=== PATIENT | female | born 1980 | race Caucasian/White ===

== ENCOUNTER 2021-08-04 15:05 | Outpatient (REF) | payer MEDICARE, MEDICAID, SELFPAY ==
[2021-08-04 20:26] LABS: ALT 23 U/L (14-59); AST 21 U/L (15-37); Albumin 3.5 g/dL (3.4-5.0); Alkaline Phosphatase 99 U/L (46-116); Anion Gap 8.9 mmol/L (3-11); BUN 15 mg/dL (7-18); Bilirubin, Total 0.3 mg/dL (0.2-1.0); CO2 27.1 mmol/L (21.0-32.0); CREATININE 0.7 mg/dL (0.55-1.02); Calcium 8.3 mg/dL (8.5-10.1); Calculated LDL 136 mg/dL (<100); Chloride 104 mmol/L (98-107); Cholesterol 237 mg/dL (<200); Glucose 170 mg/dL (74-106); HDL Cholesterol 40 mg/dL (40-60); Potassium 3.5 mmol/L (3.5-5.1); Sodium 140 mmol/L (136-145); Total Protein 6.7 g/dL (6.4-8.2); Triglyceride 307 mg/dL (<150)
[2021-08-04 21:55] LABS: COMMENT (LAB VIEW ONLY) 153.36 mg/dL; Microalb ug/mg Crea 4.2 ug/mg Cr
[2021-08-10 01:36] LABS: GAD65 Ab Assay 0.01 nmol/L (<= 0.02)
== END 2021-08-04 15:06 | disposition home or self-care (01) ==
LOC: NCHCN 15:05
PROVIDERS: Visit Provider Nurse Practitioner Family
DX: E11.65 Type 2 diabetes mellitus with hyperglycemia (principal); Z79.899 Other long term (current) drug therapy
CPT/HCPCS: 80053; 80061; 86341; 82043; 82570

== ENCOUNTER 2021-12-29 18:31 | Outpatient (REF) | payer MEDICARE, MEDICAID, SELFPAY ==
[2021-12-29 15:14] LABS: Abs Immature Grans 0.02 10^3/uL (0.0-0.06); Absolute Basophil Count 0.05 10^3/uL (0.0-0.2); Absolute Eosinophil Count 0.37 10^3/uL (0.0-0.7); Absolute Lymphocyte Count 2.82 10^3/uL (1.2-3.4); Absolute Monocyte Count 0.77 10^3/uL (0.1-0.8); Absolute Neutrophil Count 5.45 10^3/uL (1.2-6.7); Basophils % 0.5; Eosinophils % 3.9; HCT 41.7 % (36.0-46.0); HGB 14.1 g/dL (11.2-15.7); Immature Grans % 0.2; Lymphocytes % 29.7; MCH 30.9 pg (27.0-33.0); MCHC 33.8 % (32.0-36.0); MCV 91 fL (80-95); MPV 10.7 fL (8.0-11.0); Monocytes % 8.1; Neutrophils % 57.6; Platelet Count 305 10^3/uL (130-400); RBC 4.56 10^6/uL (3.93-5.22); RDW 12.1 % (11.7-14.6); RDW-SD 40.7 fL; WBC 9.48 10^3/uL (4.4-10.8)
[2021-12-29 15:53] LABS: ALT 20 U/L (14-59); AST 10 U/L (15-37); Albumin 3.6 g/dL (3.4-5.0); Alkaline Phosphatase 107 U/L (46-116); Anion Gap 6.8 mmol/L (3-11); BUN 14 mg/dL (7-18); Bilirubin, Total 0.2 mg/dL (0.2-1.0); CO2 28.2 mmol/L (21.0-32.0); CREATININE 0.6 mg/dL (0.55-1.02); Calcium 8.7 mg/dL (8.5-10.1); Chloride 103 mmol/L (98-107); Glucose 220 mg/dL (74-106); Potassium 4.2 mmol/L (3.5-5.1); Sodium 138 mmol/L (136-145); TSH (W/Ref FT4) 1.46 uIU/mL (0.36-3.74); Total Protein 6.6 g/dL (6.4-8.2)
[2021-12-29 16:59] LABS: Hemoglobin A1C 7.2 % (<5.7)
== END 2021-12-29 18:32 | disposition home or self-care (01) ==
LOC: NCHCN 18:31
PROVIDERS: Visit Provider Nurse Practitioner Family
DX: F43.22 Adjustment disorder with anxiety (principal); E11.9 Type 2 diabetes mellitus without complications
CPT/HCPCS: 80053; 83036; 84443; 85025

== ENCOUNTER 2022-02-23 13:25 | Emergency (ER) | payer MEDICARE, MEDICAID, SELFPAY ==
[2022-02-23 13:47] VITALS: BP 113/72; PULSE 103; RESP 20; TEMP 37.1; O2SAT 96
--- NOTE | 2022-02-23 14:00 | DI.CT_ITS ---
Exam(s) CT RENAL COLIC WO EXAM: CT RENAL COLIC WO CLINICAL HISTORY: left flank low back pain. TECHNIQUE: Imaging Protocol: Axial computed tomography images with coronal and sagittal reformatted images were created and reviewed. CONTRAST MATERIAL: Noncontrast COMPARISON: No exams were available for comparison FINDINGS: ABDOMEN: Lung Bases: Normal where visualized. Liver: Mildly enlarged. Mild fatty infiltration. No measurable mass. Gallbladder and biliary tract: No radiodense calculus or dilation. Pancreas: Normal density, no calcifications or inflammatory process. Spleen: Normal. Kidneys: Normal size, contour and axis. No radiodense stones or obstructive uropathy. No masses seen. Adrenal glands: No masses seen. Abdominal Aorta: Abdominal portion non-dilated. PELVIS: Bladder: Symmetric distention, no gross wall thickening. No evidence of stones.No visible mass. Bowel: No obstruction or bowel wall thickening. Appendix normal. Reproductive: Status post hysterectomy. Peritoneal cavity: No ascites, collection or mesenteric inflammatory response. Bones: Unremarkable for age.. IMPRESSION: Unremarkable CT scan of the abdomen and pelvis. RADIATION DOSE DELIVERED: 854.18mGy.cm Total DLP DATA REPOSITORY: All CT scans at this facility are submitted to the National Radiology Data Registry (NRDR) Dose Index Registry (DIR) with the [employer] ([employer]). RADIATION OPTIMIZATION: All CT scans at this facility use at least one of these dose optimization te chniques: automated exposure control; mA and/or kV adjustment per patient size (includes targeted exa ms where dose is matched to clinical indication); or iterative reconstruction.
[2022-02-23] MEDS: diazePAM 10 MG/2 ML SYR 5 MG IM (14:38)
[2022-02-23] MEDS: Lidocaine 5% Patch 1 PATCH TP (14:39)
--- NOTE | 2022-02-23 14:42 | NUR.NOTE ---
Nursing Note: PT MEDICATED IM VALIUM LEFT GLUT., LIDOCAINE PATCH PLACED LOWED MID SPINE PER PT REPORT OF AREA OF PAIN. PT TO DI VIA STRETCHER FOR ORDERED EXAM.
[2022-02-23 15:06] VITALS: BP 126/74; PULSE 95; RESP 18; O2SAT 97
[2022-02-23] MEDS: Ketorolac 30 MG/ML VIAL IVP (15:06)
--- NOTE | 2022-02-23 15:08 | ED.GENADUL_ITS ---
Discharge Plan Disposition Patient Disposition: Home Condition: Stable Discharge Details Clinical Impression: Pain in left lumbar region of back, Lumbar paraspinal muscle spasm Primary Care Provider: Unknown,Unknown ED Provider: Zack Downs Home Meds and New Rx's Prescriptions: New diazepam [Valium] 5 mg tablet 5 mg PO BID PRN (Reason: muscle spasm) Qty: 14 0RF Continued insulin aspart U-100 [Novolog Flexpen U-100 Insulin] 100 unit/mL (3 mL) Insulin Pen SUBCUT TID Discharge Instructions Instructions: Acute Low Back Pain (ED), Muscle Spasm (ED) Additional Instructions: Please take ibuprofen over the counter. Take 600mg by mouth every 6 hours as needed for pain. Please take acetaminophen (tylenol) - 650mg every 6 hours by mouth as needed for pain. Please use lidocaine patches. These are [id number]. Dose according to label. Use Valium only as prescribed for muscle relaxant. Please contact your primary care physician to arrange follow-up. Return to the ER immediately for any worsening or new concerning symptoms. Stand Alone Forms: Work Release Medical Decision Making 1512 --41-year-old female with history of insulin-dependent diabetes, renal stone on, COPD, here with severe left low back pain with radiation into her left leg over the past 6 days. Patient is neurologically intact. She does have focal tenderness left low thoracic/lumbar paraspinal with associated paraspinal muscle spasm. No overlying inflammatory changes. Consider renal stone given history. CT of the abdomen pelvis was interpreted by radiology, Dr. Cordova who noted normal study. For her discomfort patient was given Toradol 30 mg IV, Valium 5 mg IM, and lid ocaine patch. -- Patient reassessed and had worsening pain after coughing. She was given Dilaudid 1 mg IV. -- Patient was reassessed and notes significant improvement in pain. Plan for discharge with outpatient follow-up. Disposition decision was made weighing the risks and benefits of hospitalization versus outpatient treatment, the risk for further decompensation, and the patient's wishes. The patient was stable and requested discharge. Prior to discharge, my usual and customary return precautions were reviewed with the patient - this included follow-up instructions and reason to return to the emergency department if condition worsens, does not improve as expected, or other new concerns arise. Lab Data Lab results reviewed: Yes I reviewed the patient's lab results. Labs: Laboratory Tests Range/Units 02/23/22 02/23/22 15:00 15:00 WBC (4.4-10.8) 10^3/uL 7.96 RBC (3.93-5.22) 10^6/uL 4.68 Hgb (11.2-15.7) g/dL 14.3 Hct (36.0-46.0) % 42.2 MCV (80-95) fL 90 MCH (27.0-33.0) pg 30.6 MCHC (32.0-36.0) % 33.9 RDW (11.7-14.6) % 12.3 Plt Count (130-400) 10^3/uL 358 MPV (8.0-11.0) fL 10.0 Immature Gran % 0.3 Neutrophils % 60.6 Lymphocytes % 26.5 Monocytes % 9.4 Eosinophils % 2.8 Basophils % 0.4 Nucleated RBC % (0.0-0.3) % 0.0 Absolute Neutrophils (1.2-6.7) 10^3/uL 4.83 Absolute Lymphocytes (1.2-3.4) 10^3/uL 2.11 Absolute Monocytes (0.1-0.8) 10^3/uL 0.75 Absolute Eosinophils (0.0-0.7) 10^3/uL 0.22 Absolute Basophils (0.0-0.2) 10^3/uL 0.03 Sodium (136-145) mmol/L 141 Potassium (3.5-5.1) mmol/L 3.9 Chloride (98-107) mmol/L 108 H Carbon Dioxide (21.0-32.0) mmol/L 25.8 Anion Gap (3-11) mmol/L 7.2 BUN (7-18) mg/dL 17 Creatinine (0.55-1.02) mg/dL 0.5 L Est GFR (CKD-EPI 2020) (mL/min/1.73m2) 121.52 Glucose (74-106) mg/dL 123 H Calcium (8.5-10.1) mg/dL 8.3 L Magnesium (1.8-2.4) mg/dL 2.0 Total Bilirubin (0.2-1.0) mg/dL 0.2 AST (15-37) U/L 16 ALT (14-59) U/L 23 Alkaline Phosphatase (46-116) U/L 104 Total Protein (6.4-8.2) g/dL 6.8 Albumin (3.4-5.0) g/dL 3.6 HPI General Mode of arrival: ambulatory . Date/Time Provider Initiated Documentation: 02/23/22 13:52 . Limitations to Documentation: other (acuity of presentation) . Information obtained by: patient . HPI Narrative: 41-year-old female with history of COPD and insulin-dependent diabetes, presents with chief complaint of back pain. Back pain started on 1230 and has persisted. Patient does not recall any specific injury. She notes pain is localized to her left lower back and radiates down her left leg as a shooting pain that is severe and rated 10/10. Pain waxes and wanes. She notes pain is worse in certain positions. No associated numbness, tingling, bowel or bladder dysfunction. Patient does have a history of renal stones and had a large stone remotely. She denies associated fever or chills. Related Data Home Medications Medication Instructions Recorded Confirmed diazepam 5 mg tablet (Valium) 5 mg PO BID PRN muscle spasm #14 02/23/22 tabs insulin aspart U-100 100 unit/mL sliding scale dose subcut TID 02/23/22 (3 mL) subcutaneous pen (Novolog Flexpen U-100 Insulin aspart) Previous Rx's Medication Instructions Recorded diazepam 5 mg tablet (Valium) 5 mg PO BID PRN muscle spasm #14 02/23/22 tabs Allergies Allergy/AdvReac Type Severity Reaction Status Date / Time Penicillins Allergy Severe Anaphylaxis Unverified 02/23/22 13:52 General Stated Complaint: Orthopedic ARUN: 3 Review of Systems All systems reviewed & are unremarkable except as noted in HPI and below Constitutional Constitutional: Denies fever(s) Gastrointestinal Gastrointestinal: Denies abdominal pain Genitourinary Genitourinary: Denies difficulty voiding and Denies dysuria Musculoskeletal Musculoskeletal: Reports as per HPI PFSH All Active Problems (Updated 02/23/22 @ 15:57 by Zack Downs MD) Pain in left lumbar region of back (Acute) Lumbar paraspinal muscle spasm (Acute) Insulin dependent type 1 diabetes mellitus (Acute) COPD (chronic obstructive pulmonary disease) (Chronic) Social History Smoking/Tobacco Use Status: Never Smoking risk assessment performed?: Yes Alcohol Intake: never Substance use type: does not use Do you feel safe at home: Yes Do you feel safe in your relationship?: Yes Exam Const General: cooperative and uncomfortable HENMT Mouth: moist mucous membranes Eyes Conjunctivae: normal conjunctivae Sclera: normal sclerae Neck Neck: trachea midline Resp Auscultation: clear to auscultation bilaterally, no rales, no rhonchi and no wheezes Cardio Rate: regular rate and not tachycardic Rhythm: regular rhythm GI Palpation: soft, not firm, no guarding, no masses, not rigid and nontender Back/Spine/Pelvis Thoracic/Lumbar Spine: thoracic and lumbar spine normal to inspection, paraspinal tenderness (low thoracic and lumbar left with spasm) and No lumbar spinal tenderness Skin Rashes: rashes noted (Psoriatic rash on extremities) Neuro General: patient alert, patient awake, patient oriented x3 and tone normal Extrem General: no edema Psych Appearance: grossly normal Mental Status: mental status grossly normal Speech and Movement: speech and movement normal Course Vital Signs Vital signs: Vital Signs Temperature 37.1 C 02/23/22 13:47 Pulse 103 H 02/23/22 13:47 Respiratory Rate 20 02/23/22 13:47 Blood Pressure 113/72 02/23/22 13:47 Pulse Oximetry 96 02/23/22 13:47 Temperature 37.1 C 02/23/22 13:47 Temperature Source Tympanic 02/23/22 13:47 Pulse 95 H 02/23/22 15:06 Respiratory Rate 18 02/23/22 15:06 Blood Pressure 126/74 02/23/22 15:06 Blood Pressure Position Supine 02/23/22 13:47 Pulse Oximetry 97 02/23/22 15:06 Oxygen Delivery Method Room Air 02/23/22 15:06 Oxygen Flow Rate 0 02/23/22 15:06 Pain Level 8 02/23/22 15:06 Lab/Test Results Lab/Test Results: POC- Test(urine) Negative
[2022-02-23 15:15] LABS: Abs Immature Grans 0.02 10^3/uL (0.0-0.06); Absolute Basophil Count 0.03 10^3/uL (0.0-0.2); Absolute Eosinophil Count 0.22 10^3/uL (0.0-0.7); Absolute Lymphocyte Count 2.11 10^3/uL (1.2-3.4); Absolute Monocyte Count 0.75 10^3/uL (0.1-0.8); Absolute Neutrophil Count 4.83 10^3/uL (1.2-6.7); Basophils % 0.4; Eosinophils % 2.8; HCT 42.2 % (36.0-46.0); HGB 14.3 g/dL (11.2-15.7); Immature Grans % 0.3; Lymphocytes % 26.5; MCH 30.6 pg (27.0-33.0); MCHC 33.9 % (32.0-36.0); MCV 90 fL (80-95); Monocytes % 9.4; Neutrophils % 60.6; Platelet Count 358 10^3/uL (130-400); RBC 4.68 10^6/uL (3.93-5.22); RDW 12.3 % (11.7-14.6); RDW-SD 40.3 fL; WBC 7.96 10^3/uL (4.4-10.8)
[2022-02-23] MEDS: HYDROmorphone 2 MG/ML SYR 1 MG IVP (15:23)
[2022-02-23 15:32] LABS: ALT 23 U/L (14-59); AST 16 U/L (15-37); Albumin 3.6 g/dL (3.4-5.0); Alkaline Phosphatase 104 U/L (46-116); Anion Gap 7.2 mmol/L (3-11); BUN 17 mg/dL (7-18); Bilirubin, Total 0.2 mg/dL (0.2-1.0); CO2 25.8 mmol/L (21.0-32.0); CREATININE 0.5 mg/dL (0.55-1.02); Calcium 8.3 mg/dL (8.5-10.1); Chloride 108 mmol/L (98-107); Estimated GFR 121.52 (mL/min/1.73m2); Glucose 123 mg/dL (74-106); Potassium 3.9 mmol/L (3.5-5.1); Sodium 141 mmol/L (136-145); Total Protein 6.8 g/dL (6.4-8.2)
[2022-02-23 16:35] VITALS: BP 122/91; PULSE 101; TEMP 36.4; O2SAT 96
== END 2022-02-23 16:36 | disposition home or self-care (01) ==
PROVIDERS: Emergency Provider Student in an Organized Health Care Education/Training Program
DX: M62.830 Muscle spasm of back (principal); R21 Rash and other nonspecific skin eruption; J44.9 Chronic obstructive pulmonary disease, unspecified; E10.9 Type 1 diabetes mellitus without complications; Z79.4 Long term (current) use of insulin
CPT/HCPCS: 80053; 81025; 96372; 96374; 96375; 99284; 74176; 83735; 85025; J1170; J1885; J3360

== ENCOUNTER 2022-03-02 07:38 | Emergency (ER) | payer MEDICARE, MEDICAID, SELFPAY ==
[2022-03-02] VITALS (15 sets, daily range): BP systolic 92–120; BP diastolic 58–77; PULSE 109–120; RESP 20; TEMP 36.7; O2SAT 90–100
--- OUTSIDE RECORDS SUMMARY | 2022-03-02 07:59 | XMS_ITS | Continuity of Care Document ---
:1980 Author Organization [facility] Address [address] [place] [address] Encounter NCTY_WA Date(s): 02/24/22 - 02/25/22 [facility] [address] [place] [address] Encounter Diagnosis Lumbosacral radiculopathy (Discharge Diagnosis) - 02/25/22 Discharge Disposition: Home or Self Care Attending Physician: Anuel Noriega MD Admitting Physician: Anuel Noriega MD Allergies, Adverse Reactions, Alerts Substance Reaction Severity Status SHELLFISH DERIVED Unknown Active acetaminophen-hydrocodone Unknown Active acetaminophen-oxycodone Unknown Active varicella virus vaccine Skin rash Mild Active cephalosporins Unknown Active penicillins Unknown Active Assessment and Plan Extracted from: Title: Clinical Document Author: Rasheeda Christian Date: 02/25/22 Diagnosis: 1. Lumbosacral radiculopathy Comment: Diagnosis: Leg pain-swelling Comment: Functional Status 02/24/22 Family Member Travel History No recent travel Recent Travel History No recent travel Other exposure to Infectious Disease None Immunizations Given and Recorded Vaccine Date Status Refusal Reason influenza virus vaccine, live 11/12/20 Recorded influenza virus vaccine, inactivated 01/22/14 Recorded influenza virus vaccine, inactivated 11/02/10 Recorded influenza virus vaccine, inactivated 12/22/09 Recorded influenza virus vaccine, inactivated 02/11/09 Recorded influenza virus vaccine, inactivated 02/28/07 Recorded tetanus/diphth/pertuss (Tdap) adult/adol 06/20/12 Recorde d tetanus/diphth/pertuss (Tdap) adult/adol 02/08/07 Recorde d Novel [id number], all formulation 02/19/09 Recorde d rubella virus vaccine 02/21/00 Recorded Medications Albuterol (Eqv-ProAir HFA) 90 mcg/inh inhalation aerosol See Instructions, . use with spacer chamber, 0 Refill(s) Start Date: 02/24/22 Status: Orderedcyclobenzaprine 5 mg oral tablet 5 mg = 1 tab, Oral, BID, PRN as needed for muscle spasm, # 20 tab, 0 Refill(s), Pharmacy: [facility] #[id number], 149.86, cm, 02/24/22 21:23:00 EST, Height/Length Dosing, 85.9, kg, 02/24/22 21:23:00 EST, Weight Dosing Start Date: 02/25/22 Stop Date: 03/07/22 Status: OrderedMedrol 4 mg oral tablet 4 mg = 1 tab, Oral, Daily, # 10 tab, 0 Refill(s), Pharmacy: [facility] #[id number], 149.86, cm,02/24/22 21:23:00 EST, Height/Length Dosing, 85.9, kg, 02/24/22 21:23:00 EST, Weight Dosing Start Date: 02/25/22 Stop Date: 03/07/22 Status: OrderedNovoLOG FlexPen 100 units/mL injectable solution See Instructions, Subcutaneous BID(AC), 0 Refill(s) Start Date: 02/24/22 Status: OrderedoxyCODONE 5 mg oral capsule See Instructions, PRN as needed for pain, 1-2 cap Oral every 6 hr, # 10 cap, 0 Refill(s), Pharmacy: [facility] #[id number], 149, cm, 02/26/22 2:12:00 EST, Height/Length Dosing, 76, kg, 02/26/22 2:12:00 EST, Weight Dosing Start Date: 02/26/22 Status: OrderedTresiba 40 units =, Subcutaneous, Daily, 0 Refill(s) Start Date: 02/24/22 Status: OrderedValium 5 mg =, Oral, BID, 0 Refill(s) Start Date: 02/24/22 Status: OrderedValium 2 mg oral tablet 2 mg = 1 tab, Oral, BID, 0 Refill(s) Start Date: 02/24/22 Status: OrderedXopenex HFA 45 mcg/inh inhalation aerosol 1 puffs, Inhale, every 4 hr, PRN as needed for wheezing, # 15 g, 2 Refill(s), Pharmacy: [facility] #[id number] Start Date: 11/18/21 Status: Ordered Results Laboratory List Name Date Basic Metabolic Panel 02/24/22 C-Reactive Protein High Sensitivity 02/24/22 CBC w/ Diff 02/24/22 Test Urine Qual 02/24/22 Urinalysis with Micro if Indicated and Culture if Christin cated 02/24/22 Automated Diff 02/24/22 Most recent to oldest [Reference Range]: 1 WBC [5.0-10.0 x10^3/mcL] 9.8 x10^3/mcL (02/24/22 10:06 PM) RBC [4.1-5.3 x10^6/mcL] 4.4 x10^6/mcL (02/24/22 10:06 PM) Neutro Auto [40.0-75.0 %] 58.6 % (02/24/22 10:06 PM) Lymph Auto [20.0-50.0 %] 29.4 % (02/24/22 10:06 PM) [place] Auto [2.0-15.0 %] 8.5 % (02/24/22 10:06 PM) Basophil Auto [0.0-1.0 %] 0.3 % (02/24/22 10:06 PM) BUN [7-18 mg/dL] 24 mg/dL *HI* (02/24/22 10:06 PM) UA Color Yellow (02/24/22 9:48 PM) Glucose Level [74-106 mg/dL] 97 mg/dL (02/24/22 10:06 PM) Potassium Level [3.5-5.1 mmol/L] 3.7 mmol/L (02/24/22 10:06 PM) MCV [80.0-96.0] 92.5 (02/24/22 10:06 PM) UA Urobilinogen Normal (02/24/22 9:48 PM) UA Bili [Negative] Negative (02/24/22 9:48 PM) UA Ketones Trace *ABN* (02/24/22 9:48 PM) MCHC [31.0-35.0 g/dL] 32.8 g/dL (02/24/22 10:06 PM) Sodium Level [136-145 mmol/L] 139 mmol/L (02/24/22 10:06 PM) UA Leuk Est Negative (02/24/22 9:48 PM) UA Nitrite Negative (02/24/22 9:48 PM) UA Glucose [Negative] Negative (02/24/22 9:48 PM) Hct [37.0-47.0 %] 40.8 % (02/24/22 10:06 PM) Calcium Level [8.5-10.1 mg/dL] 8.5 mg/dL (02/24/22 10:06 PM) UA Protein Negative (02/24/22 9:48 PM) MCH [26.0-32.0 pg] 30.4 pg (02/24/22 10:06 PM) Neutro Absolute 5.7 x10^3/mcL *NA* (02/24/22 10:06 PM) Hgb [12.0-16.0 g/dL] 13.4 g/dL (02/24/22 10:06 PM) UA Blood Negative (02/24/22 9:48 PM) UA Spec Grav 1.025 *NA* (02/24/22 9:48 PM) Platelets [130-450 x10^3/mcL] 336 x10^3/mcL (02/24/22 10:06 PM) CO2 [21-32 mmol/L] 30 mmol/L (02/24/22 10:06 PM) UA pH 6.5 *NA* (02/24/22 9:48 PM) eGFR Non-AA [>=60] 102 (02/24/22 10:06 PM) eGFR AA [>=60] 102 (02/24/22 10:06 PM) UA Appear Clear (02/24/22 9:48 PM) Chloride Level [98-107 mmol/L] 104 mmol/L (02/24/22 10:06 PM) RDW-CV [11.7-17.0 %] 12.5 % (02/24/22 10:06 PM) Imm Gran Auto [0.0-0.9 %] 0.2 % (02/24/22 10:06 PM) CRP High Sens [0.00-3.00 mg/L] 5.74 mg/L *HI* (02/24/22 10:06 PM) Creatinine Level [0.55-1.02 mg/dL] 0.76 mg/dL (02/24/22 10:06 PM) Eos, Auto [1.0-6.0 %] 3.0 % (02/24/22 10:06 PM) U hCG Ql Negative (02/24/22 9:48 PM) Vital Signs Most recent to oldest [Reference 1 2 3 Range]: Temperature Temporal Artery [36-38 36 Deg C Deg C] (02/24/22 9:23 PM) Peripheral Pulse Rate [60-100 bpm] 78 bpm 101 bpm 101 bpm (02/25/22 2:00 AM) *HI* *HI* (02/24/22 9:23 PM) (02/24/22 9:00 PM ) Respiratory Rate [12-24 br/min] 16 br/min 22 br/min (02/25/22 2:00 AM) (02/24/22 9:23 PM) Blood Pressure [90-140/60-90 mmHg] 124/89 mmHg 136/84 mmHg (02/25/22 2:00 AM) (02/24/22 9:00 PM) Weight Dosing 85.90 kg (02/24/22 9:23 PM) Weight Estimated 85.90 kg (02/24/22 9:00 PM) Height/Length Dosing 149.860 cm (02/24/22 9:23 PM) Height/Length Estimated 149.860 cm (02/24/22 9:00 PM) Social History Social History Type Response Tobacco Never tobacco user Tobacco U se:. Sex Female Hospital Discharge Instructions Patient Fboanndch08/06/2023 13:14:17Radicular PainRadicular Pain Radicular pain is a type of pain that spreads from your back or neck along a spinal nerve. Spinal nerves are nerves that leave the spinal cord and go to the muscles. Radicular pain is sometimes called radiculopathy, radiculitis, or a pinched nerve. When you have this type of pain, you may also have weakness, numbness, or tingling in the area of your body that is supplied by the nerve. The pain may feel sharp and burning. Depending on which spinal nerve is affected, the pain may occur in the: ??? Neck area (cervical radicular pain). You may also feel pain, numbness, weakness, or tingling in the arms. ??? Mid-spine area (thoracic radicular pain). You would feel this pain in the back and chest. This type is rare. ??? Lower back area (lumbar radicular pain). You would feel this pain as low back pain. You may feelpain, numbness, weakness, or tingling in the buttocks or legs. Sciatica is a type of lumbar radicular pain that shoots down the back of the leg. Radicular pain occurs when one of the spinal nerves becomes irritated or squeezed (compressed). It is often caused by something pushing on a spinal nerve, such as one of the bones of the spine (vertebrae) or one of the round cushions between vertebrae (intervertebral disks). This can result from: ??? An injury. ??? Wear and tear or aging of a disk. ??? The growth of a bone spur that pushes on the nerve. Radicular pain often goes away when you follow instructions from your health care provider for relieving pain at home. Follow these instructions at home: Managing pain ??? If directed, put ice on the affected area: ??? Put ice in a plastic bag. ??? Place a towel between your skin and the bag. ??? Leave the ice on for 20 minutes, 2???3 times a day. ??? If directed, apply heat to the affected area as often as told by your health care provider. Use the heat source that your health care provider recommends, such as a moist heat pack or a heating pad. ??? Place a towel between your skin and the heat source. ??? Leave the heat on for 20???30 minutes. ??? Remove the heat if your skin turns bright red. This is especially important if you are unable tofeel pain, heat, or cold. You may have a greater risk of getting burned. Activity ??? Do not sit or rest in bed for long periods of time. ??? Try to stay as active as possible. Ask your health care provider what type of exercise or activity is best for you. ??? Avoid activities that make your pain worse, such as bending and lifting. ??? Do not lift anything that is heavier than 10 lb (4.5 kg), or the limit that you are told, until your health care provider says that it is safe. ??? Practice using proper technique when lifting items. Proper lifting technique involves bending your knees and rising up. ??? Do strength and qsycl-ux-pknnur exercises only as told by your health care provider or physical therapist. General instructions ??? Take uvca-uhx-mbmdisg and prescription medicines only as told by your health care provider. ??? Pay attention to any changes in your symptoms. ??? Keep all follow-up visits as told by your health care provider. This is important. ??? Your health care provider may send you to a physical therapist to help with this pain. Contact a health care provider if: ??? Your pain and other symptoms get worse. ??? Your pain medicine is not helping. ??? Your pain has not improved after a few weeks of home care. ??? You have a fever. Get help right away if: ??? You have severe pain, weakness, or numbness. ??? You have difficulty with bladder or bowel control. Summary ??? Radicular pain is a type of pain that spreads from your back or neck along a spinal nerve. ??? When you have radicular pain, you may also have weakness, numbness, or tingling in the area of your body that is supplied by the nerve. ??? The pain may feel sharp or burning. ??? Radicular pain may be treated with ice, heat, medicines, or physical therapy. This information is not intended to replace advice given to you by your health care provider. Make sure you discuss any questions you have with your health care provider. Document Revised: 08/21/2018 Document Reviewed: 08/21/2018 [employer] Patient Education ?? 2021 [employer] 02/25/2022 13:14:15Back ExercisesBack Exercises The following exercises strengthen the muscles that help to support the trunk (torso) and back. Theyalso help to keep the lower back flexible. Doing these exercises can help to prevent or lessen existing low back pain. ??? If you have back pain or discomfort, try doing these exercises 2???3 times each day or as told by your health care provider. ??? As your pain improves, do them once each day, but increase the number of times that you repeat the steps for each exercise (do more repetitions). ??? To prevent the recurrence of back pain, continue to do these exercises once each day or as told by your health care provider. Do exercises exactly as told by your health care provider and adjust them as directed. It is normal to feel mild stretching, pulling, tightness, or discomfort as you do these exercises, but you should stop right away if you feel sudden pain or your pain gets worse. Exercises Single knee to chest Repeat these steps 3???5 times for each le. Lie on your back on a firm bed or the floor with your legs extended. 2. Bring one knee to your chest. Your other leg should stay extended and in contact with the floor. 3. Hold your knee in place by grabbing your knee or thigh with both hands and hold. 4. Pull on your knee until you feel a gentle stretch in your lower back or buttocks. 5. Hold the stretch for 10???30 seconds. 6. Slowly release and straighten your leg. Pelvic tilt Repeat these steps 5???10 times: 1. Lie on your back on a firm bed or the floor with your legs extended. 2. Bend your knees so they are pointing toward the ceiling and your feet are flat on the floor. 3. Tighten your lower abdominal muscles to press your lower back against the floor. This motion willtilt your pelvis so your tailbone points up toward the ceiling instead of pointing to your feet or the floor. 4. With gentle tension and even breathing, hold this position for 5???10 seconds. Cat-cow Repeat these steps until your lower back becomes more flexible: 1. Get into a qwhtg-kel-mwufj position on a firm bed or the floor. Keep your hands under your shoulders, and keep your knees under your hips. You may place padding under your knees for comfort. 2. Let your head hang down toward your chest. Contract your abdominal muscles and point your tailbone toward the floor so your lower back becomes rounded like the back of a cat. 3. Hold this position for 5 seconds. 4. Slowly lift your head, let your abdominal muscles relax, and point your tailbone up toward the ceiling so your back forms a sagging arch like the back of a cow. 5. Hold this position for 5 seconds. Press-ups Repeat these steps 5???10 times: 1. Lie on your abdomen (face-down) on a firm bed or the floor. 2. Place your palms near your head, about shoulder-width apart. 3. Keeping your back as relaxed as possible and keeping your hips on the floor, slowly straighten your arms to raise the top half of your body and lift your shoulders. Do not use your back muscles to raise your upper torso. You may adjust the placement of your hands to make yourself more comfortable. 4. Hold this position for 5 seconds while you keep your back relaxed. 5. Slowly return to lying flat on the floor. Bridges Repeat these steps 10 times: 1. Lie on your back on a firm bed or the floor. 2. Bend your knees so they are pointing toward the ceiling and your feet are flat on the floor. Yourarms should be flat at your sides, next to your body. 3. Tighten your buttocks muscles and lift your buttocks off the floor until your waist is at almost the same height as your knees. You should feel the muscles working in your buttocks and the back of your thighs. If you do not feel these muscles, slide your feet 1???2 inches (2.5???5 cm) farther away from your buttocks. 4. Hold this position for 3???5 seconds. 5. Slowly lower your hips to the starting position, and allow your buttocks muscles to relax completely. If this exercise is too easy, try doing it with your arms crossed over your chest. Abdominal crunches Repeat these steps 5???10 times: 1. Lie on your back on a firm bed or the floor with your legs extended. 2. Bend your knees so they are pointing toward the ceiling and your feet are flat on the floor. 3. Cross your arms over your chest. 4. Tip your chin slightly toward your chest without bending your neck. 5. Tighten your abdominal muscles and slowly raise your torso high enough to lift your shoulder blades a tiny bit off the floor. Avoid raising your torso higher than that because it can put too much stress on your lower back and does not help to strengthen your abdominal muscles. 6. Slowly return to your starting position. Back lifts Repeat these steps 5???10 times: 1. Lie on your abdomen (face-down) with your arms at your sides, and rest your forehead on the floor. 2. Tighten the muscles in your legs and your buttocks. 3. Slowly lift your chest off the floor while you keep your hips pressed to the floor. Keep the backof your head in line with the curve in your back. Your eyes should be looking at the floor. 4. Hold this position for 3???5 seconds. 5. Slowly return to your starting position. Contact a health care provider if: ??? Your back pain or discomfort gets much worse when you do an exercise. ??? Your worsening back pain or discomfort does not lessen within 2 hours after you exercise. If you have any of these problems, stop doing these exercises right away. Do not do them again unless your health care provider says that you can. Get help right away if: ??? You develop sudden, severe back pain. If this happens, stop doing the exercises right away. Do not do them again unless your health care provider says that you can. This information is not intended to replace advice given to you by your health care provider. Make sure you discuss any questions you have with your health care provider. Document Revised: 04/21/2021 Document Reviewed: 04/21/2021 [employer] Patient Education ?? 2021 [employer]. Follow Up Care02/24/2022 20:55:20With:Follow up with primary care provider [facility] Nitza Corcoran MD: PERFORM Event Display: ED Note Physician Authored Date: [id number] HELENA DOMINGUEZ :1980 Age:41 years Sex:Female Visit Date:02/24/2022 Basic Information Time Seen: Anuel Noriega MD / 02/24/2022 21:02 Chief Complaint Pt states new ??pain to Buttocks, down ??L leg,,wrapping around leg ??Feb 18. Pt was powerwslking .Was at PCP yesterday, sent to [facility] ED, was worked up . Given valium 5mg. States didnt help pain, just made her sleepy. States doesnt like medication, wants History Of Present Illness: I took over for the care of this patient at 7 AM this morning. ??She presented??to our emergency department last night with complaint of??back pain??with radiation down the leg??associated with numbness around her groin, and urinary leakage on coughing. Pt had been seen at [facility] the night before and had a CT of the spine showing DJD. She is pending MRI of the L spine and has received steroids, flexeril, Toradol, and Morphine overnight with good control of her pain. She reportedly ambulated to the bathroom without difficulties. MRI resulted at 1400 with disc herniation and nerve root compression at L5-S1 which on reevaluationcorrelates well with the patient's symptoms. Her pain is currently well controlled. i have discussedthe results and anticipated course extensively with ehr. She is requesting discharge and has an appointment with her pcp in 1 week. We discussed return precautions, all questions answered. Physical Exam Vitals & Measurements T:??36?C ??(Temporal Artery)?? HR:??78??(Peripheral)?? RR:??16?? BP:??124/89?? SpO2:??100%?? HT:??149.860??cm?? WT:??85.90??kg??(Estimated)?? Pain Score:??10?? O2 Therapy:??Room air?? Procedure No Qualifying Data Assessment/Plan 1.??Lumbosacral radiculopathy??M54.17 Ordered: cyclobenzaprine 5 mg oral tablet, 5 mg = 1 tab, Oral, BID, PRN as needed for muscle spasm, # 20 tab, 0 Refill(s), Pharmacy: [facility] #[id number], 149.86, cm, 02/24/22 21:23:00 EST, Height/Length Dosing, 85.9, kg, 02/24/22 21:23:00 EST, Weight Dosing Medrol 4 mg oral tablet, 4 mg = 1 tab, Oral, Daily, # 10 tab, 0 Refill(s), Pharmacy: [facility] #[id number], 149.86, cm, 02/24/22 21:23:00 EST, Height/Length Dosing, 85.9, kg, 02/24/22 21:23:00 EST, Weight Dosing Discharge Patient, 02/25/22 14:14:00 EST, Constant Indicator ?? Patient Education Radicular Pain Back Exercises Follow Up With When Contact Information Follow up with primary care provider Within 1 to 2 weeks Additional Instructions: Medication Reconciliation New Prescription cyclobenzaprine (cyclobenzaprine 5 mg oral tablet)1 tab Oral (given by mouth) 2 times a day as needed as needed for muscle spasm for 10 Days. Refills: 0. ?? methylPREDNISolone (Medrol 4 mg oral tablet)1 tab Oral (given by mouth) every day for 10 Days. Refills: 0. ?? Unchanged albuterol (Albuterol (Eqv-ProAir HFA) 90 mcg/inh inhalation aerosol) ?? diazePAM (Valium 2 mg oral tablet)1 tab Oral (given by mouth) 2 times a day. ?? diazePAM (Valium)5 Milligrams Oral (given by mouth) 2 times a day. ?? insulin aspart (NovoLOG FlexPen 100 units/mL injectable solution)Subcutaneous BID(AC). ?? insulin degludec (Tresiba)40 Units Subcutaneous (under the skin) every day. ?? levalbuterol (Xopenex HFA 45 mcg/inh inhalation aerosol)1 Puffs Inhale (breathe in) every 4 hours asneeded as needed for wheezing. Refills: 2. Problem List/Past Medical History Ongoing No qualifying data Historical No qualifying data Medication Administration Given !-Decadron, IV Piggyback !-Flexeril, 10 mg, Oral cyclobenzaprine, 10 mg, Oral gabapentin, 300 mg, Oral morphine, 4 mg, IV Push morphine, 4 mg, IV Push morphine, 4 mg, IV Push morphine, 4 mg, IV Push morphine, 4 mg, IV Push Toradol, 30 mg, IV Push Toradol, 15 mg, IV Push Valium, 5 mg, Oral Allergies varicella virus vaccine??(Skin rash) SHELLFISH DERIVED acetaminophen-hydrocodone acetaminophen-oxycodone cephalosporins morphine penicillins Social History Alcohol Never Electronic Cigarette/Vaping Electronic Cigarette Use: Never. Substance Use Current, CBD Tobacco Never tobacco user Tobacco Use:. Lab Results CBC and Differential?? LATEST RESULTS?? WBC?? 02/24/22 22:06?? 9.8?? RBC?? 02/24/22 22:06?? 4.4?? Hgb?? 02/24/22 22:06?? 13.4?? Hct?? 02/24/22 22:06?? 40.8?? MCV?? 02/24/22 22:06?? 92.5?? MCH?? 02/24/22 22:06?? 30.4?? MCHC?? 02/24/22 22:06?? 32.8?? RDW-CV?? 02/24/22 22:06?? 12.5?? Platelets?? 02/24/22 22:06?? 336?? Neutro Auto?? 02/24/22 22:06?? 58.6?? Lymph Auto?? 02/24/22 22:06?? 29.4?? [place] Auto?? 02/24/22 22:06?? 8.5?? Eos, Auto?? 02/24/22 22:06?? 3.0?? Basophil Auto?? 02/24/22 22:06?? 0.3?? Imm Gran Auto?? 02/24/22 22:06?? 0.2?? Neutro Absolute?? 02/24/22 22:06?? 5.7? Routine Chemistry?? LATEST RESULTS?? Sodium Level?? 02/24/22 22:06?? 139?? Potassium Level?? 02/24/22 22:06?? 3.7?? Chloride Level?? 02/24/22 22:06?? 104?? CO2?? 02/24/22 22:06?? 30?? BUN?? 02/24/22 22:06?? 24 ??High?? Glucose Level?? 02/24/22 22:06?? 97?? Creatinine Level?? 02/24/22 22:06?? 0.76?? eGFR AA?? 02/24/22 22:06?? 102?? eGFR Non-AA?? 02/24/22 22:06?? 102?? Calcium Level?? 02/24/22 22:06?? 8.5?? CRP High Sens?? 02/24/22 22:06?? 5.74 ??High? Testing?? LATEST RESULTS?? U hCG Ql?? 02/24/22 21:48?? Negative? UA Macroscopic?? LATEST RESULTS?? UA Color?? 02/24/22 21:48?? Yellow?? UA Appear?? 02/24/22 21:48?? Clear?? UA Glucose?? 02/24/22 21:48?? Negative?? UA Bili?? 02/24/22 21:48?? Negative?? UA Ketones?? 02/24/22 21:48?? Trace Abnormal?? UA Spec Grav?? 02/24/22 21:48?? 1.025?? UA Blood?? 02/24/22 21:48?? Negative?? UA pH?? 02/24/22 21:48?? 6.5?? UA Protein?? 02/24/22 21:48?? Negative?? UA Urobilinogen?? 02/24/22 21:48?? Normal?? UA Nitrite?? 02/24/22 21:48?? Negative?? UA Leuk Est?? 02/24/22 21:48?? Negative? Electronically Signed on 02/25/22 02:31 PM Nitza Corcoran William Alexander MD: PERFORM Event Display: ED Note Physician Authored Date: [id number] ALBERTO HELENA :1980 Age:41 years Sex:Female Visit Date:02/24/2022 Primary Care Physician: Dada Vicente NP Basic Information Time Seen: Anuel Noriega MD / 02/24/2022 21:02 Chief Complaint Pt states new ??pain to Buttocks, down ??L leg,,wrapping around leg ??Feb 18. Pt was powerwslking .Was at PCP yesterday, sent to [facility] ED, was worked up . Given valium 5mg. States didnt help pain, just made her sleepy. States doesnt like medication, wants History Of Present Illness: This is a 41-year-old lady with a history significant for type 2 diabetes who presents today for evaluation of low back pain. ??She indicates that symptoms began about a week or so ago??after she was power walking and doing some squats. ??She states that her symptoms have become progressively worse, she reports pain shooting down her entire left leg??and that she is also having pain shooting into now her right thigh as well.?? Symptoms are worse with any attempted ambulation, somewhat better withrest.?? She does still report severe symptoms at rest.?? She states that she is having numbness intoher??groin bilaterally. ??She states that she leaks urine whenever she coughs??but has not had any??bowel symptoms. ??She denies any fevers or chills.?? She was seen at [facility] last evening, she states that she underwent a CT scan??which showed likely disc degeneration but no acute??process, was discharged on??muscle relaxers??which she states have not been helping. Review of Systems: Positive for back pain otherwise as noted in HPI Physical Exam Vitals & Measurements T:??36?C ??(Temporal Artery)?? HR:??78??(Peripheral)?? RR:??16?? BP:??124/89?? SpO2:??100%?? HT:??149.860??cm?? WT:??85.90??kg??(Estimated)?? Pain Score:??10?? O2 Therapy:??Room air?? Vital signs and nursing note reviewed ?? CONSTITUTIONAL: _Tearful but not??toxic SKIN: _Warm, dry, and intact without rash EYES: _extraocular movements are grossly intact, clear conjunctiva HENT: _Normocephalic, atraumatic, moist mucus membranes NECK: _no obvious swelling, normal range of motion PULMONARY: _normal chest rise and fall, no respiratory distress or stridor CARDIOVASCULAR: _regular rate, distal extremities are warm and well perfused GASTROINTESTINAL: _nondistended, non-tender GENITOURINARY: _deferred NEUROLOGIC: _normal speech, moves all extremities MUSCULOSKELETAL: _Spine???endorses fairly diffuse nonfocal tenderness to palpation, no step-offs ordeformities are noted.?? She endorses??some numbness??over the dorsal lateral aspect of both feet,??more proximally she has intact sensation,??she states unable to extend her great toes,??dorsiflex feet ??but does have flicker movement??with each attempt.?? She appears to have 5 out of 5 strength with extension at knee and??flexion at hip. PSYCHIATRIC: _normal mood and affect Medical Decision Making: Is a 41-year-old lady who presents today for evaluation of low back pain.?? She indicates progressive, worsening, now severe pain??in her lumbar back over the last week??with essentially??unrevealing CT scan last evening at??[facility].?? She endorses some numbness and weakness??distal dermatome/myotome??but appears to have good strength more proximally. ??She was ambulatory into the emergency departmentalthough with significant pain.?? No fevers or chills. ??She indicates that she is having urinary leakage, postvoid residual however is 43 mL.?? She does endorse groin pain as well.?? Differential includes but is not limited to lumbar back strain,??compression fracture??(although less likely given??her report of CT last evening),??no abdominal pain to raise suspicion for??referred intra-abdominal process, possible sciatica, radiculopathy. ??Based on history and physical alone do not feel can reasonably exclude cord compression syndromes with her new symptoms??and as such we will pursue MRI which unfortunately we will not be available till morning. ??In the meantime will administer??symptomatic treatment as ordered Procedure No Qualifying Data Reexamination/Reevaluation Labs reviewed???no significant leukocytosis or anemia. ??Renal function preserved and electrolytes generally reassuring. ??Urine noninfectious. ??CRP??reassuring at 5.?? We will proceed with MRI orderwithout contrast??as she has no stigmata of??or serologic markers for infectious process Assessment/Plan Ordered: MRI Spine Lumbar w/o Contrast, 02/24/22 23:17:00 EST, Stat, Reason: low back pain with b/l radicular symptoms, endorses groin numbness, eval for cord compression syndromes. no fever, leukocytosis, normal crp, Yes, No, Transport Mode: Stretcher, Exam to be performed outside [facility]... Medication Reconciliation Unchanged albuterol (Albuterol (Eqv-ProAir HFA) 90 mcg/inh inhalation aerosol) ?? diazePAM (Valium 2 mg oral tablet)1 tab Oral (given by mouth) 2 times a day. ?? diazePAM (Valium)5 Milligrams Oral (given by mouth) 2 times a day. ?? insulin aspart (NovoLOG FlexPen 100 units/mL injectable solution)Subcutaneous BID(AC). ?? insulin degludec (Tresiba)40 Units Subcutaneous (under the skin) every day. ?? levalbuterol (Xopenex HFA 45 mcg/inh inhalation aerosol)1 Puffs Inhale (breathe in) every 4 hours asneeded as needed for wheezing. Refills: 2. Problem List/Past Medical History Ongoing No qualifying data Historical No qualifying data Medication Administration Given !-Decadron, IV Piggyback cyclobenzaprine, 10 mg, Oral morphine, 4 mg, IV Push morphine, 4 mg, IV Push morphine, 4 mg, IV Push Toradol, 15 mg, IV Push Valium, 5 mg, Oral Allergies varicella virus vaccine??(Skin rash) SHELLFISH DERIVED acetaminophen-hydrocodone acetaminophen-oxycodone cephalosporins morphine penicillins Social History Alcohol Never Electronic Cigarette/Vaping Electronic Cigarette Use: Never. Substance Use Current, CBD Tobacco Never tobacco user Tobacco Use:. Lab Results CBC and Differential?? LATEST RESULTS?? WBC?? 02/24/22 22:06?? 9.8?? RBC?? 02/24/22 22:06?? 4.4?? Hgb?? 02/24/22 22:06?? 13.4?? Hct?? 02/24/22 22:06?? 40.8?? MCV?? 02/24/22 22:06?? 92.5?? MCH?? 02/24/22 22:06?? 30.4?? MCHC?? 02/24/22 22:06?? 32.8?? RDW-CV?? 02/24/22 22:06?? 12.5?? Platelets?? 02/24/22 22:06?? 336?? Neutro Auto?? 02/24/22 22:06?? 58.6?? Lymph Auto?? 02/24/22 22:06?? 29.4?? [place] Auto?? 02/24/22 22:06?? 8.5?? Eos, Auto?? 02/24/22 22:06?? 3.0?? Basophil Auto?? 02/24/22 22:06?? 0.3?? Imm Gran Auto?? 02/24/22 22:06?? 0.2?? Neutro Absolute?? 02/24/22 22:06?? 5.7? Routine Chemistry?? LATEST RESULTS?? Sodium Level?? 02/24/22 22:06?? 139?? Potassium Level?? 02/24/22 22:06?? 3.7?? Chloride Level?? 02/24/22 22:06?? 104?? CO2?? 02/24/22 22:06?? 30?? BUN?? 02/24/22 22:06?? 24 ??High?? Glucose Level?? 02/24/22 22:06?? 97?? Creatinine Level?? 02/24/22 22:06?? 0.76?? eGFR AA?? 02/24/22 22:06?? 102?? eGFR Non-AA?? 02/24/22 22:06?? 102?? Calcium Level?? 02/24/22 22:06?? 8.5?? CRP High Sens?? 02/24/22 22:06?? 5.74 ??High? Testing?? LATEST RESULTS?? U hCG Ql?? 02/24/22 21:48?? Negative? UA Macroscopic?? LATEST RESULTS?? UA Color?? 02/24/22 21:48?? Yellow?? UA Appear?? 02/24/22 21:48?? Clear?? UA Glucose?? 02/24/22 21:48?? Negative?? UA Bili?? 02/24/22 21:48?? Negative?? UA Ketones?? 02/24/22 21:48?? Trace Abnormal?? UA Spec Grav?? 01/05/23 21:48?? 1.025?? UA Blood?? 02/24/22 21:48?? Negative?? UA pH?? 02/24/22 21:48?? 6.5?? UA Protein?? 02/24/22 21:48?? Negative?? UA Urobilinogen?? 02/24/22 21:48?? Normal?? UA Nitrite?? 02/24/22 21:48?? Negative?? UA Leuk Est?? 02/24/22 21:48?? Negative? Electronically Signed on 02/25/22 06:46 AM Anuel Noriega MD Emergency department Discharge instructions Nitza Corcoran MD: PERFORM Event Display: ED Discharge Information Authored Date: [id number] HELENA DOMINGUEZ :1980 Age:41 years Sex:Female Visit Date:02/24/2022 Discharge Instructions We would like to thank you for allowing us to assist you with your healthcare needs. The following includes patient education materials and information regarding your injury/illness. Diagnosis from Today's Visit Lumbosacral radiculopathy Discharge Vitals Temperature??(Temporal Artery) 96.8 ??F (36 ??C) Heart Rate??(Peripheral) 78 Respiratory Rate?? 16 Blood Pressure?? 124/89?? Height?? 59.00 in (149.860 cm) Weight??(Estimated) 189.41 lb (85.90 kg) Allergies varicella virus vaccine??(Skin rash) SHELLFISH DERIVED acetaminophen-hydrocodone acetaminophen-oxycodone cephalosporins morphine penicillins What to Do Next Instructions from Your Care Team Please take??steroids??from Medrol Dosepak??as??prescribed on the package??for the next 10 days.?? Take ibuprofen??400 mg every 6 hours??vrkyvw-byi-sorae in the next 3 days, then as needed. Take flexeril for uncontrolled pain, preferably in the evening. ??Follow up with your primary care provider as scheduled next week. You may need a referral to rehab and/or to neurosurgery is your symptoms do not improve. Please return to the ED for any new or worsening symptoms. ?? Below is the MRI report: FINDINGS:?? Bones/joints: No acute abnormal marrow signal intensity is?? appreciated.Osseous alignment is maintained. Spinal cord: The visualized cord, conus medullaris and cauda equina?? are unremarkable without abnormal signal. No extruded, ?? fragment is otherwise appreciated.?? L1-L2: No significant spinal canal or neural foraminal narrowing is?? appreciated.?? L2-L3: No significant spinal canal or neural foraminal narrowing is?? appreciated.?? L3-L4: No significant spinal canal or neural foraminal narrowing is?? appreciated.?? L4-L5: The L4-L5 demonstrates some slight concentric overall disc?? bulging. There is some mild thecal sac triangulation with posterior?? element ligamentous hypertrophy. There is mild to moderate lateral?? recess inferior neural foraminal narrowing left slightly more so than?? right.?? L5-S1: L5-S1 demonstrates decreased disc height as well as?? desiccation type change. There is some concentric disc bulging with?? left paracentral protrusion with contiguous herniation type?? appearance. This measures approximally 7 x 10 mm on the axial?? sequence. There is mass-effect from this at the lateral recess on the?? exiting nerve roots. There is otherwise mild right and?? cvtn-oa-zpfxoxkn left neural foraminal narrowing.?? Soft tissues: No subcutaneous fluid collections are appreciated.? IMPRESSION:?? There is disc desiccation with a contiguous left paracentral lateral?? recess herniation demonstrated at the L5-S1 level contributing to?? some mass effect on the adjacent exiting nerve roots. ? You Need to Schedule the Following Appointments Follow Up with??Follow up with primary care provider When:??Within 1 to 2 weeks You were treated today on an emergency basis; it may be young to contact your primary care provider to notify them of your visit today. You may have been referred to your regular doctor or a specialist,please follow up as instructed. If your condition worsens or you can't get in to see the doctor, contact the Emergency Department. Medications What How Much When Why Instructions Next Dose New methylPREDNISolone (Medrol 4 mg oral tablet) 1 tab Oral (given by mouth) Every day Lumbosacral radiculopathy Duration: 10 Days Pickup at [facility] #[id number] Unchanged albuterol (Albuterol (Eqv-ProAir HFA) 90 mcg/ inh inhalation aerosol) See instructions Unchanged diazePAM (Valium 2 mg oral tablet) 1 tab Oral (given by mouth) 2 times a day Unchanged diazePAM (Valium) 5 Milligrams Oral (given by mouth) 2 times a day Unchanged insulin aspart (NovoLOG FlexPen 100 units/ mL injectable solution) See instructions Subcutaneous BID(AC) ?? Unchanged insulin degludec (Tresiba) 40 Units Subcutaneous (under the skin) Every day Unchanged levalbuterol (Xopenex HFA 45 mcg/ inh inhalation aerosol) 1 Puffs Inhale (breathe in) Every 4 hours as needed for as needed for wheezing Moderate asthma Pharmacy Information [facility] [place] #[id number]: [address] [phone] Education Materials Radicular Pain Radicular pain is a type of pain that spreads from your back or neck along a spinal nerve. Spinal nerves are nerves that leave the spinal cord and go to the muscles. Radicular pain is sometimes calledradiculopathy, radiculitis, or a pinched nerve. When you have this type of pain, you may also have weakness, numbness, or tingling in the area of your body that is supplied by the nerve. The pain may feel sharp and burning. Depending on which spinal nerve is affected, the pain may occur in the: ? Neck area (cervical radicular pain). You may also feel pain, numbness, weakness, or tingling in the arms. ? Mid-spine area (thoracic radicular pain). You would feel this pain in the back and chest. This type is rare. ? Lower back area (lumbar radicular pain). You would feel this pain as low back pain. You may feel pain, numbness, weakness, or tingling in the buttocks or legs. Sciatica is a type of lumbar radicular pain that shoots down the back of the leg. Radicular pain occurs when one of the spinal nerves becomes irritated or squeezed (compressed). It is often caused by something pushing on a spinal nerve, such as one of the bones of the spine (vertebrae) or one of the round cushions between vertebrae (intervertebral disks). This can result from: ? An injury. ? Wear and tear or aging of a disk. ? The growth of a bone spur that pushes on the nerve. Radicular pain often goes away when you follow instructions from your health care provider for relieving pain at home. Follow these instructions at home: Managing pain ? If directed, put ice on the affected area: ? Put ice in a plastic bag. ? Place a towel between your skin and the bag. ? Leave the ice on for 20 minutes, 2???3 times a day. ? If directed, apply heat to the affected area as often as told by your health care provider. Use the heat source that your health care provider recommends, such as a moist heat pack or a heating pad. ? Place a towel between your skin and the heat source. ? Leave the heat on for 20???30 minutes. ? Remove the heat if your skin turns bright red. This is especially important if you are unable to feel pain, heat, or cold. You may have a greater risk of getting burned. Activity ? Do not sit or rest in bed for long periods of time. ? Try to stay as active as possible. Ask your health care provider what type of exercise or activity is best for you. ? Avoid activities that make your pain worse, such as bending and lifting. ? Do not lift anything that is heavier than 10 lb (4.5 kg), or the limit that you are told, until yourhealth care provider says that it is safe. ? Practice using proper technique when lifting items. Proper lifting technique involves bending your knees and rising up. ? Do strength and zmhmb-nl-zyqkqu exercises only as told by your health care provider or physical therapist. General instructions ? Take gxhl-kyx-dklmfwe and prescription medicines only as told by your health care provider. ? Pay attention to any changes in your symptoms. ? Keep all follow-up visits as told by your health care provider. This is important. ? Your health care provider may send you to a physical therapist to help with this pain. Contact a health care provider if: ? Your pain and other symptoms get worse. ? Your pain medicine is not helping. ? Your pain has not improved after a few weeks of home care. ? You have a fever. Get help right away if: ? You have severe pain, weakness, or numbness. ? You have difficulty with bladder or bowel control. Summary ? Radicular pain is a type of pain that spreads from your back or neck along a spinal nerve. ? When you have radicular pain, you may also have weakness, numbness, or tingling in the area of your body that is supplied by the nerve. ? The pain may feel sharp or burning. ? Radicular pain may be treated with ice, heat, medicines, or physical therapy. This information is not intended to replace advice given to you by your health care provider. Make sure you discuss any questions you have with your health care provider. Document Revised: 08/21/2018 Document Reviewed: 08/21/2018 [employer] Patient Education ?? 2022 [employer] Back Exercises The following exercises strengthen the muscles that help to support the trunk (torso) and back. They also help to keep the lower back flexible. Doing these exercises can help to prevent or lessen existing low back pain. ? If you have back pain or discomfort, try doing these exercises 2???3 times each day or as told by your health care provider. ? As your pain improves, do them once each day, but increase the number of times that you repeat the steps for each exercise (do more repetitions). ? To prevent the recurrence of back pain, continue to do these exercises once each day or as told by your health care provider. Do exercises exactly as told by your health care provider and adjust them as directed. It is normalto feel mild stretching, pulling, tightness, or discomfort as you do these exercises, but you shouldstop right away if you feel sudden pain or your pain gets worse. Exercises Single knee to chest Repeat these steps 3???5 times for each le.?? Lie on your back on a firm bed or the floor with your legs extended. 2.?? Bring one knee to your chest. Your other leg should stay extended and in contact with the floor. 3.?? Hold your knee in place by grabbing your knee or thigh with both hands and hold. 4.?? Pull on your knee until you feel a gentle stretch in your lower back or buttocks. 5.?? Hold the stretch for 10???30 seconds. 6.?? Slowly release and straighten your leg. Pelvic tilt Repeat these steps 5???10 times: 1.?? Lie on your back on a firm bed or the floor with your legs extended. 2.?? Bend your knees so they are pointing toward the ceiling and your feet are flat on the floor. 3.?? Tighten your lower abdominal muscles to press your lower back against the floor. This motion will tilt your pelvis so your tailbone points up toward the ceiling instead of pointing to your feet or the floor. 4.?? With gentle tension and even breathing, hold this position for 5???10 seconds. Cat-cow Repeat these steps until your lower back becomes more flexible: 1.?? Get into a poaon-wrt-qmuth position on a firm bed or the floor. Keep your hands under your shoulders, and keep your knees under your hips. You may place padding under your knees for comfort. 2.?? Let your head hang down toward your chest. Contract your abdominal muscles and point your tailbone toward the floor so your lower back becomes rounded like the back of a cat. 3.?? Hold this position for 5 seconds. 4.?? Slowly lift your head, let your abdominal muscles relax, and point your tailbone up toward the ceiling so your back forms a sagging arch like the back of a cow. 5.?? Hold this position for 5 seconds. Press-ups Repeat these steps 5???10 times: 1.?? Lie on your abdomen (face-down) on a firm bed or the floor. 2.?? Place your palms near your head, about shoulder-width apart. 3.?? Keeping your back as relaxed as possible and keeping your hips on the floor, slowly straighten your arms to raise the top half of your body and lift your shoulders. Do not use your back muscles to raise your upper torso. You may adjust the placement of your hands to make yourself more comfortable. 4.?? Hold this position for 5 seconds while you keep your back relaxed. 5.?? Slowly return to lying flat on the floor. Bridges Repeat these steps 10 times: 1.?? Lie on your back on a firm bed or the floor. 2.?? Bend your knees so they are pointing toward the ceiling and your feet are flat on the floor. Your arms should be flat at your sides, next to your body. 3.?? Tighten your buttocks muscles and lift your buttocks off the floor until your waist is at almost thesame height as your knees. You should feel the muscles working in your buttocks and the back of yourthighs. If you do not feel these muscles, slide your feet 1???2 inches (2.5???5 cm) farther away from your buttocks. 4.?? Hold this position for 3???5 seconds. 5.?? Slowly lower your hips to the starting position, and allow your buttocks muscles to relax completely. If this exercise is too easy, try doing it with your arms crossed over your chest. Abdominal crunches Repeat these steps 5???10 times: 1.?? Lie on your back on a firm bed or the floor with your legs extended. 2.?? Bend your knees so they are pointing toward the ceiling and your feet are flat on the floor. 3.?? Cross your arms over your chest. 4.?? Tip your chin slightly toward your chest without bending your neck. 5.?? Tighten your abdominal muscles and slowly raise your torso high enough to lift your shoulder blades a tiny bit off the floor. Avoid raising your torso higher than that because it can put too much stress on your lower back and does not help to strengthen your abdominal muscles. 6.?? Slowly return to your starting position. Back lifts Repeat these steps 5???10 times: 1.?? Lie on your abdomen (face-down) with your arms at your sides, and rest your forehead on the floor. 2.?? Tighten the muscles in your legs and your buttocks. 3.?? Slowly lift your chest off the floor while you keep your hips pressed to the floor. Keep the back ofyour head in line with the curve in your back. Your eyes should be looking at the floor. 4.?? Hold this position for 3???5 seconds. 5.?? Slowly return to your starting position. Contact a health care provider if: ? Your back pain or discomfort gets much worse when you do an exercise. ? Your worsening back pain or discomfort does not lessen within 2 hours after you exercise. If you have any of these problems, stop doing these exercises right away. Do not do them again unless your health care provider says that you can. Get help right away if: ? You develop sudden, severe back pain. If this happens, stop doing the exercises right away. Do not do them again unless your health care provider says that you can. This information is not intended to replace advice given to you by your health care provider. Make sure you discuss any questions you have with your health care provider. Document Revised: 04/21/2021 Document Reviewed: 04/21/2021 [employer] Patient Education ?? 2021 [employer] Tests Performed Medications and Immunizations Administered Given !-Decadron, IV Piggyback !-Flexeril, 10 mg, Oral cyclobenzaprine, 10 mg, Oral gabapentin, 300 mg, Oral morphine, 4 mg, IV Push morphine, 4 mg, IV Push morphine, 4 mg, IV Push morphine, 4 mg, IV Push morphine, 4 mg, IV Push Toradol, 30 mg, IV Push Toradol, 15 mg, IV Push Valium, 5 mg, Oral Lab Test Name Test Result Date/Time WBC 9.8 x10^3/mcL 02/24/2022 22:06 EST RBC 4.4 x10^6/mcL 02/24/2022 22:06 EST Hgb 13.4 g/dL 02/24/2022 22:06 EST Hct 40.8 % 02/24/2022 22:06 EST MCV 92.5 02/24/2022 22:06 EST MCH 30.4 pg 02/24/2022 22:06 EST MCHC 32.8 g/dL 02/24/2022 22:06 EST RDW-CV 12.5 % 02/24/2022 22:06 EST Platelets 336 x10^3/mcL 02/24/2022 22:06 EST Neutro Auto 58.6 % 02/24/2022 22:06 EST Lymph Auto 29.4 % 02/24/2022 22:06 EST [place] Auto 8.5 % 02/24/2022 22:06 EST Eos, Auto 3.0 % 02/24/2022 22:06 EST Basophil Auto 0.3 % 02/24/2022 22:06 EST Imm Gran Auto 0.2 % 02/24/2022 22:06 EST Neutro Absolute 5.7 x10^3/mcL 02/24/2022 22:06 EST Sodium Level 139 mmol/L 02/24/2022 22:06 EST Potassium Level 3.7 mmol/L 02/24/2022 22:06 EST Chloride Level 104 mmol/L 02/24/2022 22:06 EST CO2 30 mmol/L 02/24/2022 22:06 EST BUN 24 mg/dL 02/24/2022 22:06 EST Glucose Level 97 mg/dL 02/24/2022 22:06 EST Creatinine Level 0.76 mg/dL 02/24/2022 22:06 EST eGFR AA 102 02/24/2022 22:06 EST eGFR Non-AA 102 02/24/2022 22:06 EST Calcium Level 8.5 mg/dL 02/24/2022 22:06 EST CRP High Sens 5.74 mg/L 02/24/2022 22:06 EST U hCG Ql NEGATIVE 02/24/2022 21:48 EST UA Color YELLOW. 02/24/2022 21:48 EST UA Appear CLEAR. 02/24/2022 21:48 EST UA Glucose NEGATIVE 02/24/2022 21:48 EST UA Bili NEGATIVE 02/24/2022 21:48 EST UA Ketones TRACE. 02/24/2022 21:48 EST UA Spec Grav 1.025 02/24/2022 21:48 EST UA Blood NEGATIVE 02/24/2022 21:48 EST UA pH 6.5 02/24/2022 21:48 EST UA Protein NEGATIVE 02/24/2022 21:48 EST UA Urobilinogen 0.2 Uro 02/24/2022 21:48 EST UA Nitrite NEGATIVE 02/24/2022 21:48 EST UA Leuk Est NEGATIVE 02/24/2022 21:48 EST Patient/Donkey Doctor Signature Patient Name:HELENA DOMINGUEZ I have received this information and my questions have been answered. Patient/Donkey Doctor Name: Patient/Donkey Doctor Signature: Relationship to Patient: Witness Name/Signature: Date: Electronically Signed on: 02/25/2022 14:28 ESTSigned by:GMB Discharge summary Rasheeda Christian: PERFORM Event Display: Discharge Note Authored Date: [id number] Rasheeda Christian: PERFORM Event Display: Discharge Note Authored Date: [id number] Diagnosis: 1. Lumbosacral radiculopathy Comment: Diagnosis: Leg pain-swelling Comment: Electronically Signed on 02/25/22 04:24 PM Rasheeda Christian
--- OUTSIDE RECORDS SUMMARY | 2022-03-02 07:59 | XMS_ITS | CCD ---
:1980 Author Care Team Providers Name Role Phone ART TRUJILLO Attending Physician Unavailable ART TRUJILLO Er Physician 1 NIYA Caro Registered Nurse Unavailable Vital Signs Vital Sign Value Unit Date/Time Recent/Initial? BMI (Body Mass Index) 29.37 kg/m^2 06/25/2021 09:17 In itial VS Weight Measured 165.79 lbs 06/25/2021 09:17 Initial VS Height 63 in 06/25/2021 09:17 Initial VS BSA (Body Surface Area) 1.83 m^2 06/25/2021 09:17 Initial VS BP Systolic 130 mmHg 06/25/2021 09:17 Initial VS BP Diastolic 86 mmHg 06/25/2021 09:17 Initial VS Respiratory Rate 16 bpm 06/25/2021 09:17 Initial VS Heart Rate 102 bpm 06/25/2021 09:17 Initial VS O2 % BldC Oximetry 100 % 06/25/2021 09:17 Initi al VS Body Temperature 36.2 degrees 06/25/2021 09:17 Initial VS Allergies Allergy Code Allergy Type Reaction Status [facility] [address] Drug allergy Hives Active PENICILLIN 0 Drug allergy SWELLING Active Procedures Unknown or Not Available. History of Immunizations Unknown or Not Available. Problems Unknown or Not Available. Results Unknown or Not Available. Active Medications Unknown or Not Available. Medications Administered During Visit Unknown or Not Available. Encounters Encounter Diagnosis Diagnosis Code Start Date Scabies B86 06/25/2021 Social History Smoking Status Code Start Date End Date Never smoker [id number] Patient Decision Aids Unknown or Not Available. Discharge Instructions You were admitted to [facility] on 06/25/2021 09:06 with a principal diagnosis of Scabies You were discharged from [facility] on 06/25/2021 10:15 Should you have any questions prior to d ischarge, please contact a member of your healthcare team. If you have left the ho spital and have any questions, please contact your primary care physician. Chief Complaint and Reason For Visit Chief Complaint Date of Onset BLISTERY RASH Function Status Unknown or Not Available. Plan of Care Unknown or Not Available. Referral/Transition of Care Unknown or Not Available.
--- OUTSIDE RECORDS SUMMARY | 2022-03-02 07:59 | XMS_ITS | Continuity of Care Document ---
:1980 Author Organization [facility] Address [address] [place] [address] Encounter [facility] Date(s): 02/26/22 - 02/26/22 [facility] [address] [place] [address] Discharge Disposition: Home or Self Care Attending Physician: Eduardo Gross MD Admitting Physician: Eduardo Gross MD Allergies, Adverse Reactions, Alerts Substance Reaction Severity Status SHELLFISH DERIVED Unknown Active acetaminophen-hydrocodone Unknown Active acetaminophen-oxycodone Unknown Active varicella virus vaccine Skin rash Mild Active cephalosporins Unknown Active penicillins Unknown Active Assessment and Plan Extracted from: Title: Clinical Document Author: Rasheeda Christian Date: 02/26/22 Diagnosis: Back pain Comment: Functional Status 02/26/22 Activity Status ADL Other: walk test not tolerat ed 02/26/22 Recent Travel History No recent travel Other [...] tetanus/diphth/pertuss (Tdap) adult/adol 02/08/07 Recorde d Novel [id number], all formulation 02/19/09 Recorde d rubella virus vaccine 02/21/00 Recorded Medications Albuterol (Eqv-ProAir HFA) 90 mcg/inh inhalation aerosol See Instructions, . use with spacer chamber, 0 Refill(s) Start Date: 02/24/22 Status: Orderedcyclobenzaprine 5 mg oral tablet 5 mg = 1 tab, Oral, BID, PRN as needed for muscle spasm, # 20 tab, 0 Refill(s), Pharmacy: [facility] #[id number], 149.86, cm, 02/24/22 21:23:00 EST, Height/Length Dosing, 85.9, kg, 02/24/22 21:23:00 EST, Weight Dosing Start Date: 02/25/22 Stop Date: 03/07/22 Status: OrderedMedrol 4 mg oral tablet 4 mg = 1 tab, Oral, Daily, # 10 tab, 0 Refill(s), Pharmacy: [facility] #[id number], 149.86, cm,02/24/22 21:23:00 EST, Height/Length Dosing, 85.9, kg, 02/24/22 21:23:00 EST, Weight Dosing Start Date: 02/25/22 Stop Date: 03/07/22 Status: OrderedNovoLOG FlexPen 100 units/mL injectable solution See Instructions, Subcutaneous BID(AC), 0 Refill(s) Start Date: 02/24/22 Status: OrderedoxyCODONE 5 mg oral capsule See Instructions, PRN as needed for pain, 1-2 cap Oral every 6 hr, # 10 cap, 0 Refill(s), Pharmacy: [facility] #[id number], 149, cm, 02/26/22 2:12:00 EST, Height/Length Dosing, [...] wheezing, # 15 g, 2 Refill(s), Pharmacy: [facility] #[id number] Start Date: 11/18/21 Status: Ordered Results Laboratory List Name Date Urinalysis with Microscopic 02/26/22 Urinalysis Microscopic 02/26/22 Basic Metabolic Panel (BMP) 02/26/22 Beta hCG Quantitative 02/26/22 C-Reactive Protein High Sensitivity (CRP HS) 02/26/22 CBC w/ Diff 02/26/22 Sedimentation Rate (ESR) 02/26/22 Automated Diff 02/26/22 Most recent to oldest [Reference Range]: 1 WBC [5.0-10.0 x10^3/mcL] 8.6 x10^3/mcL (02/26/22 4:29 AM) RBC [4.1-5.3 x10^6/mcL] 4.3 x10^6/mcL (02/26/22 4:29 AM) Neutro Auto [40.0-75.0 %] 64.2 % (02/26/22 4:29 AM) Lymph Auto [20.0-50.0 %] 27.3 % (02/26/22 4:29 AM) [place] Auto [2.0-15.0 %] 6.9 % (02/26/22 4:29 AM) Basophil Auto [0.0-1.0 %] 0.5 % (02/26/22 4:29 AM) BUN [7-18 mg/dL] 26 mg/dL *HI* (02/26/22 4:29 AM) UA Color Yellow (02/26/22 5:08 AM) UA WBC [0-3] 0-3 (02/26/22 5:08 AM) Glucose Level [74-106 mg/dL] 175 mg/dL *HI* (02/26/22 4:29 AM) Potassium Level [3.5-5.1 mmol/L] 4.0 mmol/L (02/26/22 4:29 AM) MCV [80.0-96.0] 91.5 (02/26/22 4:29 AM) UA Urobilinogen Normal (02/26/22 5:08 AM) UA Bili [Negative] Negative (02/26/22 5:08 AM) UA Ketones Negative (02/26/22 5:08 AM) MCHC [31.0-35.0 g/dL] 33.3 g/dL (02/26/22 4:29 AM) Sodium Level [136-145 mmol/L] 140 mmol/L (02/26/22 4:29 AM) UA RBC [0-2] 0-2 (02/26/22 5:08 AM) UA Leuk Est Negative (02/26/22 5:08 AM) UA Nitrite Negative (02/26/22 5:08 AM) UA Glucose [Negative] 1+ *ABN* (02/26/22 5:08 AM) Hct [37.0-47.0 %] 39.0 % (02/26/22 4:29 AM) UA Bacteria None Seen /HPF (02/26/22 5:08 AM) Calcium Level [8.5-10.1 mg/dL] 8.3 mg/dL *LOW* (02/26/22 4:29 AM) UA Protein Negative (02/26/22 5:08 AM) MCH [26.0-32.0 pg] 30.5 pg (02/26/22 4:29 AM) Neutro Absolute 5.5 x10^3/mcL *NA* (02/26/22 4:29 AM) Hgb [12.0-16.0 g/dL] 13.0 g/dL (02/26/22 4:29 AM) UA Blood Negative (02/26/22 5:08 AM) UA Mucous Few /HPF *ABN* (02/26/22 5:08 AM) UA Spec Grav >=1.030 *NA* (02/26/22 5:08 AM) Platelets [130-450 x10^3/mcL] 330 x10^3/mcL (02/26/22 4:29 AM) CO2 [21-32 mmol/L] 24 mmol/L (02/26/22 4:29 AM) UA Squam Epithelial [None Seen] Few *ABN* (02/26/22 5:08 AM) UA pH 5.5 *NA* (02/26/22 5:08 AM) eGFR Non-AA [>=60] 117 (02/26/22 4:29 AM) eGFR AA [>=60] 117 (02/26/22 4:29 AM) UA Appear Clear (02/26/22 5:08 AM) Chloride Level [98-107 mmol/L] 106 mmol/L (02/26/22 4:29 AM) RDW-CV [11.7-17.0 %] 12.7 % (02/26/22 4:29 AM) Imm Gran Auto [0.0-0.9 %] 0.2 % (02/26/22 4:29 AM) CRP High Sens [0.00-3.00 mg/L] 7.80 mg/L *HI* (02/26/22 4:29 AM) UA Culture Ind?. Not Applicable (02/26/22 5:08 AM) Creatinine Level [0.55-1.02 mg/dL] 0.59 mg/dL (02/26/22 4:29 AM) Eos, Auto [1.0-6.0 %] 0.9 % *LOW* (02/26/22 4:29 AM) Beta hCG Qnt [1-6 mIntlUnit/mL] <1 mIntlUnit/mL *LOW* (02/26/22 4:29 AM) ESR, Westergren [0-30 mm/hr] 12 mm/hr (02/26/22 4:29 AM) Vital Signs Most recent to oldest [Reference 1 2 3 Range]: Temperature Temporal Artery [36-38 36.5 Deg C Deg C] (02/26/22 2:01 AM) Peripheral Pulse Rate [60-100 bpm] 90 bpm 89 bpm 91 bpm (02/26/22 5:00 AM) (02/26/22 4:45 AM) (02/26/22 4:40 A M) Respiratory Rate [12-24 br/min] 22 br/min (02/26/22 2:01 AM) Blood Pressure [90-140/60-90 mmHg] 126/86 mmHg 126/86 mmHg 116/95 mmHg (02/26/22 5:00 AM) (02/26/22 4:45 AM) (02/26/22 4:40 A M) Weight Dosing 76.00 kg (02/26/22 2:12 AM) Weight Estimated 76.00 kg (02/26/22 2:01 AM) Height/Length Dosing 149.000 cm (02/26/22 2:12 AM) Height/Length Estimated 149.000 cm (1/7/23 2:01 AM) Social History Social History Type Response Tobacco Never tobacco user Tobacco U se:. Sex Female Physician Emergency department Note Eduardo Gross MD: PERFORM Event Display: ED Note Physician Authored Date: [id number] HELENA DOMINGUEZ :1980 Age:41 years Sex:Female Visit Date:02/26/2022 HPI 41-year-old obese female presents for evaluation of diffuse low back pain after she felt increased pain while walking to the bathroom and her legs?gave out?she fell to the ground and was unableto stand secondary to pain. Patient reports she has been dealing with low back pain for just over one week, pain is predominantly down her left leg but also down her right leg as well. Patient reports that she is having difficulty urinating and stooling as when she bears down she has increased back pain.??Patient denies a history of recent trauma, fevers, chills, unexpected weight loss, decreased perineal sensation when toileting, difficulty urinating or incontinence, morning stiffness, IV drug use, alcoholism, recent invasive medical procedures, presyncope, abdominal pain, or dysuria. Smokin pack year history. Anticoagulation: denies anticoagulation and Plavix, denies stents. ?? 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 ?? M/S/F/SocHx notable for: please see HPI; remainder reviewed with patient and in chart.? ROS: Negative constitutional, eye, cardiovascular, pulmonary, GI, , MSK, skin, neurologic, psychiatric, endocrine unless noted in the HPI. ?? Exam HR 96, RR 22, BP 94/45, T 36.5??C, SaO2 95% on room air. Gen: Pleasant, non-toxic appearing, resting??in mild-moderate discomfort. HEENT: NC, AT, PEERL, EOMI. Resp: Clear to auscultation bilaterally.?? Card: RRR?? GI: ND, non-tender to palpation, no palpable midline masses, no palpable midline pulsatility. : No CVA tenderness to percussion bilaterally. MSK: No visible deformities, strength and tone WNL. No??focal??lower thoracic or lumbar spinal TTP, step offs or deformities.??No??paraspinal TTP. Skin: Normal color with no visible lesions. Neuro:??alert and oriented?3, no facial asymmetry, vision and hearing WNL. Straight leg raise test - negative right, negative left. BLE distal sensation intact, 5/5 dorsiflexion / plantarflexion bilaterally.?? Gait: mildly antalgic, normal, narrow based gait, able to walk unassisted and stand on heels and toes with full apparent strength.?? Psych: Mood and affect appropriate.? Labs WBC 8.6, Hb 13.0, sodium one 40, potassium 4.0, BhCG <1, CRP 7.80, ESR 12 Post void residual 40 mLs. UA - no bacteria, negative nitrate, negative leukocyte esterase. ?? MDM Previous chart, nursing note, and vitals reviewed.?? A:??41-year-old obese female presents for evaluation of diffuse low back pain after she felt increased pain while walking to the bathroom and her legs?gave out?she fell to the ground and was unable to stand secondary to pain. ?? DDx: muscle strain, muscle spasm, sciatica, lumbar radiculopathy, cauda equina syndrome, spinal cordabscess, vertebral osteomyelitis, vertebral diskitis, fracture, seronegative spondyloarthropathy, abdominal aortic aneurysm, abdominal aortic dissection, spontaneous hematoma, malignant spinal cord compression. ?? Evaluation:?? * Cauda equina - consider unlikely given normal perineal sensation, lack of incontinence or urinary retention??(post void residual 40 mL).?? * Infection -??doubt infection including??abscess, vertebral osteomyelitis, and diskitis are unlikely as the patient is immunocompetent, and as the patient is afebrile, has the unremarkable history, ROS, normal white blood cell count, normal ESR, and minimally elevated CRP. Additionally, there is no focal tenderness to palpation. * Fracture - doubt given the absence of spinal TTP and lack of prior trauma * Seronegative spondyloarthropathy - unlikely, no further evaluation currently indicated given the absence of morning stiffness and negative RA, psoriatic arthritis, and autoimmune disease history.?? * AAA or Dissection - given the absence of tobacco use, the lack of a palpable pulsatile abdominal mass, abdominal pain, presyncope, an abdominal aortic aneurysm as well as dissection is considered unlikely and further investigation is not currently indicated.?? * Spinal Metastases - given the unremarkable ROS, absence of point spinal tenderness on exam and thelack of discernible neurological deficit, no further testing regarding this etiology is currently indicated. * UTI - UA noninfectious * Consider . Counseled patient regarding natural course of back pain, given return to care instructions, and recommendation for primary care physician follow up. Discharged with . ?? ED Course: patient given 2 mg hydromorphone IM. Significant reduction in pain, however unwilling/unable to attend walking. A further 1 mg IV hydromorphone was given and the patient was able to ambulatewith some encouragement/assistance. Will obtain a CBC, BMP, urinalysis, CRP, ESR, and post void residual for further risk stratification. Laboratory studies obtained, notable for a minimal CRP elevation 7.80 no further abnormalities. Patient able to ambulate with a walker, discharged with limited RX for oxycodone, a walker, instructed to follow up with her PCP on Monday and return to care in the ER if she has new or worsening symptoms. ?? Impression:??back pain. Electronically Signed on 02/26/22 06:37 AM Eduardo Gross MD Emergency department Discharge instructions Eduardo Gross MD: PERFORM Event Display: ED Discharge Information Authored Date: [id number] HELENA DOMINGUEZ :1980 Age:41 years Sex:Female Visit Date:02/26/2022 Discharge Instructions We would like to thank you for allowing us to assist you with your healthcare needs. The following includes patient education materials and information regarding your injury/illness. ?? You were seen at [facility] for evaluation for evaluation of??back pain.??Please read and follow all of the instructions below. ?? Please follow up with your primary care physician??on Monday for repeat evaluation further care as needed. If you have any new or concerning symptoms please return immediately to the emergency department. When calling for follow- up care, please make the office aware that this follow-up is from your recent emergency room visit.? Your care today was limited to identifying and treating emergent medical problems only. Many people have subtle differences in their test results that require follow up with their outpatient physician(s) to correctly determine if this represents a normal variation or concerning abnormality with respect to your specific health.??The care given to you today was limited to identifying and treating emergent medical problems - you need to request a copy of all of your medical records from today's visit and follow up with your outpatient physician(s) to review both today's visit and your overall health. If you have any new symptoms or if you are at all concerned about your health please return immediately to the emergency department. ?? Prescriptions: If you are uninsured or have financial difficulties with filling your prescription(s), you may consider using a free pharmacy discount service such as myQaa (AdsWizz) or panpan (CrossFiber). These services allow you to search for a medication on your phone (or computer) and obtain a coupon that usually has a significant discount from the list veliz at a pharmacy. Your physician does not have a financial relationship with either of these services. You may also wish to speak with your physician to determine if lower cost prescriptions are possible. ?? Oxycodone (Brand Names Roxicodone, OxyContin) ?Take as directed on the prescription for relief of pain.?This drug may cause mild nausea, if so you may take it with a small snack. ?This drug will cause constipation, if you experience a decrease in bowel movements purchase Senna-S (sennasides and docusate) which is available over the counter at pharmacies and take as directed on the bottle. Call your physician if you have not had bowel movemen in two days.?This drug may cause fatigue or dizziness - do not drive or engage in other hazardous activities when using this medication. ?Do no drink alcohol when using this medication.?Store this drug safely, it is a high risk medication if misused.?Tell your doctor or return to the emergency department if your pain persists or worsens. ?? WARNING: Oxycodone has a high risk for abuse and severe, possibly fatal, breathing problems. The risk for harm is higher if you take the wrong dose/strength, or if you take it along with other drugs that might also affect breathing. Be sure you know how to take oxycodone and what other drugs you should avoid taking with it. The risk for breathing problems might also be higher when you start this medication and after a dose increase. Get immediate medical help if you notice unusual slow/shallow breathing. ?? USES: This medication is used to help relieve moderate to severe pain. Oxycodone belongs to a class of drugs known as narcotic (opiate) analgesics. It works in the brain to change how your body feels and responds to pain. ?? SIDE EFFECTS: Tell your doctor right away if any of these unlikely but serious side effects occur: mental/mood changes (such as agitation, confusion, hallucinations), severe stomach/abdominal pain, difficulty urinating. Seek immediate medical attention if any of these rare but serious side effects occur: fainting, seizure, slow/shallow breathing, unusual drowsiness/difficulty waking up. A very serious allergic reaction to this drug is rare. However, seek immediate medical attention if you notice anysymptoms of a serious allergic reaction, including: rash, itching/swelling (especially of the face/to ngue/throat), severe dizziness, trouble breathing. This is not a complete list of possible side effects. If you notice other effects not listed above, contact your doctor or pharmacist. ?? This medication may cause withdrawal reactions, especially if it has been used regularly for a long time or in high doses. In such cases, withdrawal symptoms (such as restlessness, watering eyes, runnynose, nausea, sweating, muscle aches) may occur if you suddenly stop using this medication. To prevent withdrawal reactions, your doctor may reduce your dose gradually. Ask your doctor or pharmacist for more details, and report any withdrawal reactions right away. ?? When this medication is used for a long time, it may not work as well. Talk with your doctor if thismedication stops working well. ?? Along with its benefits, this medication may rarely cause abnormal drug-seeking behavior (addiction). This risk may be increased if you have abused alcohol or drugs in the past. Take this medication exactly as prescribed to lessen the risk of addiction. ?? Back Pain You were evaluated today in the emergency department for your back pain. Your pain is believed to becaused by muscle stains and spasms. This type of pain can be very severe, but it is almost never serious. * You may take ibuprofen 600 mg every 6 to 8 hours as needed for pain. You may take acetaminophen 1000 mg every 8 hours in addition to the ibuprofen for further pain relief. Both of these medications provide very good reduction in pain with minimal side effects. Do not take this ibuprofen if you are or allergic to ibuprofen, Motrin, Aleve, or Naproxen. Do not take acetaminophen if you are allergic to Tylenol or acetaminophen. If you have liver disease you may take up to 2000 mg of acetaminophen per day. * Call your primary care physician to schedule a follow up appointment. Many people have pain that lasts beyond the length of the medications prescribed in the emergency department. You may also benefit from physical therapy, lifestyle changes, and further evaluation.? Please return to the emergency department if you develop any of the following: * Pain on your spine (on the bones) * Have numbness or weakness in your legs * Have problems with bowel or bladder control * Have decreased sensation in your groin or at your anus * Have unexplained weight loss * Have a fever or feel sick in other ways * If you have pain that is so severe that you cannot perform simple tasks?? * If you are otherwise concerned about your health ?? Please follow up with your primary care physician if you still have pain after 4-5 days. ?? What causes low back pain??? In most cases, doctors and nurses do not know what causes low back pain. Pain can happen if you strain a muscle or hurt a tendon or ligament. But if that is the cause of your pain, doctors and nurses have no way of knowing it for sure.? Pain can also happen if you have: * Damaged, bulging, or torn discs * Arthritis affecting the joints of the spine * Bony growths on the vertebrae that crowd nearby nerves * A vertebra out of place * Narrowing in the spinal canal * A tumor or infection (but this is very rare) ?? Should I get an imaging test, like an MRI??? Most people do not need an imaging test. Most cases of back pain go away within 4 to 6 weeks or in even less time. Doctors and nurses usually do not order imaging tests before then unless there are signs of something unusual. * If your doctor or nurse does not order an imaging test, do not worry. He or she can still learn a lot about your pain just from looking you over and talking with you. Plus, treatment can start right away, even without an imaging test. * How can the doctor or nurse tell what is wrong just by talking to me? Your symptoms tell your doctor or nurse a lot about the cause of your pain. If your pain spreads down the back of one thigh, for instance, that could be a sign that one of the nerves that go to your leg is being pinched by a bulging or torn disc. If, on the other hand, your pain goes all the way down both legs, that could be a sign that you have bony growths on your spine. * What can I do to feel better? The best thing you can do is to stay as active as possible even if you are in pain. People with low back pain recover faster if they stay active. Walk as much as you can. If you stopped working because of your pain, try to get back to your normal routine soon. But do not overdo it. * When you start to feel better, ask your doctor or nurse about exercises that can help strengthen your back. These exercises can help you get better faster and might make it less likely that you will have pain again. ?? How is back pain treated??? A small number of people end up needing surgery to treat back pain. But most people do well with simpler treatments, such as: * Physical therapy to teach you special exercises and stretches * Injections of medicines that numb the back or reduce swelling * What can I do to keep from getting back pain again? Stay active, maintain a healthy body weight and learn exercises that help strengthen and stretch your back. Learn to lift using your legs instead of your back. And avoid sitting or standing in the same position for too long. ?? You make take over the counter Acetaminophen (Tylenol) and Ibuprofen (Motrin or Aleve) as directed below for relief of pain.?? * You can take these medications at the same time or on separate schedules.?? * Do not take for more than 10 days. * Do not take with alcohol or other acetaminophen containing medications.?? * This medication may cause a mildly upset stomach, if so take it with a small snack. Stop taking itif you have persistent abdominal pain, heartburn, or any stomach pain. Do not take this medication if you have known ulcers.?? * Please read the warnings at the end of this document regarding these medications.? Ibuprofen (Brand Names: Motrin, Advil) ?Take 600 mg with a glass of water every 6 to 8 hours as needed for pain or fever. ?Do not take for more than 10 days.?This medication may cause a mildly upset stomach, if so take it with a small snack. Stop taking it if you have persistent abdominal pain, heartburn, or any stomach pain. Do not take this medicationif you have known ulcers.?Do not take with Naproxen Sodium (brand name: Aleve) or other non-steroidal antiiflammatory medications that you may be prescribed (e.g. Diclofenac, Etodolac, Indomethicin) ?? WARNING: This drug may infrequently cause serious (rarely fatal) bleeding from the stomach or intestines. Also, related drugs rarely have caused blood clots to form, resulting in heart attacks and strokes. This medication might also rarely cause similar problems. Talk to your doctor or pharmacist about the benefits and risks of treatment, as well as other possible medication choices. If you notice any of the following rare but very serious side effects, stop taking ibuprofen and seek immediate medical attention: black stools, persistent stomach/abdominal pain, vomit that looks like coffee grounds, chest pain, weakness on one side of the body, sudden vision changes, slurred speech.? SIDE EFFECTS: Upset stomach, nausea, vomiting, heartburn, headache, diarrhea, constipation, drowsiness, and dizziness may occur. If any of these effects persist or worsen, notify your doctor or pharmacist promptly. If your doctor has directed you to use this medication, remember that he or she has judged that the benefit to you is greater than the risk of side effects. Many people using this medication do not have serious side effects. Tell your doctor immediately if any of these serious side effects occur: stomach pain, swelling of the hands or feet, sudden or unexplained weight gain, ringing in the ears (tinnitus). Tell your doctor immediately if any of these unlikely but serious side effects occur: vision changes, rapid or pounding heartbeat, easy bruising or bleeding, difficult/painful swallowing. Tell your doctor immediately if any of these highly unlikely but very serious side effects occur: change in amount of urine, severe headache, very stiff neck, mental/mood changes, persistent sore throat or fever. This drug may rarely cause serious (possibly fatal) liver disease. If you notice anyof the following highly unlikely but very serious side effects, stop taking ibuprofen and consult your doctor or pharmacist immediately: yellowing eyes and skin, dark urine, unusual/extreme tiredness. An allergic reaction to this drug is unlikely, but seek immediate medical attention if it occurs. Symp toms of an allergic reaction include: rash, itching/swelling (especially of the face/tongue/throat),severe dizziness, trouble breathing. This is not a complete list of possible side effects.? DRUG INTERACTIONS: Your healthcare professionals (e.g., doctor or pharmacist) may already be aware of any possible drug interactions and may be monitoring you for it. Do not start, stop or change the dosage of any medicine before checking with them first. This drug should not be used with the following medications because very serious interactions may occur: cidofovir, ketorolac. If you are currentlyusing any of these medications listed above, tell your doctor or pharmacist before starting ibuprofen. Before using this medication, tell your doctor or pharmacist of all prescription and nonprescription/herbal products you may use, especially of: anti-platelet drugs (e.g., cilostazol, clopidogrel), or al bisphosphonates (e.g., alendronate), other medications for arthritis (e.g., aspirin, methotrexate), blood thinners (e.g., enoxaparin, heparin, warfarin), corticosteroids (e.g., prednisone), cyclosporine, desmopressin, high blood pressure drugs (including CHING inhibitors such as captopril, angiotensin II receptor antagonists such as losartan, and beta-blockers such as metoprolol), lithium, pemetrexed, water pills (diuretics such as furosemide, hydrochlorothiazide, triamterene). Check all prescription and nonprescription medicine labels carefully for other pain/fever drugs (NSAIDs such as aspirin, celecoxib, naproxen). These drugs are similar to ibuprofen, so taking one of these drugs while also taking ibuprofen may increase your risk of side effects. Consult your doctor or pharmacist for more details. However, if your doctor has prescribed low doses of aspirin to prevent heart attack or stroke (usually at dosages of 81-325 milligrams a day), you should continue to take the aspirin. Daily use of ibuprofen may decrease aspirin's ability to prevent heart attack/stroke. Talk to your doctor about using a different medication (e.g., acetaminophen) to treat pain/fever. If you must take ibuprofen, talk to your doctor about possibly taking immediate-release aspirin (not enteric-coated) while also taking the ibuprofen dose apart from your aspirin dose. Do not increase your daily dose of aspirin or change the way you take aspirin/other medications without your doctor's approval. This document does not contain all possible interactions. Therefore, before using this product, tell your doctor or pharmacist of all the products you use. Keep a list of all your medications with you, and share the list with your doctor and pharmacist. ?? Acetaminophen (Tylenol) ?Please take 1,000 mg every 6 hours as needed for pain.?Do no use with alcohol or other acetaminophen??containing medications.? SIDE EFFECTS: This drug usually has no side effects. If you do not have liver problems, the maximum dose of acetaminophen for adults is 4 grams per day (4000 milligrams). Taking more than the maximum daily amount may cause serious (possibly fatal) liver damage. Get medical help right away if you have any of the following symptoms of liver damage: persistent nausea/vomiting, extreme tiredness, stomach/abdominal pain, yellowing eyes/skin, dark urine. If you have liver problems, consult your doctor or pharmacist for a safe dosage of this medication. A very serious allergic reaction to this drug is rare. However, get medical help right away if you notice any symptoms of a serious allergic reaction, including: rash, itching/swelling (especially of the face/tongue/throat), severe dizziness, trouble breathing. This is not a complete list of possible side effects. If you notice other effects not listed above, contact your doctor or pharmacist. ? Discharge Vitals Temperature??(Temporal Artery) 97.7 ??F (36.5 ??C) Heart Rate??(Peripheral) 90 Respiratory Rate?? 22 Blood Pressure?? 126/86?? Height?? 58.66 in (149.000 cm) Weight??(Estimated) 167.58 lb (76.00 kg) Allergies varicella virus vaccine??(Skin rash) SHELLFISH DERIVED acetaminophen-hydrocodone acetaminophen-oxycodone cephalosporins penicillins You were treated today on an emergency [...] Much When Why Instructions Next Dose New oxyCODONE (oxyCODONE 5 mg oral capsule) See instructions 1-2 cap Oral every 6 hr, As needed for as needed for pain ?? Pickup at [facility] Unchanged albuterol (Albuterol (Eqv-ProAir HFA) 90 mcg/ inh inhalation aerosol) See instructions . use with spacer chamber ?? Unchanged cyclobenzaprine (cyclobenzaprine 5 mg oral tablet) 1 tab Oral (given by mouth) 2 times a day as needed for as needed for muscle spasm Lumbosacral radiculopathy Duration: 10 Days Unchanged diazePAM (Valium 2 mg oral tablet) [...] for as needed for wheezing Moderate asthma Unchanged methylPREDNISolone (Medrol 4 mg oral tablet) 1 tab Oral (given by mouth) Every day Lumbosacral radiculopathy Duration: 10 Days Pharmacy Information [facility] #[id number]: [address] [id number] [phone] Tests Performed Medications and Immunizations Administered Given Dilaudid, 2 mg, IM Dilaudid, 1 mg, Slow IV Push Lab Test Name Test Result Date/Time WBC 8.6 x10^3/mcL 02/26/2022 04:29 EST RBC 4.3 x10^6/mcL 02/26/2022 04:29 EST Hgb 13.0 g/dL 02/26/2022 04:29 EST Hct 39.0 % 02/26/2022 04:29 EST MCV 91.5 02/26/2022 04:29 EST MCH 30.5 pg 02/26/2022 04:29 EST MCHC 33.3 g/dL 02/26/2022 04:29 EST RDW-CV 12.7 % 02/26/2022 04:29 EST Platelets 330 x10^3/mcL 02/26/2022 04:29 EST Neutro Auto 64.2 % 02/26/2022 04:29 EST Lymph Auto 27.3 % 02/26/2022 04:29 EST [place] Auto 6.9 % 02/26/2022 04:29 EST Eos, Auto 0.9 % 02/26/2022 04:29 EST Basophil Auto 0.5 % 02/26/2022 04:29 EST Imm Gran Auto 0.2 % 02/26/2022 04:29 EST Neutro Absolute 5.5 x10^3/mcL 02/26/2022 04:29 EST ESR, Westergren 12 mm/hr 02/26/2022 04:29 EST Sodium Level 140 mmol/L 02/26/2022 04:29 EST Potassium Level 4.0 mmol/L 02/26/2022 04:29 EST Chloride Level 106 mmol/L 02/26/2022 04:29 EST CO2 24 mmol/L 02/26/2022 04:29 EST BUN 26 mg/dL 02/26/2022 04:29 EST Glucose Level 175 mg/dL 02/26/2022 04:29 EST Creatinine Level 0.59 mg/dL 02/26/2022 04:29 EST eGFR AA 117 02/26/2022 04:29 EST eGFR Non-AA 117 02/26/2022 04:29 EST Calcium Level 8.3 mg/dL 02/26/2022 04:29 EST CRP High Sens 7.80 mg/L 02/26/2022 04:29 EST Beta hCG Qnt <1 mIntlUnit/mL 02/26/2022 04:29 EST UA Color YELLOW. 02/26/2022 05:08 EST UA Appear CLEAR. 02/26/2022 05:08 EST UA Glucose 1+ 02/26/2022 05:08 EST UA Bili NEGATIVE 02/26/2022 05:08 EST UA Ketones NEGATIVE 02/26/2022 05:08 EST UA Spec Grav >=1.030 02/26/2022 05:08 EST UA Blood NEGATIVE 02/26/2022 05:08 EST UA pH 5.5 02/26/2022 05:08 EST UA Protein NEGATIVE 02/26/2022 05:08 EST UA Urobilinogen 0.2 Uro 02/26/2022 05:08 EST UA Nitrite NEGATIVE 02/26/2022 05:08 EST UA Leuk Est NEGATIVE 02/26/2022 05:08 EST UA Culture Ind?. Not Applicable 02/26/2022 05:08 EST UA WBC 0-3 02/26/2022 05:08 EST UA RBC 0-2 02/26/2022 05:08 EST UA Squam Epithelial Few 02/26/2022 05:08 EST UA Mucous Few 02/26/2022 05:08 EST UA Bacteria None Seen 02/26/2022 05:08 EST Patient/Senior Architectural Designer Signature Patient Name:HELENA DOMINGUEZ I have received this information and my questions have been answered. Patient/Senior Architectural Designer Name: Patient/Senior Architectural Designer Signature: Relationship to Patient: Witness Name/Signature: Date: Electronically Signed on: 02/26/2022 06:40 ESTSigned by:KRISTIAN Discharge summary Rasheeda Christian: PERFORM Event Display: Discharge Note Authored Date: Rasheeda Christian: PERFORM Event Display: Discharge Note Authored Date: Diagnosis: Back pain Comment: Electronically Signed on 02/26/22 07:13 AM Rasheeda Christian
--- NOTE | 2022-03-02 08:08 | W.ED.GENAD ---
Discharge Plan Disposition Patient Disposition: Home Condition: Improving Discharge Details Clinical Impression: Herniation of intervertebral disc between L5 and S1 Primary Care Provider: CORDELIA MCKENZIE ED Provider: Lucio Miranda Home Meds and New Rx's Prescriptions: New cyclobenzaprine 10 mg tablet 10 mg PO TID PRNQty: 10 0RF oxycodone-acetaminophen [Percocet] 7.5-325 mg tablet 1 tab PO Q8H PRNQty: 8 0RF Continued insulin aspart U-100 [Novolog FlexPen U-100 Insulin] 100 unit/mL (3 mL) Insulin Pen See Rx Instructions .ROUTE .COMPLEX Rx Instructions: sliding scale diazepam [Valium] 5 mg tablet 5 mg PO BID PRN (Reason: muscle spasm) Qty: 14 0RF methylprednisolone 4 mg tablet 1 tab PO DAILY Label Comments: TAKE 1 TABLET BY MOUTH DAILY FOR 10 DAYS cyclobenzaprine 5 mg tablet 1 tab PO BID Label Comments: TAKE 1 TABLET BY MOUTH TWICE DAILY FOR 10 DAYS NEEDED FOR MUSCLE SPASM levalbuterol tartrate 45 mcg/actuation Hfa Aerosol Inhaler 1 puff INHALATION Q4H PRN insulin degludec [Tresiba FlexTouch U-200] 200 unit/mL (3 mL) insulin pen 40 unit SUBCUT DAILY Discharge Instructions Instructions: Lumbar Disc Herniation (ED) Additional Instructions: Work-up in the ER reveals what appears to be a left sided L5-S1 disc herniation. Cyclobenzaprine and Percocet as directed, both of these medications may cause drowsiness, Percocet may cause constipation, be sure to have plenty of fluid and take [id number]-[id number] stool softener. [id number]-icyakyu Lidoderm patches as directed. Cool and/or warm compresses every 2 hours for 20 minutes. Gentle stretching as tolerated. Please watch for new or worsening symptoms and return to the ER for any concerns. I have personally spoken with your primary care provider today regarding your visit. Please contact their office later today or tomorrow to discuss your ER visit, ongoing symptoms, need for outpatient reevaluation. I also recommend contacting your back specialist in [facility] to see if you can get on the call cancellation list to be seen sooner if possible. Medical Decision Making This is a 41-year-old female, past medical history of type 1 diabetes, reports chronic progressive back pain but worse over the past couple of weeks, legs giving out, causing her to fall. Reports over the past 12 hours a episode of urinary incontinence. She denies recent illness, trauma, IV drug use. Patient was seen in our ER on 02-23, normal CT of abdomen pelvis at that time. Subsequently seen at [facility] ER on 02-26, had MRI at that time. I was able to review these notes. Work-up at that time revealed a CRP elevated at 7.80. She was given generous analgesia and eventually her pain was somewhat tolerable. MRI obtained and revealed a nerve root compression at L5-S1. Discharged with prescription for cyclobenzaprine, Medrol Dosepak, now using a walker. Scheduled to be seen by her PCP. Also being referred down to spinal surgery at [facility]. Clinically she appears anxious, tearful, screams on examination. Pulse of 118. She is afebrile. Differential at this time is broad, includes but not excluded to acute on chronic back pain, cauda equina syndrome, spinal abscess, discitis, psychosomatic component, etc. Plan is to obtain IV access, give IV Phenergan, Norflex, Toradol, obtain routine screening laboratory values including inflammatory markers. At the moment patient is unable to tolerate a rectal examination. Will attempt again once medications have been administered. I also contacted radiology, able to obtain MRI with and without lumbar spine at 11:15 AM. Laboratory values reveal mild nonspecific leukocytosis of 12.22, difficult to know if this is secondary to infection, steroid use, stress reaction, etc. Electrolytes unremarkable. Creatinine 0.7 with a GFR of 112.05. Lipase 54. Awaiting inflammatory markers and urinalysis. Will obtain postvoid bladder scan as well. Patient was helped by her significant other to the commode. Post void residual revealed 48 cc ESR normal at 18. CRP slightly elevated 0.78. Urinalysis reveals glucose in her urine but no evidence of infection or hematuria. Discussed work-up thus far with patient and significant other. She is agreeable to awaiting an MRI at 1115. Patient reports that she lives at home alone and does not feel as though she can safely go home as she cannot move or stand safely. Plan to provide 1 mg IV Dilaudid while patient is awaiting MRI imaging. Discussed rectal exam once again, at this time patient defers Patient responded well to medication, moderate improvement of her pain. Awaiting MRI. I was able to speak with JUTE B[employer] C[employer]TING MACHINE OPERATOR Vishnu who reports that he saw the patient earlier in the week, trialed her on gabapentin and short-term oxycodone. He tells me that he did not send the patient here for admission which is different than what the patient explained to me upon her initial presentation. He states that he is attempting to get the patient routine follow-up at [facility] spine in the next week or so. He does question her overall compliance with of her medications. He also reports that she tends to have a difficult time this time of year regarding multiple deaths of her family members. Patient is about to go to MRI. I reevaluated her and she reports her pain is now tolerable 7 out of 10. She feels as though if her pain is like this she could likely go home. Plan to provide additional dose of Dilaudid prior to MRI for ambulation-transfer to the MRI machine. Heart rate is now 102. She appears well, nontoxic, no longer screaming, moaning, crying. Patient returned from MRI and reports that she was able to help transfer from the stretcher over to the MRI machine. Patient reports significant improvement of her overall symptoms when compared to her initial presentation. She is no longer crying, moaning, anxious. She tells me that this all began worse over the past 2 weeks after trying a new workout regimen. Patient denies true incontinence but does report that she is in so much pain that she cannot get up quickly enough to get to the restroom in time before she has an accident. She also reports that after a severe coughing fit, increased pain, she did soil her underwear slightly. She does tell me that her primary concern is that of pain control. She has no more tablets that were prescribed by her PCP and cannot wait until her scheduled outpatient spine appointment at [facility] in her current discomfort. She is also concerned that her pain will not be controlled adequately from the 5 mg tablets that were prescribed by her PCP, MRI unchanged. Discussed MRI results with patient and significant other. Patient reports that she is overall feeling improvement and would prefer to be discharged home with adequate pain control versus admission for pain control. She does have outpatient PCP and back follow-up at [facility]. Patient attempted to use the walker but reports increased pain. Also reports spasming. Patient to be given 10 IV Valium and 1 mg IV Dilaudid. Upon reevaluation patient reports significant improvement of her symptoms. She is able to transfer from the stretcher to a walker and ambulate approximately 6 steps steadily and safely. Patient states that she does not want to walk any further than that. She was then able to transfer to a wheelchair and be brought to the restroom with assistance through her significant other. Patient states that she has both a walker and a wheelchair at home. She would prefer to be discharged home as opposed to being admitted for pain control here. She states that home resources between home health, Meals on Wheels, her parents, her significant other, etc. should be sufficient and she feels safe with this disposition. I will provide a short-term analgesia as well as a muscle relaxer. Standard discharge and return precautions were provided. Patient understands, is agreeable to this plan, and has no additional questions or concerns upon discharge. This documentation was generated using [employer] system, please disregard any oddities of phrase or misspellings. Medical Records Medical records reviewed: Yes I reviewed the patient's medical records. Imaging Data Radiologic Study: Attestation: I personally reviewed and interpreted this imaging study as follows: Imaging: MRI Radiologist's impression: Exam(s) MR LUMBAR SPINE WO/W EXAM: MR LUMBAR SPINE WO/W CLINICAL HISTORY: pain,weakness, incontinence TECHNIQUE: Multiplanar multisequence MRI of the Lumbar Spine was performed. CONTRAST MATERIAL: IV Contrast: 17 mL of Dotarem contrast administered. COMPARISON: CT CT RENAL COLIC WO from 02/23/2022 MR MR LS SPINE WO CONTRAST from 02/25/2022 FINDINGS: Bones: The last intervertebral disc space is designated the L5/S1 level for the numbering purpose of this examination. The vertebral body heights are well maintained. Alignment is satisfactory. The signal characteristics are unremarkable. Small hemangioma L2 vertebral body Cord: The conus tip ends at the T12 level. It is of normal size and signal intensity. T12-L1: No disc herniations or bulges are present. L1-2: No disc herniations or bulges are present. L2-3: No disc herniations or bulges are present. L3-4: No disc herniations or bulges are present. L4-5: No disc herniations or bulges are present. Mild ligamentous hypertrophy. L5-S1: There is a stable left-sided disc protrusion with apparent impingement on left S1 nerve root. Soft tissues: The visualized SI joints and sacrum are well maintained. The paraspinal soft tissues are unremarkable. There is no evidence of suspicious enhancement. IMPRESSION: No change in the left-sided L5-S1 disc herniation. No abnormal enhancement in the spine, discs or soft tissues. Lab Data Lab results reviewed: Yes I reviewed the patient's lab results. Labs: Laboratory Tests Range/Units 03/02/22 03/02/22 03/02/22 08:31 08:31 08:31 WBC (4.4-10.8) 10^3/uL 12.22 H RBC (3.93-5.22) 10^6/uL 5.11 Hgb (11.2-15.7) g/dL 15.4 Hct (36.0-46.0) % 47.0 H MCV (80-95) fL 92 MCH (27.0-33.0) pg 30.1 MCHC (32.0-36.0) % 32.8 RDW (11.7-14.6) % 12.3 Plt Count (130-400) 10^3/uL 402 H MPV (8.0-11.0) fL 9.7 Immature Gran % 0.4 Neutrophils % 78.3 Lymphocytes % 12.8 Monocytes % 6.1 Eosinophils % 1.9 Basophils % 0.5 Nucleated RBC % (0.0-0.3) % 0.0 Absolute Neutrophils (1.2-6.7) 10^3/uL 9.57 H Absolute Lymphocytes (1.2-3.4) 10^3/uL 1.56 Absolute Monocytes (0.1-0.8) 10^3/uL 0.75 Absolute Eosinophils (0.0-0.7) 10^3/uL 0.23 Absolute Basophils (0.0-0.2) 10^3/uL 0.06 ESR (0-20) mm/hr Sodium (136-145) mmol/L 135 L Potassium (3.5-5.1) mmol/L 4.1 Chloride (98-107) mmol/L 100 Carbon Dioxide (21.0-32.0) mmol/L 26.5 Anion Gap (3-11) mmol/L 8.5 BUN (7-18) mg/dL 22 H Creatinine (0.55-1.02) mg/dL 0.7 Est GFR (CKD-EPI 2020) (mL/min/1.73m2) 112.05 Glucose (74-106) mg/dL 279 H Calcium (8.5-10.1) mg/dL 8.5 Total Bilirubin (0.2-1.0) mg/dL 0.4 AST (15-37) U/L 14 L ALT (14-59) U/L 22 Alkaline Phosphatase (46-116) U/L 122 H C-Reactive Protein (0.0-0.3) mg/dL 0.78 H Total Protein (6.4-8.2) g/dL 7.5 Albumin (3.4-5.0) g/dL 3.6 Lipase (73-393) U/L 54 Urine Color (Yellow) Urine Clarity (Clear) Urine pH (5-8) Ur Specific [place] (1.005-1.025) Urine Protein (Negative) mg/dL Urine Ketones (Negative) mg/dL Urine Blood (Negative) Urine Nitrite (Negative) Urine Bilirubin (Negative) Urine Urobilinogen (Up TO 0.2) EU/dL Ur Leukocyte Esterase (Negative) Urine Glucose (Negative) mg/dL Range/Units 03/02/22 03/02/22 08:31 09:10 WBC (4.4-10.8) 10^3/uL RBC (3.93-5.22) 10^6/uL Hgb (11.2-15.7) g/dL Hct (36.0-46.0) % MCV (80-95) fL MCH (27.0-33.0) pg MCHC (32.0-36.0) % RDW (11.7-14.6) % Plt Count (130-400) 10^3/uL MPV (8.0-11.0) fL Immature Gran % Neutrophils % Lymphocytes % Monocytes % Eosinophils % Basophils % Nucleated RBC % (0.0-0.3) % Absolute Neutrophils (1.2-6.7) 10^3/uL Absolute Lymphocytes (1.2-3.4) 10^3/uL Absolute Monocytes (0.1-0.8) 10^3/uL Absolute Eosinophils (0.0-0.7) 10^3/uL Absolute Basophils (0.0-0.2) 10^3/uL ESR (0-20) mm/hr 18 Sodium (136-145) mmol/L Potassium (3.5-5.1) mmol/L Chloride (98-107) mmol/L Carbon Dioxide (21.0-32.0) mmol/L Anion Gap (3-11) mmol/L BUN (7-18) mg/dL Creatinine (0.55-1.02) mg/dL Est GFR (CKD-EPI 2020) (mL/min/1.73m2) Glucose (74-106) mg/dL Calcium (8.5-10.1) mg/dL Total Bilirubin (0.2-1.0) mg/dL AST (15-37) U/L ALT (14-59) U/L Alkaline Phosphatase (46-116) U/L C-Reactive Protein (0.0-0.3) mg/dL Total Protein (6.4-8.2) g/dL Albumin (3.4-5.0) g/dL Lipase (73-393) U/L Urine Color (Yellow) Yellow Urine Clarity (Clear) Clear Urine pH (5-8) 6.0 Ur Specific [place] (1.005-1.025) >= 1.030 H Urine Protein (Negative) mg/dL Negative Urine Ketones (Negative) mg/dL Negative Urine Blood (Negative) Negative Urine Nitrite (Negative) Negative Urine Bilirubin (Negative) Negative Urine Urobilinogen (Up TO 0.2) EU/dL 0.2 Ur Leukocyte Esterase (Negative) Negative Urine Glucose (Negative) mg/dL 500 H HPI General Mode of arrival: ambulatory. Date/Time Provider Initiated Documentation: 03/02/22 07:38. Limitations to Documentation: no limitations. Information obtained by: patient and family. HPI Narrative: This is a 41-year-old female, past medical history of diabetes, chronic back pain, reporting exacerbation of her back pain. Patient states that she has had back pain for several years, occasionally her is so severe that her legs just give out and she falls. 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 Patient reports that she had an MRI at [facility] and was told that she has a broken back pinching a nerve. Patient states that she was seen by her PCP, put on medications but unfortunately she does not know the name of the medications. Reports that one of them is only 5 mg, not strong enough to control her pain, and was told to come to the ER for admission. Patient denies recent illness or trauma, fever, chest pain, shortness of breath, abdominal pain, vomiting. Patient reports that the pain makes her feel nauseous, did not eat dinner last night or have breakfast this morning, has not had her insulin over the past 24 hours. Patient reports the pain is severe worse with movement, admits to occasional paresthesias in her legs, but denies any true numbness. She reports that her legs feel weak. She also reports that secondary to the pain she cannot move very quickly, sometimes unsure if she needs to urinate or not, cannot get to the bathroom fast enough and did have an episode of incontinence in her pants yesterday. She denies any drug use. Related Data Home Medications Medication Instructions Recorded Confirmed diazepam 5 mg tablet (Valium) 5 mg PO BID PRN muscle spasm #14 02/23/22 03/02/22 tabs insulin aspart U-100 100 unit/mL See Rx Instructions .Route .COMPLEX 02/23/22 03/02/22 (3 mL) subcutaneous pen (Novolog FlexPen U-100 Insulin aspart) cyclobenzaprine 10 mg tablet 10 mg PO TID PRN #10 tabs 03/02/22 cyclobenzaprine 5 mg tablet 1 tab PO BID 03/02/22 03/02/22 insulin degludec 200 unit/mL (3 40 unit subcut DAILY 03/02/22 03/02/22 mL) subcutaneous pen (Tresiba FlexTouch U-200 insulin) levalbuterol tartrate 45 1 puff inhalation Q4H PRN 03/02/22 03/02/22 mcg/actuation aerosol inhaler methylprednisolone 4 mg tablet 1 tab PO DAILY 03/02/22 03/02/22 oxycodone-acetaminophen 7.5 mg-325 1 tab PO Q8H PRN #8 tabs 03/02/22 mg tablet (Percocet) Previous Rx's Medication Instructions Recorded diazepam 5 mg tablet (Valium) 5 mg PO BID PRN muscle spasm #14 02/23/22 tabs cyclobenzaprine 10 mg tablet 10 mg PO TID PRN #10 tabs 03/02/22 oxycodone-acetaminophen 7.5 mg-325 1 tab PO Q8H PRN #8 tabs 03/02/22 mg tablet (Percocet) Allergies Allergy/AdvReac Type Severity Reaction Status Date / Time Penicillins Allergy Severe Anaphylaxis Unverified 03/02/22 08:13 Cephalosporins Allergy Unverified 03/02/22 08:13 iodine Allergy Unverified 03/02/22 08:13 shellfish derived Allergy Unverified 03/02/22 08:13 General Stated Complaint: Nk/Back Pain ARUN: 3 Review of Systems Constitutional Constitutional: Denies fatigue, Denies fever(s) and Reports weakness ENT Ears, Nose, Mouth, and Throat: Denies neck pain Cardiovascular Cardiovascular: Denies chest pain and Denies dyspnea Respiratory Respiratory: Denies cough and Denies dyspnea Gastrointestinal Gastrointestinal: Denies abdominal pain, Denies fecal incontinence, Reports nausea and Denies vomiting Genitourinary Genitourinary: Denies dysuria, Reports urinary incontinence and Denies vaginal discharge Musculoskeletal Musculoskeletal: Reports back pain, Denies neck pain, Denies numbness and Reports tingling Integumentary/Breasts Skin/Breast: Denies rash Neurologic Neurologic: Denies numbness, Reports tingling and Reports weakness Endocrine Endocrine: Denies fatigue Hematologic/Lymphatic Hematologic/Lymphatic: Denies easy bleeding and Denies easy bruising PFSH All Active Problems (Updated 03/02/22 @ 14:20 by BILL Perez) Pain in left lumbar region of back (Acute) Lumbar paraspinal muscle spasm (Acute) Herniation of intervertebral disc between L5 and S1 (Acute) Insulin dependent type 1 diabetes mellitus (Acute) COPD (chronic obstructive pulmonary disease) (Chronic) Social History Smoking/Tobacco Use Status: Never Smoking risk assessment performed?: Yes Alcohol Intake: never Substance use type: does not use Do you feel safe at home: Yes Do you feel safe in your relationship?: Yes Additional Social history: boyfriend at bedside Exam Const General: cooperative and anxious (Tearful, yelling out in pain) Orientation: alert, awake and oriented x3 HENMT Head: normal to inspection, normocephalic and atraumatic Face and sinus: normal facial exam Mouth: moist mucous membranes Eyes Conjunctivae: conjunctivae normal Neck Neck: normal visual inspection, full ROM, no meningeal signs, trachea midline and supple Resp Effort & Inspection: normal respiratory effort and able to speak in complete sentences Auscultation: clear to auscultation bilaterally Cardio Rate: tachycardic (118) Rhythm: regular rhythm GI Inspection: obesity Palpation: soft, not firm, no guarding and nontender Auscultation: normal bowel sounds Back/Spine/Pelvis Back: no CVA tenderness and back tenderness (Diffuse mild lumbar) Other: No obvious spasm, midline point tenderness, step-off. No erythema, ecchymosis. Skin General skin exam: no rashes or lesions noted Neuro General: patient alert, patient awake and patient oriented x3 Cognition: normal cognition Speech: speech normal Sensory Exam: no sensory deficits noted Extrem General: capillary refill normal Other: Patient is lying on her right side, using her upper extremities freely without difficulty. Patient is unable-declines to roll over onto her back. Sensation of her legs appears to be intact, normal patellar and Achilles reflexes. Knees are held in a slightly flexed position, when I passively extend her legs she screams in discomfort and reports that I am causing her pain in her legs. Unable to palpate her pedal pulses which appear normal bilaterally. She did not scream when I palpated her pulses originally but then when I told her I was going to palpate her pulses and she felt me palpate her feet and she began screaming. Extremely difficult examination. Psych Appearance: grossly normal Mental Status: mental status grossly normal Course Vital Signs Vital signs: Vital Signs Temperature 36.7 C 03/02/22 07:43 Pulse 120 H 03/02/22 07:43 Respiratory Rate 20 03/02/22 07:43 Blood Pressure 120/60 03/02/22 07:43 Pulse Oximetry 100 03/02/22 07:43 Temperature 36.7 C 03/02/22 07:43 Temperature Source Skin 03/02/22 07:43 Pulse 120 H 03/02/22 07:43 Respiratory Rate 20 03/02/22 07:43 Respiratory Effort Non-Labored 03/02/22 07:52 Blood Pressure 120/60 03/02/22 07:43 Blood Pressure Position Right Lateral 03/02/22 07:43 Pulse Oximetry 100 03/02/22 07:43 Oxygen Delivery Method Room Air 03/02/22 07:43 Oxygen Flow Rate 0 03/02/22 07:43 Pain Level 10 03/02/22 07:55
[2022-03-02] MEDS: Orphenadrine 60 MG/2 ML VIAL IVP (08:40)
[2022-03-02] MEDS: Ketorolac 30 MG/ML VIAL IVP (08:41)
[2022-03-02 08:42] LABS: Abs Immature Grans 0.05 10^3/uL (0.0-0.06); Absolute Basophil Count 0.06 10^3/uL (0.0-0.2); Absolute Eosinophil Count 0.23 10^3/uL (0.0-0.7); Absolute Monocyte Count 0.75 10^3/uL (0.1-0.8); Basophils % 0.5; Eosinophils % 1.9; HGB 15.4 g/dL (11.2-15.7); Immature Grans % 0.4; Lymphocytes % 12.8; MCH 30.1 pg (27.0-33.0); MCHC 32.8 % (32.0-36.0); MCV 92 fL (80-95); MPV 9.7 fL (8.0-11.0); Monocytes % 6.1; Neutrophils % 78.3; Platelet Count 402 10^3/uL (130-400); RBC 5.11 10^6/uL (3.93-5.22); RDW 12.3 % (11.7-14.6); RDW-SD 41.7 fL; WBC 12.22 10^3/uL (4.4-10.8)
[2022-03-02 08:55] LABS: Absolute Lymphocyte Count 1.56 10^3/uL (1.2-3.4); Absolute Neutrophil Count 9.57 10^3/uL (1.2-6.7)
[2022-03-02 08:58] LABS: ALT 22 U/L (14-59); AST 14 U/L (15-37); Albumin 3.6 g/dL (3.4-5.0); Alkaline Phosphatase 122 U/L (46-116); Anion Gap 8.5 mmol/L (3-11); BUN 22 mg/dL (7-18); Bilirubin, Total 0.4 mg/dL (0.2-1.0); CO2 26.5 mmol/L (21.0-32.0); CREATININE 0.7 mg/dL (0.55-1.02); Calcium 8.5 mg/dL (8.5-10.1); Chloride 100 mmol/L (98-107); Estimated GFR 112.05 (mL/min/1.73m2); Glucose 279 mg/dL (74-106); Lipase 54 U/L (73-393); Potassium 4.1 mmol/L (3.5-5.1); Sodium 135 mmol/L (136-145); Total Protein 7.5 g/dL (6.4-8.2)
--- NOTE | 2022-03-02 09:00 | DI.MRI_ITS ---
Exam(s) MR LUMBAR SPINE WO/W EXAM: MR LUMBAR SPINE WO/W CLINICAL HISTORY: pain,weakness, incontinence TECHNIQUE: Multiplanar multisequence MRI of the Lumbar Spine was performed. CONTRAST MATERIAL: IV Contrast: 17 mL of Dotarem contrast administered. COMPARISON: CT CT RENAL COLIC WO from 02/23/2022 MR MR LS SPINE WO CONTRAST from 02/25/2022 FINDINGS: Bones: The last intervertebral disc space is designated the L5/S1 level for the numbering purpose of this examination. The vertebral body heights are well maintained. Alignment is satisfactory. The sig nal characteristics are unremarkable. Small hemangioma L2 vertebral body Cord: The conus tip ends at the T12 level. It is of normal size and signal intensity. T12-L1: No disc herniations or bulges are present. L1-2: No disc herniations or bulges are present. L2-3: No disc herniations or bulges are present. L3-4: No disc herniations or bulges are present. L4-5: No disc herniations or bulges are present. Mild ligamentous hypertrophy. L5-S1: There is a stable left-sided disc protrusion with apparent impingement on left S1 nerve root. Soft tissues: The visualized SI joints and sacrum are well maintained. The paraspinal soft tissues ar e unremarkable. There is no evidence of suspicious enhancement. IMPRESSION: No change in the left-sided L5-S1 disc herniation. No abnormal enhancement in the spine, discs or soft tissues. DATA REPOSITORY:
[2022-03-02 09:09] LABS: ESR 18 mm/hr (0-20)
[2022-03-02 09:10] LABS: C-Reactive Protein 0.78 mg/dL (0.0-0.3)
[2022-03-02 09:24] LABS: Bilirubin Negative (Negative); Blood Negative (Negative); Clarity Clear (Clear); Glucose 500 mg/dL (Negative); Ketones Negative (Negative); Leukocyte Esterase Negative (Negative); Nitrite Negative (Negative); Specific Gravity >= 1.030 (1.005-1.025); Urobilinogen 0.2 EU/dL (Up TO 0.2)
[2022-03-02 09:40] LABS: *AMPHETAMINES SCREEN URINE Negative (Negative); *BARBITURATES SCREEN URINE Negative (Negative); *BENZODIAZEPINES SCREEN URINE Positive (Negative); Cannabinoids THC Positive (Negative); Cocaine Screen,Urine Negative (Negative); METHADONE URINE SCREEN Negative (Negative); OPIATES URINE SCREEN Negative (Negative)
[2022-03-02 09:41] LABS: Tricyclic Antidepressants Positive (Negative)
[2022-03-02] MEDS: HYDROmorphone 2 MG/ML SYR 1 MG IVP ×3 (09:48→13:41)
[2022-03-02] MEDS: Normal Saline Flush 10 ML SYR IVP (12:27)
[2022-03-02] MEDS: Gadoterate meglumine 20 ML SYRINGE 17 ML IVP (12:28)
[2022-03-02] MEDS: diazePAM 10 MG/2 ML SYR IVP (13:41)
== END 2022-03-02 14:38 | disposition home or self-care (01) ==
PROVIDERS: Emergency Provider Physician Assistant; PCP Nurse Practitioner Family
DX: M51.27 Other intervertebral disc displacement, lumbosacral region (principal); E10.9 Type 1 diabetes mellitus without complications; D72.829 Elevated white blood cell count, unspecified; R79.82 Elevated C-reactive protein (CRP); Z79.4 Long term (current) use of insulin; Z79.899 Other long term (current) drug therapy
CPT/HCPCS: 36415; 72158; 80053; 80307; 81025; 83690; 85652; 96365; 96366; 96375; 96376; 99284; J2360; 81003; 85025; 86140; J1170; J1885; J3360

== ENCOUNTER 2022-03-03 09:52 | Emergency (ER) | payer MEDICARE, MEDICAID, SELFPAY ==
[2022-03-03 10:12] VITALS: BP 108/92; PULSE 120; RESP 15; TEMP 36.4; O2SAT 96
[2022-03-03 11:13] LABS: Abs Immature Grans 0.02 10^3/uL (0.0-0.06); Absolute Basophil Count 0.04 10^3/uL (0.0-0.2); Absolute Eosinophil Count 0.28 10^3/uL (0.0-0.7); Absolute Lymphocyte Count 2.46 10^3/uL (1.2-3.4); Absolute Monocyte Count 0.67 10^3/uL (0.1-0.8); Absolute Neutrophil Count 5.85 10^3/uL (1.2-6.7); Basophils % 0.4; HCT 43.2 % (36.0-46.0); HGB 14.4 g/dL (11.2-15.7); Immature Grans % 0.2; Lymphocytes % 26.4; MCH 30.3 pg (27.0-33.0); MCHC 33.3 % (32.0-36.0); MCV 91 fL (80-95); MPV 9.8 fL (8.0-11.0); Monocytes % 7.2; Neutrophils % 62.8; Platelet Count 382 10^3/uL (130-400); RBC 4.76 10^6/uL (3.93-5.22); RDW 12.4 % (11.7-14.6); RDW-SD 41.3 fL; WBC 9.32 10^3/uL (4.4-10.8)
[2022-03-03] MEDS: Dexamethasone 4 MG/ML VIAL (11:30)
[2022-03-03] MEDS: Acetaminophen 500 MG TAB (11:30)
[2022-03-03 11:37] LABS: ALT 21 U/L (14-59); AST 12 U/L (15-37); Albumin 3.3 g/dL (3.4-5.0); Alkaline Phosphatase 95 U/L (46-116); Anion Gap 5.4 mmol/L (3-11); BUN 31 mg/dL (7-18); Bilirubin, Total 0.3 mg/dL (0.2-1.0); CO2 28.6 mmol/L (21.0-32.0); CREATININE 0.7 mg/dL (0.55-1.02); Calcium 8.7 mg/dL (8.5-10.1); Chloride 103 mmol/L (98-107); Estimated GFR 112.05 (mL/min/1.73m2); Glucose 204 mg/dL (74-106); Potassium 3.8 mmol/L (3.5-5.1); Sodium 137 mmol/L (136-145)
[2022-03-03 11:49] LABS: C-Reactive Protein 0.56 mg/dL (0.0-0.3); Lipase 41 U/L (73-393)
--- NOTE | 2022-03-03 11:57 | IN_ITS ---
Date of service: 03/03/22 Time of Service: 12:03 PT Notes Physical Therapy ED Initial Evaluation Date: 03/03/2022 Referring Doctor: BILL Fernández PT Orders: PT CONSULT: Evalauate Precautions: Fall. Standard. Activity as tolerated. Patient Profile/Admitting Diagnosis: Sadi is a 41 year-old female who returned to the ED today due to persistent L- sided back pain and bilateral leg pain with left lower extremity more affected. Lumbar MRI from 03/02/2022 showed L5-S1 disc herniation with a stable left- sided disc protrusion with apparent impingement on left S1 nerve root.? PMHX: All Active Problems?(Updated 03/02/22 @ 14:20 by BILL Perez) Pain in left lumbar region of back (Acute) Lumbar paraspinal muscle spasm (Acute) Herniation of intervertebral disc between L5 and S1 (Acute) Insulin dependent type 1 diabetes mellitus (Acute) COPD (chronic obstructive pulmonary disease) (Chronic) Social History/Home Situation: Lives with significant other in a private home with one step to enter. 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 Independent with all aspects of ADLs prior to admission. Equipment Owned/DME: Wheelchair, FWW Subjective: Patient appeared to be moaning in agony when PT came in and said that she was in 10/10 pain. She describes pain starting from her low back going down her pubic area and then going down her leg and foot. Touching her L leg made her hypersensitive. When engaged in conversation, she stops moaning and answers calmly. She was highly cautious about sitting up and transferring that she wanted her SO to be there close to help her. Weight bearing was very minimal on the left foot but patient was able to manage taking about 5 small steps from commode back to bed with not much moaning. Patient and SO states that they already bought a wheelchair and a front-wheeled walker that she can use at home as needed. She adds that she has had chronic constipation and has been taking laxative for it. Objective: General Observation: Supine in bed. Appeared in a lot of pain as she was moaning in pain upon arrival of PT. Mental Status: Alert and oriented as to person, place, time, and purpose. Able to pay attention, focus, and respond appropriately. Pain: 10/10 at rest Vital Signs: WNL as closely monitored by nusring staff ROM: Unwilling to move either leg into a straight leg raise or a [id number] due to pain and is highly guarding movements in B LE at this time. Able to slowly slide B LE with minimal assist help from center of bed to the edge of bed. Able to advance LE minimally in alternating manner during transfer/short walk tasks. WFL in knee and ankles. Strength: Right Lower Extremity: Grossly 3-/5 due to pain Left Lower Extremity: Grossly 3-/5 due to pain Sensation: Inatct as to pain and pressure in B LE Bed Mobility/Transfers: Semi sidelying to sit minimal assist Sit to semi-side lying minimal assist Sit to stand minimal assist Stand to sit with stand by assist Bed to bedside commode moderate assist Bedside commode to bed contact guard assist Gait: Only allowed short distance ambulation to and from bedside commode due to pain level. Required contact guard assist using front-wheeled walker for about 5 steps with high anxiety over putting weight on the L. No knee buckling. No report of lightheadedness. Balance: Static Sitting: Fair Dynamic Sitting: Fair Static Standing: Fair Dynamic Standing: Poor Special Tests: Mobility Limitations Standardized Measure [facility] AM-PAC 6 clicks Basic Mobility Inpatient Short Form: Raw Score: 18 CMS Score: 47% deficit NEURO: SLR- unwilling to move either LE Unable to test individual myotomes at this time Informed Consent/Education: Patient was instructed in purpose of PT consult. Agreeable to having PT continue with management of mobility limitations, pain, and ambulatory dysfunction. Assessment: Assessment today has been limited by patient's very limited willingness to move due to severe pain despite administration of IV pain meds earlier today. Patient presents with clinical signs and symptoms consistent with current/admitting diagnoses that have resulted to mobility limitations, gait instability, generalized weakness, and overall ADL decline as demonstrated by the following impairment level findings: 1. Decreased strength to B LE major muscle groups 2. Impaired sitting/standing balance 3. Impaired activity tolerance 4. Limitation of joint range of motion in B LE joints due to pain 5. 10/10 pain in low back Impairments are contributing to the following functional limitations: 1. Decline in bed mobility skills 2. Decline in transfer skills 3. Difficulty with ambulation without assistive device and physical assistance 4. Increased completion time for mobility ADL performance 5. Increased risk for falls 6. Difficulty with managing steps alone safely Patient is assessed as a 70217 complexity based on the following: History: 41-year-old female with past medical history as indicated above Examination: Demonstrable impairment in strength, balance, and mobility level with underlying impairments and functional limitations as exhibited above as well as deficit score of 47% utilizing the [facility] Mobility Inpatient Short Form Presentation: Evolving Decision Makin moderate complexity Goals: N/A. PT evaluation only. Plan of Care/Treatment Plan: N/A. PT evaluation only. DISCHARGE RECOMMENDATIONS: [] Home with no services [] [X] Home with services. Recommend home health PT services in order to progress mobility level using least restrictive assistive ambulatory device, assess home safety, identify additional equipment needs, and establish a functional maintenance program that will increase ability of patient to remain at home. [] Home with outpatient PT [] [] SNF for continued rehabilitation [] [] [facility] [] [] SNF versus LTC based on ability to participate and progress [] TREATMENT CODE/TIME: 91032 x 20 minutes, 81577 x13 minutes beginning at 11:57 AM. Thank you for the opportunity to participate in the care of this patient. Vidya Brooks PT, DPT, CLT [facility] [place], [place]
[2022-03-03] MEDS: Ketorolac 15 MG/ML VIAL (12:34)
[2022-03-03] MEDS: Orphenadrine 60 MG/2 ML VIAL (12:35)
--- NOTE | 2022-03-03 12:42 | W.ED.GENAD ---
Discharge Plan Disposition Patient Disposition: Home Condition: Stable Discharge Details Clinical Impression: Herniation of intervertebral disc between L5 and S1 Primary Care Provider: CORDELIA MCKENZIE ED Provider: Alpa Zaman Home Meds and New Rx's Prescriptions: New orphenadrine citrate 100 mg tablet extended release 100 mg PO BID Qty: 14 0RF ketorolac 10 mg tablet 10 mg PO Q8H 5 Days Qty: 15 0RF omeprazole magnesium 20 mg tablet,delayed release (DR/EC) 20 mg PO DAILY Qty: 14 0RF dexamethasone 4 mg tablet 4 mg PO DAILY Qty: 13 0RF Rx Instructions: take 1 tab by mouth daily for 7 days, 1/2 tablet daily for 6 days gabapentin [Neurontin] 300 mg capsule 300 mg PO DAILY Qty: 30 0RF Rx Instructions: may take 1-3 tablets every 8 hours as needed for pain Continued insulin aspart U-100 [Novolog FlexPen U-100 Insulin] 100 unit/mL (3 mL) Insulin Pen See Rx Instructions .ROUTE .COMPLEX Rx Instructions: sliding scale levalbuterol tartrate 45 mcg/actuation Hfa Aerosol Inhaler 1 puff INHALATION Q4H PRN insulin degludec [Tresiba FlexTouch U-200] 200 unit/mL (3 mL) insulin pen 40 unit SUBCUT DAILY oxycodone-acetaminophen [Percocet] 7.5-325 mg tablet 1 tab PO Q8H PRNQty: 8 0RF gabapentin 100 mg capsule 100 mg PO 3XD Label Comments: Take 1 capsule by mouth three times a day Discontinued methylprednisolone 4 mg tablet 1 tab PO DAILY Label Comments: TAKE 1 TABLET BY MOUTH DAILY FOR 10 DAYS cyclobenzaprine 5 mg tablet 1 tab PO BID Label Comments: TAKE 1 TABLET BY MOUTH TWICE DAILY FOR 10 DAYS NEEDED FOR MUSCLE SPASM cyclobenzaprine 5 mg tablet Label Comments: TAKE 1 TABLET BY MOUTH TWICE DAILY FOR 10 DAYS NEEDED FOR MUSCLE SPASM Discharge Instructions Additional Instructions: Take steroid as prescribed This will cause her blood sugar to be elevated, you should use your sliding scale to adjust your glucose Take all of the medications as prescribed In terms of the Neurontin you can take between 103 100 mg or 1-3 tabs every 8 hours as needed for your radicular pain, this will help with the nerve pain in your leg Physical therapy will be contacting you to set up home visits Use your walker and commode that has been set up at home You should continue to walk and move around as this will harm you to be sedentary Please follow-up with your doctor at your scheduled appointment Changes significantly in bowel or bladder, fever, chills, or with any new or worsening symptoms, you should be reevaluated Pain management referrals have been sent to all of the surrounding pain clinics Referrals: CORDELIA MCKENZIE, FORENSIC INVESTIGATOR [Primary Care Provider] - Discharge Data Discharge Date/Time-TO BE ENTERED AT DEPARTURE: 03/03/22 13:39 Medical Decision Making MRI was reviewed on this 41-year-old female that presents with recurrent visits for lumbar radiculopathy MRI shows evidence of L5-S1 disc herniation with mild compression on the nerve root, her exam is consistent with this finding without any clinical exam findings consistent with cauda equina syndrome Patient received Toradol, steroids, Tylenol, she is feeling improvement PT was was ordered for evaluation and patient performed well with walker, she will be supplied with a walker for home Care was discussed with patient's primary care physician, Cordelia Mckenzie, nurse practitioner and he will follow this patient Plan is to refer patient to pain management and spine center at [facility] Patient will also be supplied with home health resources for home PT She feels comfortable this plan, she is ambulatory with antalgic gait with walker Discharged home in stable condition without any clinical evidence of cauda equina syndrome in stable condition with review of diagnostic labs which appear unchanged from prior assessment Return precautions discussed and patient expressed understanding HPI General Date/Time Provider Initiated Documentation: 03/03/22 10:19. HPI Narrative: This 41-year-old female with insulin-dependent diabetes, COPD, and lumbar disc herniation presents with report of persistent and worsening pain to the left lower extremity and back. Known history of herniated disc. Denies any changes in bowel or bladder. Denies any abdominal pain. Denies any fever or chills. Denies history of IV drug use. Related Data Home Medications Medication Instructions Recorded Confirmed insulin aspart U-100 100 unit/mL See Rx Instructions .Route .COMPLEX 02/23/22 03/03/22 (3 mL) subcutaneous pen (Novolog FlexPen U-100 Insulin aspart) insulin degludec 200 unit/mL (3 40 unit subcut DAILY 03/02/22 03/03/22 mL) subcutaneous pen (Tresiba FlexTouch U-200 insulin) levalbuterol tartrate 45 1 puff inhalation Q4H PRN 03/02/22 03/03/22 mcg/actuation aerosol inhaler oxycodone-acetaminophen 7.5 mg-325 1 tab PO Q8H PRN #8 tabs 03/02/22 mg tablet (Percocet) dexamethasone 4 mg tablet 4 mg PO DAILY #13 tabs 03/03/22 gabapentin 100 mg capsule 100 mg PO 3XD 03/03/22 03/03/22 gabapentin 300 mg capsule 300 mg PO DAILY #30 caps 03/03/22 (Neurontin) ketorolac 10 mg tablet 10 mg PO Q8H 5 days #15 tabs 03/03/22 omeprazole magnesium 20 mg 20 mg PO DAILY #14 tabs 03/03/22 tablet,delayed release orphenadrine citrate 100 mg 100 mg PO BID #14 tabs 03/03/22 tablet,extended release Previous Rx's Medication Instructions Recorded oxycodone-acetaminophen 7.5 mg-325 1 tab PO Q8H PRN #8 tabs 03/02/22 mg tablet (Percocet) dexamethasone 4 mg tablet 4 mg PO DAILY #13 tabs 03/03/22 gabapentin 300 mg capsule 300 mg PO DAILY #30 caps 03/03/22 (Neurontin) ketorolac 10 mg tablet 10 mg PO Q8H 5 days #15 tabs 03/03/22 omeprazole magnesium 20 mg 20 mg PO DAILY #14 tabs 03/03/22 tablet,delayed release orphenadrine citrate 100 mg 100 mg PO BID #14 tabs 03/03/22 tablet,extended release Allergies Allergy/AdvReac Type Severity Reaction Status Date / Time Penicillins Allergy Severe Anaphylaxis Unverified 03/02/22 08:13 Cephalosporins Allergy Unverified 03/02/22 08:13 iodine Allergy Unverified 03/02/22 08:13 shellfish derived Allergy Unverified 03/02/22 08:13 General Stated Complaint: Nk/Back Pain ARUN: 3 Review of Systems All systems reviewed & are unremarkable except as noted in HPI and below PFSH All Active Problems (Updated 03/03/22 @ 12:56 by BILL Fernández) Pain in left lumbar region of back (Acute) Lumbar paraspinal muscle spasm (Acute) Herniation of intervertebral disc between L5 and S1 (Acute) Insulin dependent type 1 diabetes mellitus (Acute) COPD (chronic obstructive pulmonary disease) (Chronic) Social History Smoking/Tobacco Use Status: Never Smoking risk assessment performed?: Yes Alcohol Intake: never Substance use type: does not use Do you feel safe at home: Yes Do you feel safe in your relationship?: Yes Additional Social history: boyfriend at bedside Exam Const General: cooperative and well developed HENMT Head: normal to inspection Eyes Pupils: PERRL Resp Effort & Inspection: normal respiratory effort Auscultation: clear to auscultation bilaterally Cardio Rate: regular rate Rhythm: regular rhythm GI Inspection: normal to inspection Other: No abdominal tenderness Back/Spine/Pelvis Back: no CVA tenderness Other: Lumbar spine tenderness, no paraspinal tenderness Skin General skin exam: no rashes or lesions noted Neuro General: patient alert and patient oriented x3 Other: Negative straight leg raise, negative Babinski, DTRs intact to bilateral lower extremities, strength 4 out of 5 to bilateral lower extremities Extrem Other: Distal pulses intact Course Vital Signs Vital signs: Vital Signs Temperature 36.4 C 03/03/22 10:12 Pulse 120 H 03/03/22 10:12 Respiratory Rate 15 03/03/22 10:12 Blood Pressure 108/92 H 03/03/22 10:12 Pulse Oximetry 96 03/03/22 10:12 Temperature 36.4 C 03/03/22 10:12 Temperature Source Oral 03/03/22 10:12 Pulse 120 H 03/03/22 10:12 Respiratory Rate 15 03/03/22 10:12 Blood Pressure 108/92 H 03/03/22 10:12 Blood Pressure Position Sitting 03/03/22 10:12 Pulse Oximetry 96 03/03/22 10:12 Oxygen Delivery Method Room Air 03/03/22 10:12 Oxygen Flow Rate 0 03/03/22 10:12 Pain Level 10 03/03/22 12:34 Lab/Test Results Lab/Test Results: Laboratory Tests Range/Units 03/03/22 03/03/22 11:00 11:00 WBC (4.4-10.8) 10^3/uL 9.32 RBC (3.93-5.22) 10^6/uL 4.76 Hgb (11.2-15.7) g/dL 14.4 Hct (36.0-46.0) % 43.2 MCV (80-95) fL 91 MCH (27.0-33.0) pg 30.3 MCHC (32.0-36.0) % 33.3 RDW (11.7-14.6) % 12.4 Plt Count (130-400) 10^3/uL 382 MPV (8.0-11.0) fL 9.8 Immature Gran % 0.2 Neutrophils % 62.8 Lymphocytes % 26.4 Monocytes % 7.2 Eosinophils % 3.0 Basophils % 0.4 Nucleated RBC % (0.0-0.3) % 0.0 Absolute Neutrophils (1.2-6.7) 10^3/uL 5.85 Absolute Lymphocytes (1.2-3.4) 10^3/uL 2.46 Absolute Monocytes (0.1-0.8) 10^3/uL 0.67 Absolute Eosinophils (0.0-0.7) 10^3/uL 0.28 Absolute Basophils (0.0-0.2) 10^3/uL 0.04 Sodium (136-145) mmol/L 137 Potassium (3.5-5.1) mmol/L 3.8 Chloride (98-107) mmol/L 103 Carbon Dioxide (21.0-32.0) mmol/L 28.6 Anion Gap (3-11) mmol/L 5.4 BUN (7-18) mg/dL 31 H Creatinine (0.55-1.02) mg/dL 0.7 Est GFR (CKD-EPI 2020) (mL/min/1.73m2) 112.05 Glucose (74-106) mg/dL 204 H Calcium (8.5-10.1) mg/dL 8.7 Total Bilirubin (0.2-1.0) mg/dL 0.3 AST (15-37) U/L 12 L ALT (14-59) U/L 21 Alkaline Phosphatase (46-116) U/L 95 C-Reactive Protein (0.0-0.3) mg/dL 0.56 H Total Protein (6.4-8.2) g/dL 7.0 Albumin (3.4-5.0) g/dL 3.3 L Lipase (73-393) U/L 41
[2022-03-03 13:07] VITALS: BP 112/86; PULSE 90; RESP 15; O2SAT 95
--- NOTE | 2022-03-03 15:00 | PDOC.ERCMACT ---
- If Service Date Differs Date of service: 03/03/22 Time of Service: 15:00 Care Management Activity Note Lillie is seen in the ED for the second time this week for back pain. At the request of ED provider, CRISTIN coordinates a referral to Pradeep/Tanya FON[facility] for new Home Health PT services as Lillie is having difficulty with ambulation.
== END 2022-03-03 13:39 | disposition home or self-care (01) ==
PROVIDERS: Emergency Provider Physician Assistant; PCP Nurse Practitioner Family
DX: M51.27 Other intervertebral disc displacement, lumbosacral region (principal); E10.9 Type 1 diabetes mellitus without complications; J44.9 Chronic obstructive pulmonary disease, unspecified; Z79.4 Long term (current) use of insulin
CPT/HCPCS: 80053; 83690; 96361; 96374; 96375; 97162; 97530; 99284; J2360; 85025; 86140; J1100; J1885

== ENCOUNTER 2023-02-21 16:52 | Outpatient (REF) | payer MEDICARE, SELFPAY ==
--- OUTSIDE RECORDS SUMMARY | 2023-02-21 16:57 | XMS_ITS | Continuity of Care Document ---
Author Name Unknown Organization [facility] Address [address] [place] [address] Care Team Providers Care Seam Feller Name Role Phone Bharati Mares Primary Care Physician [phone] Encounter [id number] Date(s): 11/07/22 - 11/07/[address] [id number] Encounter Diagnosis Yeast infection(Discharge Diagnosis) - 11/07/22 Candidiasis(Discharge Diagnosis) - 11/07/22 Discharge Disposition: Home or Self Care Attending Physician: Johanna Chirinos MD Admitting Physician: Johanna Chirinos MD Allergies, Adverse Reactions, Alerts Substance Reaction Severity Status SHELLFISH DERIVED Unknown Active acetaminophen-hydrocodone Unknown Ac tive acetaminophen-oxycodone Unknown Acti ve varicella virus vaccine Skin rash Mild Acti ve cephalosporins Unknown Active penicillins Unknown Active Functional Status 11/07/22 Family Member Travel History No recent t ravel Recent Travel History No recent travel Other exposure to Infectious Disease Non e Immunizations Given and Recorded Vaccine Date Status Refusal Reason influenza virus vaccine, live 11/12/20 Recorded influenza virus vaccine, inactivated 01/22/14 Minh rded influenza virus vaccine, inactivated 11/02/10 Minh rded influenza virus vaccine, inactivated 12/22/09 Minh rded influenza virus vaccine, inactivated 02/11/09 Minh rded influenza virus vaccine, inactivated 02/28/07 Minh rded tetanus/diphth/pertuss (Tdap) adult/adol 06/20/12 Recorded tetanus/diphth/pertuss (Tdap) adult/adol 02/08/07 Recorded Novel [id number], all formulation 02/19/09 Recorded rubella virus vaccine 1/1/01 Recorded Medications Albuterol (Eqv-ProAir HFA) 90 mcg/inh inhalation aerosol See Instructions, . use with spacer chamber, 0 Refill(s) Start Date: 02/24/22 Status: Ordered cyclobenzaprine 5 mg oral tablet 5 mg = 1 tab, Oral, BID, PRN as needed for muscle spasm, # 20 tab, 0 Refill(s), Pharmacy: [facility] #[id number], 149.86, cm, 02/24/22 21:23:00 EST, Height/Length Dosing, 85.9, kg, 02/24/22 21:23:00 EST, Weight Dosing Start Date: 02/25/22 Stop Date: 03/07/22 Status: Ordered Diflucan 200 mg oral tablet 200 mg = 1 tab, Oral, Daily, X 10 days, # 10 tab, 0 Refill(s), 11/17/22 9:29:00 PM CDT, Pharmacy: [facility], 149, cm, 11/07/22 20:39:00 EDT, Height/Length Dosing, 76, kg, 11/07/22 20:39:00 EDT, Weight Dosing Start Date: 11/07/22 Stop Date: 11/17/22 Status: Ordered Medrol 4 mg oral tablet 4 mg = 1 tab, Oral, Daily, # 10 tab, 0 Refill(s), Pharmacy: [email or web address] #[id number], 149.86, cm, 02/24/22 21:23:00 EST, Height/Length Dosing, 85.9, kg, 02/24/22 21:23:00 EST, Weight Dosing Start Date: 02/25/22 Stop Date: 03/07/22 Status: Ordered NovoLOG FlexPen 100 units/mL injectable solution See Instructions, Subcutaneous BID(AC), 0 Refill(s) Start Date: 02/24/22 Status: Ordered oxyCODONE 5 mg oral capsule See Instructions, PRN as needed for pain, 1-2 cap Oral every 6 hr, # 10 cap, 0 Refill(s), Pharmacy:[email or web address] #[id number], 149, cm, 02/26/22 2:12:00 EST, Height/Length Dosing, 76, kg, 02/26/22 2:12:00 EST, Weight Dosing Start Date: 02/26/22 Status: Ordered Tresiba 40 units =, Subcutaneous, Daily, 0 Refill(s) Start Date: 02/24/22 Status: Ordered triamcinolone 0.1% topical cream See Instructions, 1 sara Topical BID to affected area apply a thin film 1 week, # 80 g, 6 Refill(s),11/08/23 8:01:00 PM CDT, Pharmacy: [facility], 149, cm, 11/07/22 20:39:00 EDT, Height/Length Dosing, 76, kg, 11/07/22 20:39:00 EDT, Weight Dosing Start Date: 11/07/22 Stop Date: 11/08/23 Status: Ordered Valium 5 mg =, Oral, BID, 0 Refill(s) Start Date: 02/24/22 Status: Ordered Valium 2 mg oral tablet 2 mg = 1 tab, Oral, BID, 0 Refill(s) Start Date: 02/24/22 Status: Ordered Xopenex HFA 45 mcg/inh inhalation aerosol 1 puffs, Inhale, every 4 hr, PRN as needed for wheezing, # 15 g, 2 Refill(s), Pharmacy: [email or web address] #[id number] Start Date: 11/18/21 Status: Ordered Mental Status 11/07/22 Eye Opening Response [place] Spontaneous ly Best Verbal Response [place] Oriented Best Motor Response [place] Obeys comman ds Silvia Coma Score 15 Results Laboratory List Name Date CBC w/ Diff 11/07/22 Comprehensive Metabolic Panel (CMP) 11/07 Hemoglobin A1c 11/07/22 Automated Diff 11/07/22 Most recent to oldest [Reference Range]: 1 WBC [5.0-10.0 x10^3/mcL] 11.8 x10^3/mcL *HI* (11/07/22 9:05 PM) RBC [4.1-5.3 x10^6/mcL] 4.7 x10^6/mcL (11/07/22 9:05 PM) Neutro Auto [40.0-75.0 %] 61.3 % (11/07/22 9:05 PM) Lymph Auto [20.0-50.0 %] 27.8 % (11/07/22 9:05 PM) Denali Auto [2.0-15.0 %] 7.6 % (11/07/22 9:05 PM) Basophil Auto [0.0-1.0 %] 0.5 % (11/07/22 9:05 PM) BUN [7-18 mg/dL] 21 mg/dL *HI* (11/07/22 9:05 PM) Glucose Level [74-106 mg/dL] 186 mg/dL *HI* (11/07/22 9:05 PM) Potassium Level [3.5-5.1 mmol/L] 3.4 mmo l/L *LOW* (11/07/22 9:05 PM) MCV [80.0-96.0 fL] 90.7 fL (11/07/22 9:05 PM) AST [15-37 unit/L] 9 unit/L *LOW* (11/07/22 9:05 PM) ALT [14-59 unit/L] 24 unit/L (11/07/22 9:05 PM) MCHC [31.0-35.0 g/dL] 34.1 g/dL (11/07/22 9:05 PM) Sodium Level [136-145 mmol/L] 138 mmol/L (11/07/22 9:05 PM) Hct [37.0-47.0 %] 42.8 % (11/07/22 9:05 PM) Calcium Level [8.5-10.1 mg/dL] 8.4 mg/dL *LOW* (11/07/22 9:05 PM) Albumin Level [3.4-5.0 g/dL] 3.4 g/dL (11/07/22 9:05 PM) Protein Total [6.4-8.2 g/dL] 7.0 g/dL (11/07/22 9:05 PM) MCH [26.0-32.0 pg] 30.9 pg (11/07/22 9:05 PM) Neutro Absolute 7.2 x10^3/mcL *NA* (11/07/22 9:05 PM) Bilirubin Total [0.2-1.0 mg/dL] 0.3 mg/d L (11/07/22 9:05 PM) Hgb [12.0-16.0 g/dL] 14.6 g/dL (11/07/22 9:05 PM) Alk Phos [46-146 unit/L] 107 unit/L (11/07/22 9:05 PM) Platelets [130-450 x10^3/mcL] 350 x10^3/ mcL (11/07/22 9:05 PM) CO2 [21-32 mmol/L] 25 mmol/L (11/07/22 9:05 PM) eGFR Non-AA [>=60] 94 (11/07/22 9:05 PM) eGFR AA [>=60] 94 (11/07/22 9:05 PM) Hemoglobin A1c [4.0-6.0 %] 7.6 % *HI* (11/07/22 9:05 PM) Chloride Level [98-107 mmol/L] 103 mmol/ L (11/07/22 9:05 PM) RDW-CV [11.5-14.5 %] 12.7 % (11/07/22 9:05 PM) Imm Gran Auto [0.0-0.9 %] 0.3 % (11/07/22 9:05 PM) Slide Review Not Indicated (11/07/22 9:05 PM) Creatinine Level [0.55-1.02 mg/dL] 0.81 mg/dL (11/07/22 9:05 PM) Eos, Auto [1.0-6.0 %] 2.5 % (11/07/22 9:05 PM) Vital Signs Most recent to oldest [Reference Range]: 1 Temperature Temporal Artery [36-38 Deg C ] 36.1 Deg C (11/07/22 8:33 PM) Peripheral Pulse Rate [60-100 bpm] 109 b pm *HI* (11/07/22 8:33 PM) Respiratory Rate [12-24 br/min] 18 br/mi n (11/07/22 8:33 PM) Weight Dosing 76.00 kg (11/07/22 8:39 PM) Weight Estimated 76.00 kg (11/07/22 8:33 PM) Height/Length Dosing 149.000 cm (11/07/22 8:39 PM) Height/Length Estimated 149.000 cm (11/07/22 8:33 PM) Social History Social History Type Response Tobacco Never tobacco user T obacco Use:. Sex Female Hospital Discharge Instructions Patient Education 11/07/2022 21:30:05 Skin Yeast Infection Skin Yeast Infection A skin yeast infection is a condition in which there is an overgrowth of yeast (Danita) that normally lives on the skin. This condition usually occurs in areas of the skin that are constantly warm and moist, such as the skin under the breasts or armpits, or in the groin and other body folds. What are the causes? This condition is caused by a change in the normal balance of the yeast that live on the skin. What increases the risk? You are more likely to develop this condition if you: ??? Are obese. ??? Are . ??? Are 65 years of age or older. ??? Wear tight clothing. ??? Have any of the following conditions: ??? Diabetes. ??? Malnutrition. ??? A weak body defense system (immune system). ??? Take medicines such as: ??? control pills. ??? Antibiotics. ??? Steroid medicines. What are the signs or symptoms? The most common symptom of this condition is itchiness in the affected area. Other symptoms include: ??? A red, swollen area of the skin. ??? Bumps on the skin. How is this diagnosed? This condition is diagnosed with a medical history and physical exam. Your health care provider maycheck for yeast by taking scrapings of the skin to be viewed under a microscope. How is this treated? This condition is treated with medicine. Medicines may be prescribed or available over the counter.The medicines may be: ??? Taken by mouth (orally). ??? Applied as a cream or powder to your skin. Follow these instructions at home: ??? Take or apply hgms-coo-jjtptai and prescription medicines only as told by your health care provider. ??? Maintain a healthy weight. If you need help losing weight, talk with your health care provider. ??? Keep your skin clean and dry. ??? Wear loose-fitting clothing. ??? If you have diabetes, keep your blood sugar under control. ??? Keep all follow-up visits. This is important. Contact a health care provider if: ??? Your symptoms go away and then come back. ??? Your symptoms do not get better with treatment. ??? Your symptoms get worse. ??? Your rash spreads. ??? You have a fever or chills. ??? You have new symptoms. ??? You have new warmth or redness of your skin. ??? Your rash is painful or bleeding. Summary ??? A skin yeast infection is a condition in which there is an overgrowth of yeast (Danita) that normally lives on the skin. ??? Take or apply dxfn-nnn-kpivwip and prescription medicines only as told by your health care provider. ??? Keep your skin clean and dry. ??? Contact a health care provider if your symptoms do not get better with treatment. This information is not intended to replace advice given to you by your health care provider. Make sure you discuss any questions you have with your health care provider. Document Revised: 04/27/2021 Document Reviewed: 04/27/2021 Elsevier Patient Education ?? 2022 [employer] Follow Up Care 11/07/2022 20:33:20 With:Follow up with primary care provider Address: When:1 to 2 weeks Physician Emergency department Note * Johanna Chirinos MD: PERFORM Event Display: ED Note Physician Authored Date: [id number] ALBERTO HELENA :1980 Age:41 years Sex:Female Visit Date:11/07/2022 Primary Care Physician: Bharati Mares ADVERTISEMENT COMPOSITOR Basic Information Time Seen: Johanna Chirinos MD / 11/07/2022 20:48 Chief Complaint Generally feeling unwell flu like sx. DMII known yeast infection in jose area currently applying nystatin. States sugars have been higher than normally lately so she things she has infxn. Dont know what's going on c/o multiple things in triage. History Of Present Illness: Patient reports that she has been dealing with??yeast infections and the??suprapubic and??beneath??her breasts??she states area in her suprapubic has opened up. ??Patient reports she has not felt well she states she has nystatin powder and cream??and it does not seem to be clearing up her yeast shestates that lately??her sugars have been higher she thinks it may be because of the infection.?? Patient reports she had some injections in her back and wonders if that may have affected everything.?? Patient looked on [employer] and was worried she could have sepsis although she knows she does not??likely have sepsis??she thought she should be seen. ??Patient had transferred her primary care provider ??down to [facility] however she has difficulty getting into see her primary care provider??as he seems to work at urgent care as well. Review of Systems: see hpi for ros Physical Exam Vitals & Measurements T:??36.1?C ??(Temporal Artery)?? HR:??109??(Peripheral)?? RR:??18?? SpO2:??92%?? HT:??149.000??cm?? WT:??76.00??kg??(Estimated)?? General: Alert and oriented, well nourished,?No??acute distress Eye: PER,?Normal??conjunctiva, No scleral icterus HENT: Normocephalic?Normal?? hearing?? Respiratory:??Respiration??no distress??no increased work of breathing Heart:??Capillary refill less than 2 seconds??no??edema Chest: wall excursion wnl no abnormal movements no obvious deformities Musculoskeletal:?Normal?? range of motion and strength,?No??tenderness,?No??swelling Skin: Skin is warm, dry and pink,?No??rashes,?No??lesions Neurologic: Awake, alert and oriented X4 Psychiatric: Cooperative, appropriate mood and affect Medical Decision Making: For MDM please see under assessment and plan Procedure No Qualifying Data Assessment/Plan 1.??Yeast infection??B37.9,??Candidiasis??B37.9 Labs are reassuring??we will place patient on Diflucan??150 mg 5 tablets will have available here otherwise she will be on 200 mg a day for the next 10 days.?? Patient also given triamcinolone cream to help with the inflammation??to plan on this twice a day for up to 1 week. ??Patient to follow-up with her primary care provider. Ordered: Diflucan 200 mg oral tablet, 200 mg = 1 tab, Oral, Daily, X 10 days, # 10 tab, 0 Refill(s), 11/17/22 22:29:00 EDT, Pharmacy: [facility], 149, cm, 11/07/22 20:39:00 EDT, Height/Length Dosing, 76, kg, 11/07/22 20:39:00 EDT, Weight Dosing Discharge Patient, 11/07/22 22:29:00 EDT, Home Independently, Constant Indicator ?? Orders: triamcinolone 0.1% topical cream, See Instructions, 1 sara Topical BID to affected area apply a thinfilm 1 week, # 80 g, 6 Refill(s), 11/08/23 21:01:00 EDT, Pharmacy: [facility], 149, cm, 11/07/22 20:39:00 EDT, Height/Length Dosing, 76, kg, 11/07/22 20:39:00 EDT, Weight D... Patient Education Skin Yeast Infection Follow Up With When Contact Information Follow up with primary care provider Within 1 to 2 weeks Additional Instructions: Medication Reconciliation New Prescription fluconazole (Diflucan 200 mg oral tablet)1 tab Oral (given by mouth) every day for 10 Days. Refills: 0. ?? triamcinolone topical (triamcinolone 0.1% topical cream)1 sara Topical BID to affected area apply a thin film 1 week. Refills: 6. ?? Unchanged albuterol (Albuterol (Eqv-ProAir HFA) 90 mcg/inh inhalation aerosol). use with spacer chamber. ?? cyclobenzaprine (cyclobenzaprine 5 mg oral tablet)1 tab Oral (given by mouth) 2 times a day as needed as needed for muscle spasm for 10 Days. Refills: 0. ?? diazePAM (Valium 2 mg oral tablet)1 [...] Puffs Inhale (breathe in) every 4 hours as needed as needed for wheezing. Refills: 2. ?? methylPREDNISolone (Medrol 4 mg oral tablet)1 tab Oral (given by mouth) every day for 10 Days. Refills: 0. ?? oxyCODONE (oxyCODONE 5 mg oral capsule)1-2 cap Oral every 6 hr; as needed as needed for pain. Refills: 0. Problem List/Past Medical History Ongoing No qualifying data Historical No qualifying data Medication Administration Given triamcinolone 0.1% topical cream, 1 sara, Topical Allergies varicella virus vaccine??(Skin rash) SHELLFISH DERIVED acetaminophen-hydrocodone acetaminophen-oxycodone cephalosporins penicillins Social History Alcohol Never Electronic Cigarette/Vaping Electronic Cigarette Use: Never. Substance Use Current, CBD Tobacco Never tobacco user Tobacco Use:. Lab Results CBC and Differential?? LATEST RESULTS?? HISTORICAL RESULTS?? WBC?? 11/07/22 21:05?? 11.8 ??High?? 02/26/22?? 8.6?? RBC?? 11/07/22 21:05?? 4.7?? 02/26/22?? 4.3?? Hgb?? 11/07/22 21:05?? 14.6?? 02/26/22?? 13.0?? Hct?? 11/07/22 21:05?? 42.8?? 02/26/22?? 39.0?? MCV?? 11/07/22 21:05?? 90.7?? 02/26/22?? 91.5?? MCH?? 11/07/22 21:05?? 30.9?? 02/26/22?? 30.5?? MCHC?? 11/07/22 21:05?? 34.1?? 02/26/22?? 33.3?? RDW-CV?? 11/07/22 21:05?? 12.7?? 02/26/22?? 12.7?? Platelets?? 11/07/22 21:05?? 350?? 02/26/22?? 330?? Neutro Auto?? 11/07/22 21:05?? 61.3?? 02/26/22?? 64.2?? Lymph Auto?? 11/07/22 21:05?? 27.8?? 02/26/22?? 27.3?? Denali Auto?? 11/07/22 21:05?? 7.6?? 02/26/22?? 6.9?? Eos, Auto?? 11/07/22 21:05?? 2.5?? 02/26/22?? 0.9 ??Low?? Basophil Auto?? 11/07/22 21:05?? 0.5?? 02/26/22?? 0.5?? Imm Gran Auto?? 11/07/22 21:05?? 0.3?? 02/26/22?? 0.2?? Neutro Absolute?? 11/07/22 21:05?? 7.2?? 02/26/22?? 5.5?? Slide Review?? 11/07/22 21:05?? Not Indicated? Routine Chemistry?? LATEST RESULTS?? HISTORICAL RESULTS?? Sodium Level?? 11/07/22 21:05?? 138?? 02/26/22?? 140?? Potassium Level?? 11/07/22 21:05?? 3.4 ??Low?? 02/26/22?? 4.0?? Chloride Level?? 11/07/22 21:05?? 103?? 02/26/22?? 106?? CO2?? 11/07/22 21:05?? 25?? 02/26/22?? 24?? Alk Phos?? 11/07/22 21:05?? 107? AST?? 11/07/22 21:05?? 9 ??Low? ALT?? 11/07/22 21:05?? 24? BUN?? 11/07/22 21:05?? 21 ??High?? 02/26/22?? 26 ??High?? Glucose Level?? 11/07/22 21:05?? 186 ??High?? 02/26/22?? 175 ??High?? Creatinine Level?? 11/07/22 21:05?? 0.81?? 02/26/22?? 0.59?? eGFR AA?? 11/07/22 21:05?? 94?? 02/26/22?? 117?? eGFR Non-AA?? 11/07/22 21:05?? 94?? 02/26/22?? 117?? Calcium Level?? 11/07/22 21:05?? 8.4 ??Low?? 02/26/22?? 8.3 ??Low?? Protein Total?? 11/07/22 21:05?? 7.0? Albumin Level?? 11/07/22 21:05?? 3.4? Bilirubin Total?? 11/07/22 21:05?? 0.3? Hemoglobin A1c?? 11/07/22 21:05?? 7.6 ??High? Electronically Signed on 11/07/22 10:32 PM Johanna Chirinos MD Emergency department Discharge instructions * Johanna Chirinos MD: PERFORM Event Display: ED Discharge Information Authored Date: [id number] HELENA DOMINGUEZ :1980 Age:41 years Sex:Female Visit Date:11/07/2022 Primary Care Physician: Bharati Mares ADVERTISEMENT COMPOSITOR Discharge Instructions We would like to thank you for allowing us to assist you with your healthcare needs. The following includes patient education materials and information regarding your injury/illness. Diagnosis from Today's Visit Yeast infection Candidiasis Discharge Vitals Temperature??(Temporal Artery) 97.0 ??F (36.1 ??C) Heart Rate??(Peripheral) 109 Respiratory Rate?? 18 Height?? 58.66 in (149.000 cm) Weight??(Estimated) 167.58 lb (76.00 kg) Allergies varicella virus vaccine??(Skin rash) SHELLF[place] DERIVED acetaminophen-hydrocodone acetaminophen-oxycodone cephalosporins penicillins What to Do Next Instructions from Your Care Team You may use??your triamcinolone cream to help with inflammation??in your yeast area as this will not kill off the yeast and will just help with the inflammation??you will still need to be on it some yeast medication to help with the infection.?? Take Diflucan (fluconazole) 200 mg a day for the next7 to 10 days, while you are on this medication you may continue with your nystatin if it seems to??sooth??however the Diflucan should kill off yeast. You Need to Schedule the Following Appointments Follow Up with??Follow up with primary care provider When:??Within 1 to 2 weeks You were treated today on an emergency basis; it may be young to contact your primary care provider to notify them of your visit today. You may have been referred to your regular doctor or a specialist, please follow up as instructed. If your condition worsens or you can't get in to see the doctor, contact the Emergency Department. Medications What How Much When Why Instructions Next Dose New fluconazole (Diflucan 200 mg oral tablet) 1 tab Oral (given by mouth) Every day Yeast infection Candidiasis Duration: 10 Days Pickup at [facility] New triamcinolone topical (triamcinolone 0.1% topical cream) See instructions Refills: 6 1 sara Topical BID to affected area apply a thin film 1 week ?? Pickup at [facility] Unchanged albuterol (Albuterol (Eqv-ProAir HFA) 90 mcg/ [...] Every day Lumbosacral radiculopathy Duration: 10 Days Unchanged oxyCODONE (oxyCODONE 5 mg oral capsule) See instructions 1-2 cap Oral every 6 hr, As needed for as needed for pain ?? Pharmacy Information [facility]: [address] [place] [phone] [employer] Skin Yeast Infection A skin yeast infection is a condition in which there is an overgrowth of yeast (Danita) that normally lives on the skin. This condition usually occurs in areas of the skin that are constantly warm and moist, such as the skin under the breasts or armpits, or in the groin and other body folds. What are the causes? This condition is caused by a change in the normal balance of the yeast that live on the skin. What increases the risk? You are more likely to develop this condition if you: ? Are obese. ? Are . ? Are 65 years of age or older. ? Wear tight clothing. ? Have any of the following conditions: ? Diabetes. ? Malnutrition. ? A weak body defense system (immune system). ? Take medicines such as: ? control pills. ? Antibiotics. ? Steroid medicines. What are the signs or symptoms? The most common symptom of this condition is itchiness in the affected area. Other symptoms include: ? A red, swollen area of the skin. ? Bumps on the skin. How is this diagnosed? This condition is diagnosed with a medical history and physical exam. Your health care provider maycheck for yeast by taking scrapings of the skin to be viewed under a microscope. How is this treated? This condition is treated with medicine. Medicines may be prescribed or available over the counter.The medicines may be: ? Taken by mouth (orally). ? Applied as a cream or powder to your skin. Follow these instructions at home: ? Take or apply xafx-prh-kfrtlrg and prescription medicines only as told by your health care provider. ? Maintain a healthy weight. If you need help losing weight, talk with your health care provider. ? Keep your skin clean and dry. ? Wear loose-fitting clothing. ? If you have diabetes, keep your blood sugar under control. ? Keep all follow-up visits. This is important. Contact a health care provider if: ? Your symptoms go away and then come back. ? Your symptoms do not get better with treatment. ? Your symptoms get worse. ? Your rash spreads. ? You have a fever or chills. ? You have new symptoms. ? You have new warmth or redness of your skin. ? Your rash is painful or bleeding. Summary ? A skin yeast infection is a condition in which there is an overgrowth of yeast (Danita) that normally lives on the skin. ? Take or apply jatu-ibt-ykvvzjd and prescription medicines only as told by your health care provider. ? Keep your skin clean and dry. ? Contact a health care provider if your symptoms do not get better with treatment. This information is not intended to replace advice given to you by your health care provider. Make sure you discuss any questions you have with your health care provider. Document Revised: 04/27/2021 Document Reviewed: 04/27/2021 [employer] Patient Education ?? 2022 [employer] Tests Performed Medications and Immunizations Administered Given triamcinolone 0.1% topical cream, 1 sara, Topical Lab Test Name Test Result Date/Time WBC 11.8 x10^3/mcL 11/07/2022 21:05 EDT RBC 4.7 x10^6/mcL 11/07/2022 21:05 EDT Hgb 14.6 g/dL 11/07/2022 21:05 EDT Hct 42.8 % 11/07/2022 21:05 EDT MCV 90.7 fL 11/07/2022 21:05 EDT MCH 30.9 pg 11/07/2022 21:05 EDT MCHC 34.1 g/dL 11/07/2022 21:05 EDT RDW-CV 12.7 % 11/07/2022 21:05 EDT Platelets 350 x10^3/mcL 11/07/2022 21:05 EDT Neutro Auto 61.3 % 11/07/2022 21:05 EDT Lymph Auto 27.8 % 11/07/2022 21:05 EDT Denali Auto 7.6 % 11/07/2022 21:05 EDT Eos, Auto 2.5 % 11/07/2022 21:05 EDT Basophil Auto 0.5 % 11/07/2022 21:05 EDT Imm Gran Auto 0.3 % 11/07/2022 21:05 EDT Neutro Absolute 7.2 x10^3/mcL 11/07/2022 21:05 EDT Slide Review Not Indicated 11/07/2022 21:05 EDT Sodium Level 138 mmol/L 11/07/2022 21:05 EDT Potassium Level 3.4 mmol/L 11/07/2022 21:05 EDT Chloride Level 103 mmol/L 11/07/2022 21:05 EDT CO2 25 mmol/L 11/07/2022 21:05 EDT Alk Phos 107 unit/L 11/07/2022 21:05 EDT AST 9 unit/L 11/07/2022 21:05 EDT ALT 24 unit/L 11/07/2022 21:05 EDT BUN 21 mg/dL 11/07/2022 21:05 EDT Glucose Level 186 mg/dL 11/07/2022 21:05 EDT Creatinine Level 0.81 mg/dL 11/07/2022 21:05 EDT eGFR AA 94 11/07/2022 21:05 EDT eGFR Non-AA 94 11/07/2022 21:05 EDT Calcium Level 8.4 mg/dL 11/07/2022 21:05 EDT Protein Total 7.0 g/dL 11/07/2022 21:05 EDT Albumin Level 3.4 g/dL 11/07/2022 21:05 EDT Bilirubin Total 0.3 mg/dL 11/07/2022 21:05 EDT Hemoglobin A1c 7.6 % 11/07/2022 21:05 EDT Patient/Burial Vault Maker Signature Patient Name:ALBERTO HELENA I have received this information and my questions have been answered. Patient/Burial Vault Maker Name: Patient/Burial Vault Maker Signature: Relationship to Patient: Witness Name/Signature: Date: Electronically Signed on: 11/07/2022 22:31 EDTSigned by:[facility] Emergency department Note * Tami Stanton H: PERFORM Event Display: ED Notes Authored Date: [id number] * Tami Stanton H: PERFORM Event Display: ED Notes Authored Date: [id number] Patient Care team information Care Team Personnel Name: Bharati Mares ADVERTISEMENT COMPOSITOR Position: No Access Member Role: Informed Provider Address: Address: [address] [address]- Name: Timothy Alcantar RN Position: Nurse Member Role: ED Nurse Name: Johanna Chirinos MD Position: Physician Member Role: Admitting Physician Address: Address: [address] [place] [id number] Care Team Related Persons Name: LING AMES
--- OUTSIDE RECORDS SUMMARY | 2023-02-21 16:57 | XMS_ITS | Continuity of Care Document ---
Author Name Unknown Organization [facility] Address [address] [place] [address] Care Team Providers Care Boss Miner Name Role Phone Bharati Mares Primary Care Physician [phone] Encounter [facility]_[place] Date(s): 11/15/22 - 11/15/22 [facility] [address] [place] [address] Discharge Disposition: Home or Self Care Attending Physician: Johanna Chirinos MD Admitting Physician: Johanna Chirinos MD Referring Physician: Johanna Chirinos MD Allergies, Adverse Reactions, Alerts Substance Reaction Severity Status SHELLFISH DERIVED Unknown Active acetaminophen-hydrocodone Unknown Ac tive acetaminophen-oxycodone Unknown Acti ve varicella virus vaccine Skin rash Mild Acti ve penicillins Unknown Active cephalosporins Unknown Active Immunizations Given and Recorded Vaccine Date Status Refusal Reason influenza virus vaccine, live 11/12/20 Recorded influenza virus vaccine, inactivated 01/22/14 Minh rded influenza virus vaccine, inactivated 11/02/10 Minh rded influenza virus vaccine, inactivated 12/22/09 Minh rded influenza virus vaccine, inactivated 02/11/09 Minh rded influenza virus vaccine, inactivated 02/28/07 Minh rded tetanus/diphth/pertuss (Tdap) adult/adol 06/20/12 Recorded tetanus/diphth/pertuss (Tdap) adult/adol 02/08/07 Recorded Novel [id number], all formulation 02/19/09 Recorded rubella virus vaccine 02/21/00 Recorded Medications Albuterol (Eqv-ProAir HFA) 90 mcg/inh inhalation aerosol See Instructions, . use with spacer chamber, 0 Refill(s) Start Date: 02/24/22 Status: Ordered cyclobenzaprine 5 mg oral tablet 5 mg = 1 tab, Oral, BID, PRN as needed for muscle spasm, # 20 tab, 0 Refill(s), Pharmacy: [facility] #[id number], 149.86, cm, 02/24/22 21:23:00 EST, Height/Length Dosing, 85.9, kg, 02/24/22 21:23:00 EST, Weight Dosing Start Date: 02/25/22 Stop Date: 03/07/22 Status: Ordered Diflucan 200 mg oral tablet 200 mg = 1 tab, Oral, Daily, X 10 days, # 10 tab, 0 Refill(s), 11/17/22 9:29:00 PM CDT, Pharmacy: [facility] #[id number], 149, cm, 11/07/22 20:39:00 EDT, Height/Length Dosing, 76, kg, 11/07/22 20:39:00 EDT, Weight Dosing Start Date: 11/07/22 Stop Date: 11/17/22 Status: Ordered Medrol 4 mg oral tablet 4 mg = 1 tab, Oral, Daily, # 10 tab, 0 Refill(s), Pharmacy: [facility] #[id number], 149.86, cm, 02/24/22 21:23:00 EST, Height/Length Dosing, 85.9, kg, 02/24/22 21:23:00 EST, Weight Dosing Start Date: 02/25/22 Stop Date: 03/07/22 Status: Ordered NovoLOG FlexPen 100 units/mL injectable solution See Instructions, Subcutaneous BID(AC), 0 Refill(s) Start Date: 02/24/22 Status: Ordered oxyCODONE 5 mg oral capsule See Instructions, PRN as needed for pain, 1-2 cap Oral every 6 hr, # 10 cap, 0 Refill(s), Pharmacy:[facility] #[id number], 149, cm, 02/26/22 2:12:00 EST, Height/Length Dosing, 76, kg, 02/26/22 2:12:00 EST, Weight Dosing Start Date: 02/26/22 Status: Ordered Tresiba 40 units =, Subcutaneous, Daily, 0 Refill(s) Start Date: 02/24/22 Status: Ordered triamcinolone 0.1% topical cream See Instructions, 1 sara Topical BID to affected area apply a thin film 1 week, # 80 g, 6 Refill(s),11/08/23 8:01:00 PM CDT, Pharmacy: [facility], 149, cm, 11/07/22 20:39:00 EDT, Height/Length [...] wheezing, # 15 g, 2 Refill(s), Pharmacy: [facility] #[id number] Start Date: 11/18/21 Status: Ordered Social History Social History Type Response Tobacco Never tobacco user T obacco Use:. Sex Female Patient Care team information Care Team Personnel Name: Bharati Mares NP Position: No Access Member Role: Informed Provider Address: Address: [id number] [place] [address] Care Team Related Persons Name: LING AMES
--- OUTSIDE RECORDS SUMMARY | 2023-02-21 16:58 | XMS_ITS | Continuity of Care Document ---
Author Name Unknown Organization [facility] Address [address] [place] [address] Care Team Providers Care Roll Coverer Name Role Phone Bharati Mares Primary Care Physician [phone] Encounter [facility] Date(s): 11/04/22 - 11/04/[address] [address] Encounter Diagnosis Normal breast exam(Discharge Diagnosis) - 11/04/22 Discharge Disposition: Home or Self Care Attending Physician: Daren Perez MD Admitting Physician: Daren Perez MD Referring Physician: Daren Perez MD Allergies, Adverse Reactions, Alerts Substance Reaction Severity Status SHELLFISH DERIVED Unknown Active acetaminophen-hydrocodone Unknown Ac tive acetaminophen-oxycodone Unknown Acti ve varicella virus vaccine Skin rash Mild Acti ve cephalosporins Unknown Active penicillins Unknown Active Immunizations Given and Recorded Vaccine Date Status Refusal Reason influenza virus vaccine, live 11/12/20 Recorded influenza virus vaccine, inactivated 01/22/14 Minh rded influenza virus vaccine, inactivated 11/02/10 Mihn rded influenza virus vaccine, inactivated 12/22/09 Minh rded influenza virus vaccine, inactivated 02/11/09 Minh rded influenza virus vaccine, inactivated 02/28/07 Minh rded tetanus/diphth/pertuss (Tdap) adult/adol 06/20/12 Recorded tetanus/diphth/pertuss (Tdap) adult/adol 02/08/07 Recorded Novel [id number], all formulation 02/19/09 Recorded rubella virus vaccine 02/21/00 Recorded Medications Albuterol (Eqv-ProAir HFA) 90 mcg/inh inhalation aerosol See Instructions, . use with spacer chamber, 0 Refill(s) Start Date: 02/24/22 Status: Ordered cyclobenzaprine 5 mg oral tablet 5 mg = 1 tab, Oral, BID, PRN as needed for muscle spasm, # 20 tab, 0 Refill(s), Pharmacy: [facility] #[id number], 149.86, cm, 02/24/22 21:23:00 EST, Height/Length Dosing, 85.9, kg, 02/24/22 21:23:00 EST, Weight Dosing Start Date: 02/25/22 Stop Date: 03/07/22 Status: Ordered Medrol 4 mg oral tablet 4 mg = 1 tab, Oral, Daily, # 10 tab, 0 Refill(s), Pharmacy: [facility] #[id number], 149.86, cm, 02/24/22 21:23:00 EST, Height/Length Dosing, 85.9, kg, 02/24/22 21:23:00 EST, Weight Dosing Start Date: 02/25/22 Stop Date: 03/07/22 Status: Ordered NovoLOG FlexPen 100 units/mL injectable solution See Instructions, Subcutaneous BID(AC), 0 Refill(s) Start Date: 02/24/22 Status: Ordered oxyCODONE 5 mg oral capsule See Instructions, PRN as needed for pain, 1-2 cap Oral every 6 hr, # 10 cap, 0 Refill(s), Pharmacy:[facility] #[id number], 149, cm, 02/26/22 2:12:00 EST, Height/Length Dosing, 76, kg, 02/26/22 2:12:00 EST, Weight Dosing Start Date: 02/26/22 Status: Ordered Tresiba 40 units =, Subcutaneous, Daily, 0 Refill(s) Start Date: 02/24/22 Status: Ordered Valium 5 mg =, Oral, BID, 0 Refill(s) Start Date: 02/24/22 Status: Ordered Valium 2 mg oral tablet 2 mg = 1 tab, Oral, BID, 0 Refill(s) Start Date: 02/24/22 Status: Ordered Xopenex HFA 45 mcg/inh inhalation aerosol 1 puffs, Inhale, every 4 hr, PRN as needed for wheezing, # 15 g, 2 Refill(s), Pharmacy: [facility] #[id number] Start Date: 11/18/21 Status: Ordered Social History Social History Type Response Tobacco Never tobacco user T obacco Use:. Sex Female Patient Care team information Care Team Personnel Name: Bharati Mares BOARD MILL SUPERVISOR Position: No Access Member Role: Informed Provider Address: Address: [address] Care Team Related Persons Name: LING AMES
--- OUTSIDE RECORDS SUMMARY | 2023-02-21 16:58 | XMS_ITS | CCD ---
Author Name Unknown Address [address] [place] [id number] Organization Unknown Address [address] [place] [address] [id number] Care Team Providers Care Humanities Instructor Name Role Phone ART TRUJILLO Attending Physician [phone] ART TRUJILLO Er Physician 9 [phone] SMILEY Redman Registered Nurse [phone] JACQUE Marinelli Registered Nurse [phone] Vital Signs Vital Sign Value Unit Date/Time Recent/Initial ? BMI (Body Mass Index) 39.08 kg/m^2 10/12/2022 17: 47 Initial VS Weight Measured 187 lbs 10/12/2022 17:47 Ini tial VS Height 58 in 10/12/2022 17:47 Initial VS BSA (Body Surface Area) 1.86 m^2 10/12/2022 1 7:47 Initial VS BP Systolic 126 mmHg 10/12/2022 17:47 Initial VS BP Diastolic 90 mmHg 10/12/2022 17:47 Initia l VS Respiratory Rate 16 bpm 10/12/2022 17:47 In itial VS Heart Rate 108 bpm 10/12/2022 17:47 Initial VS Body Temperature 36.2 degrees 10/12/2022 17:47 In itial VS Allergies Allergy Code All[facility] Type [facility] Hives Active PENICILLIN 0 Drug allergy SWELLING Active Procedures Unknown or Not Available. History of Immunizations Unknown or Not Available. Problems Problem Code Start Date Resolved Date Status Pain in back [id number] 10/12/2022 Resolved Results TEST QUAL (URINE) - Collect Date/Time: 10/12/2022 18:01 Test Name Code Test Result Test Units Test Ref Rang e TEST 2105- NEGATIVE N/A URINALYSIS WITH MICRO AND RE FLEX CULTUR* - Collect Date/Time: 10/12/2022 18:01 Test Name Code Test Result Test Units Test Ref Rang e COLLECTION MODE: 76675-9 CLEAN CATCH N/A Color 5778-6 YELLOW N/A yellow Appearance 5767-9 CLEAR N/A clear Glucose urine 72030-5 NEGATIVE N/A negative mg /dl Bilirubin 5770-3 NEGATIVE N/A negative Ketones 2514-8 TRACE N/A negative mg/dl Spec gravity 5811-5 1.025 N/A 1.003 - 1.03 0 pH urine 2756-5 6.5 N/A 5.0 - 7.0 Protein 16278-0 NEGATIVE N/A negative mg/dl Urobilinogen 23297-1 1.0 N/A <or= 1 EU/dl Nitrite. 5802-4 NEGATIVE N/A negative Blood 5794-3 NEGATIVE N/A negative Leukocytes. NEGATIVE N/A negative WBCs. 32252-6 0-5 N/A 0-5 / hpf RBCs 96757-7 0-5 N/A 0-5 / hpf Epith cells 40976-6 0-5 N/A 0-5 / hpf Cell types squamous N/A Crystals none N/A none Bacteria minimal N/A none Mucus none N/A none Casts none N/A none /lpf Active Medications Unknown or Not Available. Medications Administered During Visit Unknown or Not Available. Encounters Encounter Diagnosis Diagnosis Code Start Date Urinary tract infectious disease [id number] 10/12/2022 Social History Smoking Status Code Start Date End Date Never smoker [id number] Patient Decision Aids Unknown or Not Available. Discharge Instructions You were admitted to [facility] on 10/12/2022 17:36 with a principal diagnosis of Urinary tract infection, site not specified You had the following tests done: TEST QUAL (URINE)URINALYSIS WITH MICRO AND REFLEX CULTUR* You were discharged from [facility] on 10/12/2022 19:34 Should you have any questions prior to discharge, please contact a member of your healthcare team. If you have left the hospital and have any questions, please contact your primary care physician. Chief Complaint and Reason For Visit Chief Complaint Date of Onset POSSIBLE UTI Function Status Unknown or Not Available. Plan of Care Unknown or Not Available. Referral/Transition of Care Unknown or Not Available.
--- OUTSIDE RECORDS SUMMARY | 2023-02-21 16:58 | XMS_ITS | Continuity of Care Document ---
Author Name Unknown Organization [facility] Address [address] [place] [address] Care Team Providers Care Sporting Goods Sales Associate Name Role Phone Bharati Mares Primary Care Physician [phone] Encounter [place] Date(s): 08/24/22 - 08/24/[address] [address] Discharge Disposition: Home Allergies, Adverse Reactions, Alerts Substance Reaction Severity Status SHELLFISH DERIVED Unknown Active acetaminophen-hydrocodone Unknown Ac tive acetaminophen-oxycodone Unknown Acti ve varicella virus vaccine Skin rash Mild Acti ve cephalosporins Unknown Active penicillins Unknown Active Assessment and Plan Future Scheduled Tests Radiology* MG Mammo Screening Bilateral w/ Wilmer 08/24/22 Immunizations Given and Recorded Vaccine Date Status Refusal Reason influenza virus vaccine, live 11/12/20 Recorded influenza virus vaccine, inactivated 01/22/14 Minh rded influenza virus vaccine, inactivated 11/02/10 Minh rded influenza virus vaccine, inactivated 12/22/09 Minh rded influenza virus vaccine, inactivated 02/11/09 Minh rded influenza virus vaccine, inactivated 02/28/07 Minh rded tetanus/diphth/pertuss (Tdap) adult/adol 06/20/12 Recorded tetanus/diphth/pertuss (Tdap) adult/adol 02/08/07 Recorded Novel [id number], all formulation 02/19/09 Recorded rubella virus vaccine 02/21/00 Recorded Medications Albuterol (Eqv-ProAir HFA) 90 mcg/inh inhalation aerosol See Instructions, . use with spacer chamber, 0 Refill(s) Start Date: 02/24/22 Status: Ordered cyclobenzaprine 5 mg oral tablet 5 mg = 1 tab, Oral, BID, PRN as needed for muscle spasm, # 20 tab, 0 Refill(s), Pharmacy: [facility] #[id number], 149.86, cm, 02/24/22 21:23:00 EST, Height/Length Dosing, 85.9, kg, 02/24/22 21:23:00 EST, Weight Dosing Start Date: 02/25/22 Stop Date: 03/07/22 Status: Ordered Medrol 4 mg oral tablet 4 mg = 1 tab, Oral, Daily, # 10 tab, 0 Refill(s), Pharmacy: [facility] #[id number], 149.86, cm, 02/24/22 21:23:00 EST, Height/Length Dosing, 85.9, kg, 02/24/22 21:23:00 EST, Weight Dosing Start Date: 02/25/22 Stop Date: 03/07/22 Status: Ordered NovoLOG FlexPen 100 units/mL injectable solution See Instructions, Subcutaneous BID(AC), 0 Refill(s) Start Date: 02/24/22 Status: Ordered oxyCODONE 5 mg oral capsule See Instructions, PRN as needed for pain, 1-2 cap Oral every 6 hr, # 10 cap, 0 Refill(s), Pharmacy:[facility] #[id number], 149, cm, 02/26/22 2:12:00 EST, Height/Length Dosing, [...] wheezing, # 15 g, 2 Refill(s), Pharmacy: [facility] #[id number] Start Date: 11/18/21 Status: Ordered Social History Social History Type Response Tobacco Never tobacco user T obacco Use:. Sex Female Patient Care team information Care Team Personnel Name: Bharati Mares WALL COVERING CONTRACTOR Position: No Access Member Role: Informed Provider Address: Address: [address] Care Team Related Persons Name: LING AMES
--- OUTSIDE RECORDS SUMMARY | 2023-02-21 16:58 | XMS_ITS | Continuity of Care Document ---
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 Name Role Phone Vishnu, Bharati Hernandez Primary Care Physician Encounter [facility] Date(s): 07/31/22 - 07/31/[address] [address] Encounter Diagnosis Lumbar strain(Discharge Diagnosis) - 07/31/22 Discharge Disposition: Home or Self Care Attending Physician: Johanna Chirinos MD Admitting Physician: Johanna Chirinos MD Allergies, Adverse Reactions, Alerts Substance Reaction Severity Status SHELLFISH DERIVED Unknown Active acetaminophen-hydrocodone Unknown Ac tive acetaminophen-oxycodone Unknown Acti ve varicella virus vaccine Skin rash Mild Acti ve cephalosporins Unknown Active penicillins Unknown Active Assessment and Plan Extracted from: Title:Clinical Document Author:Rasheeda Christian te:07/31/22 Diagnosis: 1. Lumbar strain Comment: Diagnosis: Urination painful Comment: Functional Status 07/31/22 Other exposure to Infectious Disease Non e [...] Recorded tetanus/diphth/pertuss (Tdap) adult/adol 02/08/07 Recorded Novel [id number], all formulation 02/19/09 Recorded rubella virus vaccine 02/21/00 Recorded Medications Albuterol (Eqv-ProAir HFA) 90 mcg/inh inhalation aerosol See Instructions, . use with spacer chamber, 0 Refill(s) Start Date: 02/24/22 Status: Ordered cyclobenzaprine 5 mg oral tablet 5 mg = 1 tab, Oral, BID, PRN as needed for muscle spasm, # 20 tab, 0 Refill(s), Pharmacy: [email or web address] #[id number], 149.86, cm, 02/24/22 21:23:00 EST, Height/Length Dosing, 85.9, kg, 02/24/22 21:23:00 EST, Weight Dosing Start Date: 02/25/22 Stop Date: 03/07/22 Status: Ordered Medrol 4 mg oral tablet 4 mg = 1 tab, Oral, Daily, # 10 tab, 0 Refill(s), Pharmacy: [facility] #[id number], 149.86, cm, 02/24/22 21:23:00 EST, Height/Length Dosing, 85.9, kg, 02/24/22 21:23:00 EST, Weight Dosing Start Date: 02/25/22 Stop Date: 03/07/22 Status: Ordered NovoLOG FlexPen 100 units/mL injectable solution See Instructions, Subcutaneous BID(AC), 0 Refill(s) Start Date: 02/24/22 Status: Ordered oxyCODONE 5 mg oral capsule See Instructions, PRN as needed for pain, 1-2 cap Oral every 6 hr, # 10 cap, 0 Refill(s), Pharmacy:[facility] #[id number], 149, cm, 02/26/22 2:12:00 EST, Height/Length Dosing, [...] wheezing, # 15 g, 2 Refill(s), Pharmacy: [facility] #[id number] Start Date: 11/18/21 Status: Ordered Results Laboratory List Name Date Test Urine Qual 07/31/22 Urinalysis with Micro if Indicated and C ulture if Indicated 07/31/22 Most recent to oldest [Reference Range]: 1 UA Color Yellow (07/31/22 11:49 AM) UA Urobilinogen Normal (07/31/22 11:49 AM) UA Bili [Negative] Negative (07/31/22 11:49 AM) UA Ketones Trace *ABN* (07/31/22 11:49 AM) UA Leuk Est Negative (07/31/22 11:49 AM) UA Nitrite Negative (07/31/22 11:49 AM) UA Glucose [Negative] Negative (07/31/22 11:49 AM) UA Protein Negative (07/31/22 11:49 AM) UA Blood Negative (07/31/22 11:49 AM) UA Spec Grav 1.025 *NA* (07/31/22 11:49 AM) UA pH 6.0 *NA* (07/31/22 11:49 AM) UA Appear Clear (07/31/22 11:49 AM) U hCG Ql Negative (07/31/22 11:49 AM) Vital Signs Most recent to oldest [Reference Range]: 1 2 Temperature Temporal Artery [36-38 Deg C ] 36.2 Deg C (07/31/22 11:36 AM) Peripheral Pulse Rate [60-100 bpm] 105 b pm *HI* (07/31/22 12:20 PM) 116 bpm *HI* (07/31/22 11:36 AM) Respiratory Rate [12-24 br/min] 18 br/mi n (07/31/22 11:36 AM) Blood Pressure [90-140/60-90 mmHg] 116/8 5mmHg (07/31/22 12:20 PM) 125/113mmHg (07/31/22 11:36 AM) Weight Dosing 85.73 kg (07/31/22 11:41 AM) Weight Estimated 85.73 kg (07/31/22 11:36 AM) Height/Length Dosing 149.000 cm (07/31/22 11:41 AM) Height/Length Estimated 149.000 cm (07/31/22 11:36 AM) Social History Social History Type Response Tobacco Never tobacco user T obacco Use:. Sex Female Hospital Discharge Instructions Patient Education 07/31/2022 11:18:18 Lumbar Strain Lumbar Strain A lumbar strain, which is sometimes called a low-back strain, is a stretch or tear in a muscle or the strong cords of tissue that attach muscle to bone (tendons) in the lower back (lumbar spine). This type of injury occurs when muscles or tendons are torn or are stretched beyond their limits. Lumbar strains can range from mild to severe. Mild strains may involve stretching a muscle or tendon without tearing it. These may heal in 1???2 weeks. More severe strains involve tearing of muscle fibers or tendons. These will cause more pain and may take 6???8 weeks to heal. What are the causes? This condition may be caused by: ??? Trauma, such as a fall or a hit to the body. ??? Twisting or overstretching the back. This may result from doing activities that need a lot of energy, such as lifting heavy objects. What increases the risk? This injury is more common in: ??? Athletes. ??? People with obesity. ??? People who do repeated lifting, bending, or other movements that involve their back. What are the signs or symptoms? Symptoms of this condition may include: ??? Sharp or dull pain in the lower back that does not go away. The pain may extend to the buttocks. ??? Stiffness or limited range of motion. ??? Sudden muscle tightening (spasms). How is this diagnosed? This condition may be diagnosed based on: ??? Your symptoms. ??? Your medical history. ??? A physical exam. ??? Imaging tests, such as: ??? X-rays. ??? MRI. How is this treated? Treatment for this condition may include: ??? Rest. ??? Applying heat and cold to the affected area. ??? Aksg-jnz-dianimf medicines to help relieve pain and inflammation, such as NSAIDs. ??? Prescription pain medicine and muscle relaxants may be needed for a short time. ??? Physical therapy. Follow these instructions at home: Managing pain, stiffness, and swelling ??? If directed, put ice on the injured area during the first 24 hours after your injury. ??? Put ice in a plastic bag. ??? Place a towel between your skin and the bag. ??? Leave the ice on for 20 minutes, 2???3 times a day. ??? If directed, apply heat to the affected area as often as told by your health care provider. Usethe heat source that your health care provider [...] greater risk of getting burned. Activity ??? Rest and return to your normal activities as told by your health care provider. Ask your healthcare provider what activities are safe for you. ??? Do exercises as told by your health care provider. Medicines ??? Take bppo-zvv-mltrsoi and prescription medicines only as told by your health care provider. ??? Ask your health care provider if the medicine prescribed to you: ??? Requires you to avoid driving or using heavy machinery. ??? Can cause constipation. You may need to take these actions to prevent or treat constipation: ??? Drink enough fluid to keep your urine pale yellow. ??? Take nqlm-lla-gofsxui or prescription medicines. ??? Eat foods that are high in fiber, such as beans, whole grains, and fresh fruits and vegetables. ??? Limit foods that are high in fat and processed sugars, such as fried or sweet foods. Injury prevention To prevent a future low-back injury: ??? Always warm up properly before physical activity or sports. ??? Cool down and stretch after being active. ??? Use correct form when playing sports and lifting heavy objects. Bend your knees before you liftheavy objects. ??? Use good posture when sitting and standing. ??? Stay physically fit and keep a healthy weight. ??? Do at least 150 minutes of moderate-intensity exercise each week, such as brisk walking or water aerobics. ??? Do strength exercises at least 2 times each week. General instructions ??? Do not use any products that contain nicotine or tobacco, such as cigarettes, e-cigarettes, andchewing tobacco. If you need help quitting, ask your health care provider. ??? Keep all follow-up visits as told by your health care provider. This is important. Contact a health care provider if: ??? Your back pain does not improve after 6 weeks of treatment. ??? Your symptoms get worse. Get help right away if: ??? Your back pain is severe. ??? You are unable to stand or walk. ??? You develop pain in your legs. ??? You develop weakness in your buttocks or legs. ??? You have difficulty controlling when you urinate or when you have a bowel movement. ??? You have frequent, painful, or bloody urination. ??? You have a temperature over 101.0??F (38.3??C) Summary ??? A lumbar strain, which is sometimes called a low-back strain, is a stretch or tear in a muscle or the strong cords of tissue that attach muscle to bone (tendons) in the lower back (lumbar spine). ??? This type of injury occurs when muscles or tendons are torn or are stretched beyond their limits. ??? Rest and return to your normal activities as told by your health care provider. If directed, apply heat and ice to the affected area as often as told by your health care provider. ??? Take enub-uwn-rlbpaxu and prescription medicines only as told by your health care provider. ??? Contact a health care provider if you have new or worsening symptoms. This information is not intended to replace advice given to you by your health care provider. Make sure you discuss any questions you have with your health care provider. Document Revised: 12/06/2018 Document Reviewed: 12/06/2018 [employer] Patient Education ?? 2021 [employer]. Follow Up Care 07/31/2022 11:36:36 With:Follow up with primary care provider Address:Unknown When:1 month Physician Emergency department Note * Richardson Sanchez MD: PERFORM Event Display: ED Note Physician Authored Date: [id number] HELENA DOMINGUEZ :1980 Age:41 years Sex:Female Visit Date:07/31/2022 Basic Information Time Seen: Richardson Sanchez MD / 07/31/2022 11:42 Chief Complaint pt had some UTI symptoms and took AZO, but pt is a diabetic and on steroids and it states that you shouldnt take it if ytou have either of those. pt had some back pain with this, as well as burning on urination, as well as frequency. History Of Present Illness: 41-year-old female past medical history??low back pain,??disc herniation presents with back pain, suprapubic pain. ??Patient states has bilateral pain in the lumbar??spine radiating around bilaterally??to the lower abdomen. ??Denies any other acute injury she did have a fall back in Januaryshe had a disc herniation as a result of that.?? No saddle paresthesias or urinary incontinence. ??No upper abdominal pain nausea vomiting fevers chills chest pain shortness of breath or any other symptoms. Review of Systems: Back pain Physical Exam Vitals & Measurements T:??36.2?C ??(Temporal Artery)?? HR:??116??(Peripheral)?? RR:??18?? BP:??125/113?? SpO2:??96%?? HT:??149.000??cm?? WT:??85.73??kg??(Estimated)?? O2 Therapy:??Room air?? General: Alert and oriented, well nourished,?No??acute distress Eye: PERRL, EOMI,?Normal?conjunctiva HENT: Normocephalic Lungs: Clear to auscultation and percussion,?Non-labored?? respiration Heart:?Abnormal?? rate,?Regular??rhythm Abdomen: Soft, non-tender, non-distended Musculoskeletal:??Reproducible paraspinal musculature lower back Skin: Skin is warm, dry and pink,?No??rashes,?No??lesions Neurologic: Awake, alert and oriented X4,??neurologic exam bilateral lower extremities is normal Medical Decision Makin-year-old female presents with??lumbar back pain. ??This is on a more chronic basis for her as she is??been dealing with this since January after she fell, states she had an MRI done which??diagnosed disc herniation. ??She does not have any radiation of the pain at this time into the lower extremities, no numbness or weakness of the lower extremities. ??No evidence of cord compression clinically.?? Vitals are stable, slightly tachycardic??but??this reduced after patient was in the room. ??Noacute distress clinically. ??Some reproducible pain in the lumbar spine.?? She did have some pain with urination, thus??UA was obtained but did not show evidence of urinary tract infection. ?? test negative.?? Etiology of symptoms most likely secondary to??patient's chronic lumbar??back pain. ??Was given Toradol IM here. ??Discussed pain??options as an outpatient. ??Has been prescribed??gabapentin at home which tends to help her symptoms.?? Follow-up with primary care. ??She already has physical therapy ordered as soon as she??sees a??surgeon??which she was referred to as an outpatient. ??Discharged stable condition return precautions to ED. Procedure No Qualifying Data Assessment/Plan 1.??Lumbar strain??S39.012A Ordered: Discharge Patient, 07/31/22 12:18:00 EDT, Home Independently, Constant Indicator ?? Patient Education Lumbar Strain Follow Up With When Contact Information Follow up with primary care provider Within 1 month Additional Instructions: Medication Reconciliation Unchanged albuterol (Albuterol (Eqv-ProAir HFA) [...] Historical No qualifying data Medication Administration Given Toradol, 30 mg, IM Allergies varicella virus vaccine??(Skin rash) SHELLFISH DERIVED acetaminophen-hydrocodone acetaminophen-oxycodone cephalosporins penicillins Social History Alcohol Never Electronic Cigarette/Vaping Electronic Cigarette Use: Never. Substance Use Current, CBD Tobacco Never tobacco user Tobacco Use:. Lab Results Testing?? LATEST RESULTS?? HISTORICAL RESULTS?? U hCG Ql?? 07/31/22 11:49?? Negative?? 02/24/22?? Negative? UA Macroscopic?? LATEST RESULTS?? HISTORICAL RESULTS?? UA Color?? 07/31/22 11:49?? Yellow?? 02/26/22?? Yellow?? UA Appear?? 07/31/22 11:49?? Clear?? 02/26/22?? Clear?? UA Glucose?? 07/31/22 11:49?? Negative?? 02/26/22?? 1+ Abnormal?? UA Bili?? 07/31/22 11:49?? Negative?? 02/26/22?? Negative?? UA Ketones?? 07/31/22 11:49?? Trace Abnormal?? 02/26/22?? Negative?? UA Spec Grav?? 07/31/22 11:49?? 1.025?? 02/26/22?? >=1.030?? UA Blood?? 07/31/22 11:49?? Negative?? 02/26/22?? Negative?? UA pH?? 07/31/22 11:49?? 6.0?? 02/26/22?? 5.5?? UA Protein?? 07/31/22 11:49?? Negative?? 02/26/22?? Negative?? UA Urobilinogen?? 07/31/22 11:49?? Normal?? 02/26/22?? Normal?? UA Nitrite?? 07/31/22 11:49?? Negative?? 02/26/22?? Negative?? UA Leuk Est?? 07/31/22 11:49?? Negative?? 02/26/22?? Negative? Electronically Signed on 07/31/22 12:18 PM Richardson Sanchez MD Emergency department Discharge instructions * Richardson Sanchez MD: PERFORM Event Display: ED Discharge Information Authored Date: [id number] HELENA DOMINGUEZ :1980 Age:41 years Sex:Female Visit Date:07/31/2022 Discharge Instructions We would like to thank you for allowing us to assist you with your healthcare needs. The following includes patient education materials and information regarding your injury/illness. Diagnosis from Today's Visit Lumbar strain Discharge Vitals Temperature??(Temporal Artery) 97.2 ??F (36.2 ??C) Heart Rate??(Peripheral) 116 Respiratory Rate?? 18 Blood Pressure?? 125/113?? Height?? 58.66 in (149.000 cm) Weight??(Estimated) 189.03 lb (85.73 kg) Allergies varicella virus vaccine??(Skin rash) SHELLFISH DERIVED acetaminophen-hydrocodone acetaminophen-oxycodone cephalosporins penicillins What to Do Next You Need to Schedule the Following Appointments Follow Up with??Follow up with primary care provider When:??Within 1 month You were treated today on an emergency [...] How Much When Why Instructions Next Dose Unchanged albuterol (Albuterol (Eqv-ProAir HFA) 90 mcg/ [...] needed for as needed for pain ?? Education Materials Lumbar Strain A lumbar strain, which is sometimes called a low-back strain, is a stretch or tear in a muscle or the strong cords of tissue that attach muscle to bone (tendons) in the lower back (lumbar spine). This type of injury occurs when muscles or tendons are torn or are stretched beyond their limits. Lumbar strains can range from mild to severe. Mild strains may involve stretching a muscle or tendon without tearing it. These may heal in 1???2 weeks. More severe strains involve tearing of muscle fibers or tendons. These will cause more pain and may take 6???8 weeks to heal. What are the causes? This condition may be caused by: ? Trauma, such as a fall or a hit to the body. ? Twisting or overstretching the back. This may result from doing activities that need a lot of energy, such as lifting heavy objects. What increases the risk? This injury is more common in: ? Athletes. ? People with obesity. ? People who do repeated lifting, bending, or other movements that involve their back. What are the signs or symptoms? Symptoms of this condition may include: ? Sharp or dull pain in the lower back that does not go away. The pain may extend to the buttocks. ? Stiffness or limited range of motion. ? Sudden muscle tightening (spasms). How is this diagnosed? This condition may be diagnosed based on: ? Your symptoms. ? Your medical history. ? A physical exam. ? Imaging tests, such as: ? X-rays. ? MRI. How is this treated? Treatment for this condition may include: ? Rest. ? Applying heat and cold to the affected area. ? Sycz-cro-ctrdqzc medicines to help relieve pain and inflammation, such as NSAIDs. ? Prescription pain medicine and muscle relaxants may be needed for a short time. ? Physical therapy. Follow these instructions at home: Managing pain, stiffness, and swelling ? If directed, put ice on the injured area during the first 24 hours after your injury. ? Put ice in a plastic bag. ? Place a towel between your skin and the bag. ? Leave the ice on for 20 minutes, 2???3 times a day. ? If directed, apply heat to the affected area as often as told by your health care provider. Use theheat source that your health care provider recommends, [...] greater risk of getting burned. Activity ? Rest and return to your normal activities as told by your health care provider. Ask your health care provider what activities are safe for you. ? Do exercises as told by your health care provider. Medicines ? Take wkla-rux-wqahvuz and prescription medicines only as told by your health care provider. ? Ask your health care provider if the medicine prescribed to you: ? Requires you to avoid driving or using heavy machinery. ? Can cause constipation. You may need to take these actions to prevent or treat constipation: ? Drink enough fluid to keep your urine pale yellow. ? Take jqdb-xbd-auuqroe or prescription medicines. ? Eat foods that are high in fiber, such as beans, whole grains, and fresh fruits and vegetables. ? Limit foods that are high in fat and processed sugars, such as fried or sweet foods. Injury prevention To prevent a future low-back injury: ? Always warm up properly before physical activity or sports. ? Cool down and stretch after being active. ? Use correct form when playing sports and lifting heavy objects. Bend your knees before you lift heavy objects. ? Use good posture when sitting and standing. ? Stay physically fit and keep a healthy weight. ? Do at least 150 minutes of moderate-intensity exercise each week, such as brisk walking or water aerobics. ? Do strength exercises at least 2 times each week. General instructions ? Do not use any products that contain nicotine or tobacco, such as cigarettes, e- cigarettes, and chewing tobacco. If you need help quitting, ask your health care provider. ? Keep all follow-up visits as told by your health care provider. This is important. Contact a health care provider if: ? Your back pain does not improve after 6 weeks of treatment. ? Your symptoms get worse. Get help right away if: ? Your back pain is severe. ? You are unable to stand or walk. ? You develop pain in your legs. ? You develop weakness in your buttocks or legs. ? You have difficulty controlling when you urinate or when you have a bowel movement. ? You have frequent, painful, or bloody urination. ? You have a temperature over 101.0??F (38.3??C) Summary ? A lumbar strain, which is sometimes called a low-back strain, is a stretch or tear in a muscle or the strong cords of tissue that attach muscle to bone (tendons) in the lower back (lumbar spine). ? This type of injury occurs when muscles or tendons are torn or are stretched beyond their limits. ? Rest and return to your normal activities as told by your health care provider. If directed, apply heat and ice to the affected area as often as told by your health care provider. ? Take umsi-mgk-aaqgkre and prescription medicines only as told by your health care provider. ? Contact a health care provider if you have new or worsening symptoms. This information is not intended to replace advice given to you by your health care provider. Make sure you discuss any questions you have with your health care provider. Document Revised: 12/06/2018 Document Reviewed: 12/06/2018 [employer] Patient Education ?? 2021 [employer] Tests Performed Medications and Immunizations Administered Given Toradol, 30 mg, IM Lab Test Name Test Result Date/Time U hCG Ql NEGATIVE 07/31/2022 11:49 EDT UA Color YELLOW. 07/31/2022 11:49 EDT UA Appear CLEAR. 07/31/2022 11:49 EDT UA Glucose NEGATIVE 07/31/2022 11:49 EDT UA Bili NEGATIVE 07/31/2022 11:49 EDT UA Ketones TRACE. 07/31/2022 11:49 EDT UA Spec Grav 1.025 07/31/2022 11:49 EDT UA Blood NEGATIVE 07/31/2022 11:49 EDT UA pH 6.0 07/31/2022 11:49 EDT UA Protein NEGATIVE 07/31/2022 11:49 EDT UA Urobilinogen 0.2 Uro 07/31/2022 11:49 EDT UA Nitrite NEGATIVE 07/31/2022 11:49 EDT UA Leuk Est NEGATIVE 07/31/2022 11:49 EDT Patient/Data Center Architect Signature Patient Name:HELENA DOMINGUEZ I have received this information and my questions have been answered. Patient/Data Center Architect Name: Patient/Data Center Architect Signature: Relationship to Patient: Witness Name/Signature: Date: Electronically Signed on: 07/31/2022 12:18 EDTSigned by:TRM Discharge summary * Rasheeda Christian: PERFORM Event Display: Discharge Note Authored Date: * Rasheeda Christian: PERFORM Event Display: Discharge Note Authored Date: Diagnosis: 1. Lumbar strain Comment: Diagnosis: Urination painful Comment: Electronically Signed on 07/31/22 12:37 PM Rasheeda Christian Patient Care team information Care Team Personnel Name: Bharati Mares NP Position: No Access Member Role: Informed Provider Address: Address: [address] [address] Name: Bre Grider Position: Nurse Member Role: ED Nurse Name: Richardson Sanchez MD Position: Physician Member Role: ED Physician Address: Address: [facility] [address] [place] [address]- Care Team Related Persons Name: LING AMES
--- OUTSIDE RECORDS SUMMARY | 2023-02-21 16:58 | XMS_ITS | CCD ---
Author Name Unknown Address [address] [place] [address] [phone] Organization Unknown Address [address] [place] [address] [phone] Care Team Providers Care Professional Engineer Name Role Phone ART TRUJILLO Attending Physician [phone] ART TRUJILLO Er Physician 1 [phone] NIYA Redman Registered Nurse [phone] Vital Signs Vital Sign Value Unit Date/Time Recent/Initial ? BMI (Body Mass Index) 29.37 kg/m^2 06/25/2021 09: 17 Initial VS Weight Measured 165.79 lbs 06/25/2021 09:17 Ini tial VS Height 63 in 06/25/2021 09:17 Initial VS BSA (Body Surface Area) 1.83 m^2 06/25/2021 0 9:17 Initial VS BP Systolic 130 mmHg 06/25/2021 09:17 Initial VS BP Diastolic 86 mmHg 06/25/2021 09:17 Initia l VS Respiratory Rate 16 bpm 06/25/2021 09:17 In itial VS Heart Rate 102 bpm 06/25/2021 09:17 Initial VS O2 % BldC Oximetry 100 % 06/25/2021 09:17 Initial VS Body Temperature 36.2 degrees 06/25/2021 09:17 In itial VS Allergies Allergy Code Allergy Type Reaction Status PERCOCET 09787 Drug allergy Hives Active PENICILLIN 0 Drug allergy SWELLING Active Procedures Unknown or Not Available. History of Immunizations Unknown or Not Available. Problems Problem Code Start Date Resolved Date Status Pain in back [id number] 10/12/2022 Resolved Results Unknown or Not Available. Active Medications Unknown or Not Available. Medications Administered During Visit Unknown or Not Available. Encounters Encounter Diagnosis Diagnosis Code Start Date Scabies B86 06/25/2021 Social History Smoking Status Code Start Date End Date Never smoker [id number] Patient Decision Aids Unknown or Not Available. Discharge Instructions You were admitted to [facility] on 06/25/2021 09:06 with a principal diagnosis of Scabies You were discharged from [facility] on 06/25/2021 10:15 Should you have any [...]
--- OUTSIDE RECORDS SUMMARY | 2023-02-21 16:58 | XMS_ITS | Continuity of Care Document ---
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 Criminal Justice Name Role Phone Bharati Mares Primary Care Physician Encounter [facility] Date(s): 01/20/23 - 01/20/23 [facility] [address] [place] [address] Discharge Disposition: Home or Self Care Attending Physician: Christy Galindo Admitting Physician: Christy Galindo Allergies, Adverse Reactions, Alerts Substance Reaction Severity Status SHELLFISH DERIVED Unknown Active acetaminophen-hydrocodone Unknown Ac tive acetaminophen-oxycodone Unknown Acti ve varicella virus vaccine Skin rash Mild Acti ve cephalosporins Unknown Active penicillins Unknown Active Assessment and Plan Diagnostic Tests Pending * Urine Culture 01/20/23 Immunizations Given and Recorded Vaccine Date Status Refusal Reason influenza virus vaccine, live 11/12/20 Recorded influenza virus vaccine, inactivated 01/22/14 Minh rded influenza virus vaccine, inactivated 11/02/10 Minh rded influenza virus vaccine, inactivated 12/22/09 Minh rded influenza virus vaccine, inactivated 02/11/09 Minh rded influenza virus vaccine, inactivated 02/28/07 Minh rded tetanus/diphth/pertuss (Tdap) adult/adol 06/20/12 Recorded tetanus/diphth/pertuss (Tdap) adult/adol 02/08/07 Recorded Novel [id number], all formulation 02/19/09 Recorded rubella virus vaccine 02/21/00 Recorded Medications Albuterol (Eqv-ProAir HFA) 90 mcg/inh inhalation aerosol See Instructions, . use with spacer chamber, 0 Refill(s) Start Date: 02/24/22 Status: Ordered cyclobenzaprine 5 mg oral tablet 5 mg = 1 tab, Oral, BID, PRN as needed for muscle spasm, # 20 tab, 0 Refill(s), Pharmacy: [facility] #[id number], 149.86, cm, 02/24/22 21:23:00 EST, Height/Length Dosing, 85.9, kg, 02/24/22 21:23:00 EST, Weight Dosing Start Date: 02/25/22 Stop Date: 03/07/22 Status: Ordered Medrol 4 mg oral tablet 4 mg = 1 tab, Oral, Daily, # 10 tab, 0 Refill(s), Pharmacy: [facility] #[id number], 149.86, cm, 02/24/22 21:23:00 EST, Height/Length Dosing, 85.9, kg, 02/24/22 21:23:00 EST, Weight Dosing Start Date: 02/25/22 Stop Date: 03/07/22 Status: Ordered NovoLOG FlexPen 100 units/mL injectable solution See Instructions, Subcutaneous BID(AC), 0 Refill(s) Start Date: 02/24/22 Status: Ordered oxyCODONE 5 mg oral capsule See Instructions, PRN as needed for pain, 1-2 cap Oral every 6 hr, # 10 cap, 0 Refill(s), Pharmacy:[facility] #[id number], 149, cm, 02/26/22 2:12:00 EST, Height/Length Dosing, 76, kg, 02/26/22 2:12:00 EST, Weight Dosing Start Date: 02/26/22 Status: Ordered Tresiba 40 units =, Subcutaneous, Daily, 0 Refill(s) Start Date: 02/24/22 Status: Ordered triamcinolone 0.1% topical cream See Instructions, 1 sara Topical BID to affected area apply a thin film 1 week, # 80 g, 6 Refill(s),11/08/23 8:01:00 PM CDT, Pharmacy: [facility] #[id number], 149, cm, 11/07/22 20:39:00 EDT, Height/Length [...] wheezing, # 15 g, 2 Refill(s), Pharmacy: [facility] #[id number] Start Date: 11/18/21 Status: Ordered Social History Social History Type Response Tobacco Never tobacco user T obacco Use:. 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
--- OUTSIDE RECORDS SUMMARY | 2023-02-21 16:58 | XMS_ITS | Continuity of Care Document ---
Author Name Unknown Organization [facility] Address [address] [place] [address] Care Team Providers Care Licensing Specialist Name Role Phone Bharati Mares Primary Care Physician Encounter [facility] Date(s): 12/27/22 - 12/27/22 [facility] [address] [place] [address] Discharge Disposition: Home or Self Care Attending [...] Recorded tetanus/diphth/pertuss (Tdap) adult/adol 02/08/07 Recorded Novel [id number], all formulation 02/19/09 Recorded rubella virus vaccine 02/21/00 Recorded Medications Albuterol (Eqv-ProAir HFA) 90 mcg/inh inhalation aerosol See Instructions, . use with spacer chamber, 0 Refill(s) Start Date: 02/24/22 Status: Ordered cyclobenzaprine 5 mg oral tablet 5 mg = 1 tab, Oral, BID, PRN as needed for muscle spasm, # 20 tab, 0 Refill(s), Pharmacy: [facility] #[id number], 149.86, cm, 02/24/22 21:23:00 EST, Height/Length Dosing, 85.9, kg, 02/24/22 21:23:00 EST, Weight Dosing Start Date: 02/25/22 Stop Date: 03/07/22 Status: Ordered Medrol 4 mg oral tablet 4 mg = 1 tab, Oral, Daily, # 10 tab, 0 Refill(s), Pharmacy: [facility] #[id number], 149.86, cm, 02/24/22 21:23:00 EST, Height/Length Dosing, 85.9, kg, 02/24/22 21:23:00 EST, Weight Dosing Start Date: 02/25/22 Stop Date: 03/07/22 Status: Ordered NovoLOG FlexPen 100 units/mL injectable solution See Instructions, Subcutaneous BID(AC), 0 Refill(s) Start Date: 02/24/22 Status: Ordered oxyCODONE 5 mg oral capsule See Instructions, PRN as needed for pain, 1-2 cap Oral every 6 hr, # 10 cap, 0 Refill(s), Pharmacy:[facility] #[id number], 149, cm, 02/26/22 2:12:00 EST, Height/Length Dosing, 76, kg, 02/26/22 2:12:00 EST, Weight Dosing Start Date: 02/26/22 Status: Ordered Tresiba 40 units =, Subcutaneous, Daily, 0 Refill(s) Start Date: 02/24/22 Status: Ordered triamcinolone 0.1% topical cream See Instructions, 1 sara Topical BID to affected area apply a thin film 1 week, # 80 g, 6 Refill(s),11/08/23 8:01:00 PM CDT, Pharmacy: [facility] #[id number], 149, cm, 11/07/22 20:39:00 EDT, Height/Length [...] wheezing, # 15 g, 2 Refill(s), Pharmacy: [facility] #[id number] Start Date: 11/18/21 Status: Ordered Social History Social History Type Response Tobacco Never tobacco user T obacco Use:. 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
[2023-02-21 18:04] LABS: Abs Immature Grans 0.03 10^3/uL (0.0-0.06); Absolute Basophil Count 0.04 10^3/uL (0.0-0.2); Absolute Eosinophil Count 0.39 10^3/uL (0.0-0.7); Absolute Lymphocyte Count 2.64 10^3/uL (1.2-3.4); Absolute Neutrophil Count 5.87 10^3/uL (1.2-6.7); Basophils % 0.4; Eosinophils % 4.1; HCT 43.8 % (36.0-46.0); HGB 14.4 g/dL (11.2-15.7); Immature Grans % 0.3; Lymphocytes % 27.6; MCH 29.8 pg (27.0-33.0); MCHC 32.9 % (32.0-36.0); MCV 91 fL (80-95); MPV 10.5 fL (8.0-11.0); Monocytes % 6.3; Neutrophils % 61.3; Platelet Count 368 10^3/uL (130-400); RBC 4.83 10^6/uL (3.93-5.22); RDW 12.5 % (11.7-14.6); RDW-SD 41.2 fL; WBC 9.57 10^3/uL (4.4-10.8)
[2023-02-21 18:16] LABS: ALT 23 U/L (14-59); AST 16 U/L (15-37); Albumin 3.2 g/dL (3.4-5.0); Alkaline Phosphatase 102 U/L (46-116); Anion Gap 7.1 mmol/L (3-11); BUN 18 mg/dL (7-18); Bilirubin, Total 0.4 mg/dL (0.2-1.0); CO2 26.9 mmol/L (21.0-32.0); CREATININE 0.8 mg/dL (0.55-1.02); Calcium 8.2 mg/dL (8.5-10.1); Chloride 104 mmol/L (98-107); Estimated GFR 94.87 (mL/min/1.73m2); Glucose 190 mg/dL (74-106); Potassium 3.8 mmol/L (3.5-5.1); Sodium 138 mmol/L (136-145); Total Protein 6.8 g/dL (6.4-8.2)
[2023-02-21 18:17] LABS: Hemoglobin A1C 8.3 % (<5.7)
== END 2023-02-21 16:53 | disposition home or self-care (01) ==
LOC: NCHCN 16:52
PROVIDERS: PCP Nurse Practitioner Family; Visit Provider Nurse Practitioner Family
DX: E11.9 Type 2 diabetes mellitus without complications (principal)
CPT/HCPCS: 80053; 83036; 85025

== ENCOUNTER 2024-08-28 19:38 | Outpatient (REF) | payer MEDICARE, SELFPAY ==
[2024-08-28 21:31] LABS: HCT 42.8 % (36.0-46.0); HGB 14.5 g/dL (11.2-15.7); MCH 30.7 pg (27.0-33.0); MCHC 33.9 % (32.0-36.0); MCV 91 fL (80-95); MPV 10.7 fL (8.0-11.0); Platelet Count 373 10^3/uL (130-400); RBC 4.72 10^6/uL (3.93-5.22); RDW 12.4 % (11.7-14.6); RDW-SD 40.8 fL; WBC 9.41 10^3/uL (4.4-10.8)
[2024-08-28 21:59] LABS: ALT 25 U/L (14-59); AST 12 U/L (15-37); Albumin 3.6 g/dL (3.4-5.0); Alkaline Phosphatase 135 U/L (46-116); Anion Gap 8.3 mmol/L (3-11); BUN 12 mg/dL (7-18); Bilirubin, Total 0.2 mg/dL (0.2-1.0); CO2 26.7 mmol/L (21.0-32.0); Calcium 8.3 mg/dL (8.5-10.1); Chloride 102 mmol/L (98-107); Estimated GFR 114.86 (mL/min/1.73m2); Glucose 218 mg/dL (74-106); Hemoglobin A1C 7.4 % (<5.7); Potassium 3.8 mmol/L (3.5-5.1); Sodium 137 mmol/L (136-145); TSH 1.74 uIU/mL (0.36-3.74); Total Protein 6.8 g/dL (6.4-8.2)
== END 2024-08-28 19:39 | disposition home or self-care (01) ==
LOC: NCHCN 19:38
PROVIDERS: PCP Nurse Practitioner Family; Visit Provider Nurse Practitioner Family
DX: E11.9 Type 2 diabetes mellitus without complications (principal)
CPT/HCPCS: 80053; 85027; 83036; 84443